=== PATIENT | male | born 1975 | race Caucasian/White ===

== ENCOUNTER 2018-04-11 18:20 | Emergency (ER) | payer MEDICAID, SELFPAY ==
[2018-04-11 18:20] VITALS: BP 119/42; PULSE 128; RESP 16; TEMP 36.3; O2SAT 99; BMI 26.6
[2018-04-11 19:41] VITALS: PULSE 81; RESP 18
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
--- NOTE | 2018-04-11 20:57 | ED.DEP ---
ED Disposition - Plan for ED Patient: Disposition: Home or Assisted Living Chief Complaint: Upper Extremity Injury Instructions: ED Fx Hand Closed Prescriptions: Hydrocodone/Acetaminophen [[place] 5-325 Tablet] 1 - 2 each PO 4X/DAY PRN PRN 5 Days #20 tablet PRN Reason: Pain Referrals: Tawanda Suero DO [STAFF PHYSICIAN] - 1 Week
[2018-04-11] MEDS: HYDROcodone Bitartrate/Apap 5/325 Tablet PO (20:58)
[2018-04-11 21:01] VITALS: PULSE 79; RESP 18
--- NOTE | 2018-04-11 21:02 | ED.RN ---
THIS NURSE REVIEWED D/C INSTRUCTIONS WITH PT. PT VERBALIZED UNDERSTANDING OF INSTRUCTIONS. PT DENIES FURTHER NEEDS OR QUESTIONS AT THIS TIME. PT AMBULATES FROM DEPARTMENT ON OWN WITHOUT ASSISTANCE FROM STAFF
== END 2018-04-11 21:03 | disposition home or self-care (01) ==
PROVIDERS: Emergency Provider Emergency Medicine; Family Provider Family Medicine; PCP Family Medicine
DX: S62.316A Displaced fracture of base of fifth metacarpal bone, right hand, initial encounter for closed fracture (principal); W51.XXXA Accidental striking against or bumped into by another person, initial encounter; Y93.9 Activity, unspecified; Y92.9 Unspecified place or not applicable; F41.9 Anxiety disorder, unspecified; F32.9 Major depressive disorder, single episode, unspecified; Z79.899 Other long term (current) drug therapy; Z72.0 Tobacco use
CPT/HCPCS: 73110; 73130; 99283

== ENCOUNTER 2018-08-13 11:18 | Emergency (ER) | payer MEDICAID, SELFPAY ==
[2018-08-13 11:18] VITALS: BP 130/82; PULSE 89; RESP 16; TEMP 36.7; O2SAT 100; BMI 26.4
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
--- NOTE | 2018-08-13 11:34 | ED.DEP ---
ED Disposition - Plan for ED Patient: Chief Complaint: Upper Extremity Injury Instructions: ED Contusion Upper Ext Referrals: Job Duff MD [Primary Care Provider] - Additional Instructions: Follow-up with your outpatient providers all of them, and orthopedic surgeons follow all instructions you have been given
[2018-08-13 11:50] VITALS: BP 129/78; PULSE 96; RESP 16; O2SAT 100
== END 2018-08-13 12:05 | disposition home or self-care (01) ==
LOC: ED 11:57
PROVIDERS: Emergency Provider Emergency Medicine; Family Provider Family Medicine; PCP Family Medicine
DX: M79.641 Pain in right hand (principal); G89.29 Other chronic pain
CPT/HCPCS: 99282

== ENCOUNTER 2018-08-24 21:11 | Emergency (ER) | payer MEDICAID, SELFPAY ==
[2018-08-24 21:12] VITALS: BP 135/87; PULSE 100; RESP 16; TEMP 36.6; O2SAT 100; BMI 26.4
--- NOTE | 2018-08-24 21:44 | RAD_ITS ---
STUDY: X-RAY - LEFT FOOT CLINICAL: Male, 43 years old. Trauma TECHNIQUE: 3 view(s) of the foot. COMPARISON: None. FINDINGS: Normal talus, calcaneus, and tarsal bones. Normal visualized subtalar, talonavicular, calcaneocuboid, tarsal and tarsometatarsal articulations. Normal metatarsi. Normal metatarsophalangeal joint of the great toe. Normal tibial and fibular sesamoid bones. Normal interphalangeal joint of the great toe. Normal phalanges of the great toe. Normal second through fifth metatarsophalangeal joints. Normal interphalangeal joints and phalanges of the lesser toes. The soft tissue structures are unremarkable. RAD/Foot min 3 Views IMPRESSION: Normal x-ray examination of the foot. Electronically Signed: Eusebio Ashraf MD at 22:44 EST , Service support ,
[2018-08-24] MEDS: Naproxen 500 MG Tablet PO (21:54)
--- NOTE | 2018-08-24 21:59 | ED.VISSUMM ---
- ER Visit Summary Date of Service: 08/24/18 Chief Complaint: Fall History of Present Illness: The patient is a [address] Duff. He reports that 3 hours ago he slipped in his kitchen and twisted his left foot underneath him awkwardly. He has pain in his foot and ankle that are 10 out of 10 severity. Reports that he also hit both elbows on the floor. He has left elbow pain is 5 out of 10 severity and right elbow pain is 10 out of 10 severity. He denies any blow to the head or loss of consciousness. No neck or back pain. Physical Examination: Vitals: Stable. Afebrile. Neck: No vertebral tenderness. Full ROM without difficulty. Cleared by NEXUS criteria. Back: No vertebral tenderness. General: A&O x 3. NAD. Cardiovascular exam: Regular rate and rhythm, no murmur, rub or gallop. Respiratory exam: Chest nontender. No crepitus. Clear to auscultation bilaterally. No wheezes or stridor. Abdominal exam: Soft, nontender, nondistended, normal bowel sounds. No pain in RUQ or LUQ specifically. No peritoneal signs. Extremity: Erythema over the right olecranon process. There is no soft tissue swelling. He has no pain with flexion, extension, pronation, or supination of his elbow. There is no pain with axial load of his arm at his wrist. Left foot shows a contusion to the distal portion of the second through fifth metatarsals. This is moderately tender to palpation. He also has mild tenderness palpation to both the medial lateral malleoli. Is a 2+ dorsalis pedis pulse and normal sensation light touch. Test Results: Left foot and ankle x-rays are negative. Emergency Department Course and Treatment: Patient was treated with naproxen. He is resting comfortably. Treatment Plan: Patient will be discharged with naproxen. Instructed to follow-up with Dr. Duff in 1 week if not improving. Return to the emergency department for any worsening symptoms. Disposition: To home in improved and stable condition. Impression: 1. Fall. 2. Left foot contusion. 3. Left ankle sprain. This note was generated with [employer] software. It may contain incorrect words, spelling, and punctuation that were not noted in review of the chart prior to signing ED Disposition - Plan for ED Patient: Chief Complaint: Fall Instructions: ED Sprain Foot Prescriptions: Naproxen [Naprosyn] 500 mg PO BID #14 tablet Referrals: Job Duff MD [Primary Care Provider] - 1 Week if not improving
--- NOTE | 2018-08-24 22:00 | RAD_ITS ---
STUDY: X-RAY - LEFT ANKLE REASON FOR EXAM: Male, 43 years old. Trauma TECHNIQUE: 3 view(s) of the ankle. COMPARISON: None. FINDINGS: Normal visualized distal tibia and fibula. Normal medial and lateral malleoli. Normal tibiotalar articulation and ankle mortise. Normal visualized talus and calcaneus. The visualized subtalar, talonavicular, calcaneocuboid and tarsal articulations are normal. Mild soft tissue swelling overlying the lateral malleolus RAD/Ankle min 3 Views IMPRESSION: Mild lateral malleolus sprain. No evidence for acute fracture Electronically Signed: Isaiah Sorensen MD at 22:46 EST , Service support ,
--- NOTE | 2018-08-24 22:07 | ED.DCSUM_ITS ---
- ER Visit Summary Date of Service: 08/24/18 Chief Complaint: Fall History of Present Illness: The patient is a [address] Duff. He reports that 3 hours ago he slipped in his kitchen and twisted his left foot underneath him awkwardly. He has pain in his foot and ankle that are 10 out of 10 severity. Reports that he also hit both elbows on the floor. He has left elbow pain is 5 out of 10 severity and right elbow pain is 10 out of 10 severity. He denies any blow to the head or loss of consciousness. No neck or back pain. Physical Examination: Vitals: Stable. Afebrile. Neck: No vertebral tenderness. Full ROM without difficulty. Cleared by NEXUS criteria. Back: No vertebral tenderness. General: A&O x 3. NAD. Cardiovascular exam: Regular rate and rhythm, no murmur, rub or gallop. Respiratory exam: Chest nontender. No crepitus. Clear to auscultation bilateral ly. No wheezes or stridor. Abdominal exam: Soft, nontender, nondistended, normal bowel sounds. No pain in RUQ or LUQ specifically. No peritoneal signs. Extremity: Erythema over the right olecranon process. There is no soft tissue swelling. He has no pain with flexion, extension, pronation, or supination of his elbow. There is no pain with axial load of his arm at his wrist. Left foot shows a contusion to the distal portion of the second through fifth metatarsals. This is moderately tender to palpation. He also has mild tenderness palpation to both the medial lateral malleoli. Is a 2+ dorsalis pedis pulse and normal sensation light touch. Test Results: Left foot and ankle x-rays are negative. Emergency Department Course and Treatment: Patient was treated with naproxen. He is resting comfortably. Treatment Plan: Patient will be discharged with naproxen. Instructed to follow- up with Dr. Duff in 1 week if not improving. Return to the emergency department for any worsening symptoms. Disposition: To home in improved and stable condition. Impression: 1. Fall. 2. Left foot contusion. 3. Left ankle sprain. This note was generated with [employer] software. It may contain incorrect words, spelling, and punctuation that were not noted in review of the chart prior to signing ED Disposition - Plan for ED Patient: Chief Complaint: Fall Instructions: ED Sprain Foot Prescriptions: Naproxen [Naprosyn] 500 mg PO BID #14 tablet Referrals: Job Duff MD [Primary Care Provider] - 1 Week if not improving
--- OUTSIDE RECORDS SUMMARY | 2018-10-29 12:55 | XMS RPT_ITS | Summary of Care ---
:1975 Author Organization [facility] Address [address] [place] [address] Care Team Providers Name Role Phone Alice Duff MD Primary Care Provider Reason for Visit Reason Comments Chest Pain Auth/Cert Status Reason Specialty Diagnoses / Procedures Referred By Contact Referred To Contact Diagnoses Lightheadedness SOB (shortness of breath) Tachycardia Fever, unspecified fever cause Chest pain, unspecified type Sepsis (HCC) Encounter Details Date Type Department Care Team Description 06/26/2018 - Emergency [place] Ariel Brandt, DO [address] [facility] [place] [address] [facility] [place] [id number] [phone] Chest pain, unspecified type (Primary Dx); 06/28/2018 [facility], [facility] [address] [id number] [phone] Fever, unspecified fever cause; Oncology/Surgery Argenis Parekh MD [address] [id number] [phone] SOB (shortness of breath); [address] [place] [address] Tiago Chapa, [address] [id number] [phone] Tachycardia; [place] [id number] Allergies Active Allergy Reactions Severity Noted Date Comments Ibuprofen 06/26/2018 Penicillins 06/26/2018 Tetracycline 06/26/2018 as of this encounter Medications Prescription Sig. Disp. Refills Start Date End Date Status traMADol (ULTRAM) 50 mg Take 50 mg by Active tablet mouth 2 (two) times a day as needed for pain . gabapentin (NEURONTIN) Take 100 mg by Active 100 MG capsule mouth every 8 (eight) hours . buPROPion (WELLBUTRIN Take 150 mg by Active XL) 150 MG 24 hr tablet mouth 3 (three) times a day . QUEtiapine (SEROQUEL) Take 100 mg by Active 100 MG tablet mouth nightly . ciprofloxacin HCl Take 1 (one) 20 tablet 0 06/28/2018 Active (CIPRO) 500 MG tablet tablet (500 mg total) by mouth 2 (two) times a day . metroNIDAZOLE (FLAGYL) Take 1 (one) 30 tablet 0 06/28/2018 Active 500 MG tablet tablet (500 mg total) by mouth 3 (three) times a day with meals . as of this encounter Active Problems Problem Noted Date Sepsis (HCC) 06/27/2018 Social History Tobacco Use Types Packs/Day Years Used Date Current Every Day Smoker Cigarettes 1 Tobacco Cessation: Ready to Quit: No Alcohol Use Drinks/Week oz/Week Comments Yes OCC Sex Assigned at Date Recorded Not on file as of this encounter Last Filed Vital Signs Vital Sign Reading Time Taken Blood Pressure 114/72 06/28/2018 10:52 AM EST Pulse 94 06/28/2018 10:52 AM EST Temperature 36.7 ??C (98 ??F) 06/28/2018 11:48 AM EST Respiratory Rate 16 06/28/2018 10:52 AM EST Oxygen Saturation 100% 06/28/2018 10:52 AM EST Inhaled Oxygen Concentration - - Weight 86.6 kg (190 lb 14.7 oz) 06/27/2018 3:02 AM EST Height 177.8 cm (5' 10) 06/27/2018 3:02 AM EST Body Mass Index 27.39 06/27/2018 3:02 AM EST in this encounter Discharge Summaries Argenis Parekh MD - 06/28/2018 11:46 AM ESTFormatting of this note may be different from the original. DISCHARGE SUMMARY Patient: Ken Griffin Account: [id number] Admitted: 06/26/2018 Discharge Date/Time: No discharge date for patient encounter. Clinical Summary Discharge Diagnoses and Associated Hospital Course: Ken??Gaby??is a 43 y.o.??male??patient of Alice Duff MD??with history of anxiety/depression, and reported [place] in his 30's??presented with chest pain, and SOB. ?? 1. Atypical chest pain; possibly GERD due to abdominal pain; trop's negative and repeat EKG showed no ischemic changes. Resolved. 2. Sepsis; presented with fever, tachycardia, hypotension, and colitis. Received fluid bolus but still hypotensive; started maintenance IVF. Received more fluids over night. Remains afebrile and hemodynamically stable on 06/28. Resolved. Blood cx's so far negative. 3. Acute colitis; CT a/p showed colitis; possible IBD; Sed rate and CRP ordered and GI consulted. Antibiotics changed to Cipro and Flagyl. Tolerated diet well. GI recommended antibiotics for total of10 days then f/u with GI; will need C Scope in 6-8 weeks. 4. Acute diarrhea; was profuse about 10 times per day but now slowing down. C diff toxin and stool PCR sent. Resolved. 5. Acute renal failure; Cre 1.5 due to dehydration and diarrhea; started IVF and monitor Cre. Cre 0.69 and normal on 06/28. Resolved. 6. Hyponatremia; sodium 133 due to dehydration; IVF and monitor. Sodium 145 and normal. Resolved. 7. Anxiety/ depression; continue Wellbutrin. 8. Chronic pain syndrome; continue Neurontin and Tramadol ? Disposition ?? Discharge Location: Home ?? Estimated Discharge Date: 06/28 Surgeries No admission procedures for hospital encounter. Procedures No orders of the defined types were placed in this encounter. Consults Procedures ??? Hospitalize Patient To : ??? Inpatient consult to Gastroenterology Other Tests No orders of the defined types were placed in this encounter. Allergies Ibuprofen; Penicillins; and Tetracycline Discharge Diet Resume home diet Discharge Medications Medication List START taking these medications ciprofloxacin HCl 500 MG tablet Commonly known as: CIPRO Take 1 (one) tablet (500 mg total) by mouth 2 (two) times a day . metroNIDAZOLE 500 MG tablet Commonly known as: FLAGYL Take 1 (one) tablet (500 mg total) by mouth 3 (three) times a day with meals . CONTINUE taking these medications buPROPion 150 MG 24 hr tablet Commonly known as: WELLBUTRIN XL gabapentin 100 MG capsule Commonly known as: NEURONTIN QUEtiapine 100 MG tablet Commonly known as: SEROQUEL traMADol 50 mg tablet Commonly known as: ULTRAM Where to Get Your Medications You can get these medications from any pharmacy Bring a paper prescription for each of these medications ?? ciprofloxacin HCl 500 MG tablet ?? metroNIDAZOLE 500 MG tablet Physician(s) Primary Care Provider: Alice Duff MD, , Address: [address] [place] [address] / [place] [address] Follow Up: Marco Jason MD [address] [address] Follow up call soon to schedule a colonoscopy in 6-8 weeks Additional Information Patient instructions, including activity, were given to the patient/family at discharge. Please seethe After Visit Summary in the medical record for details. Time spent on discharge: > 30 minutes Completed by: Argenis Parekh on 06/28/18, 11:46 Rubio this encounter Progress Notes Argenis Parekh MD - 06/28/2018 10:57 AM MURIELDAVITALIY PROGRESS NOTE Assessment and Plan Ken Griffin is a 43 y.o. male patient of Alice Duff MD with history of anxiety/depression, and reported [place] in his 30's presented with chest pain, and SOB. 1. Atypical chest pain; possibly GERD due to abdominal pain; trop's negative and repeat EKG showed no ischemic changes. Resolved. 2. Sepsis; presented with fever, tachycardia, hypotension, and colitis. Received fluid bolus but still hypotensive; started maintenance IVF. Received more fluids over night. Remains afebrile and hemodynamically stable on 06/28. Resolved. Blood cx's so far negative. 3. Acute colitis; CT a/p showed colitis; possible IBD; Sed rate and CRP ordered and GI consulted. Antibiotics changed to Cipro and Flagyl. Tolerated diet well. GI recommended antibiotics for total of10 days then f/u with GI; will need C Scope in 6-8 weeks. 4. Acute diarrhea; was profuse about 10 times per day but now slowing down. C diff toxin and stool PCR sent. Resolved. 5. Acute renal failure; Cre 1.5 due to dehydration and diarrhea; started IVF and monitor Cre. Cre 0.69 and normal on 06/28. Resolved. 6. Hyponatremia; sodium 133 due to dehydration; IVF and monitor. Sodium 145 and normal. Resolved. 7. Anxiety/ depression; continue Wellbutrin. 8. Chronic pain syndrome; continue Neurontin and Tramadol Quality Measures ?? DVT Prophylaxis: Lovenox ?? Guzmán Catheter: absent Disposition ?? Discharge Location: Home ?? Estimated Discharge Date: 06/28 Subjective Wants to go home. Feeling fine. Review of Systems: The following system(s) were reviewed: All other systems reviewed and negative other than HPI. Objective BP 114/72 (BP Location: Left arm, Patient Position: Lying) Pulse 94 Temp 97.5 ??F (36.4 ??C) (Oral) Resp 16 Ht 5' 10 Wt 86.6 kg (190 lb 14.7 oz) SpO2 100% BMI 27.39 kg/m?? Physical Examination: General appearance: alert, cooperative, in no acute distress. Head/Neck: Head- normocephalic. Neck- supple, non-tender, without lymphadenopathy Eyes: PERRL; EOMI ENT: Ears- hearing intact. Nose- normal and patent. Throat- mucous membranes moist, pharynx without lesions. Cardiovascular: regular rate and rhythm; normal S1, S2; no murmurs, rubs, clicks or gallops; no peripheral edema. Respiratory: lungs clear to auscultation; without wheezes, rales or rhonchi Abdomen: soft, non-tender, non-distended; positive bowel sounds Neurological: alert, oriented, normal speech; no focal findings or movement disorder noted Musculoskeletal: no significant deformity or tenderness to palpation Skin: normal coloration, texture and turgor; no lesions or eruptions Results/Medications Reviewed 06/28/18 10:57 AM: Laboratory, Radiology, Cardiology, Medications and Transcriptions Katya Vora, RICCI - 06/28/2018 10:40 AM ESTFormatting of this note may be different from the original. Daily Progress Note Patient Name: Ken Griffin MR#: [id number] Assessment/Plan: 43yo male who GI is following for acute colitis noted on CT. ESR and CRP elevated. Await stool PCR Allow for diet as tolerated. Continue Cipro and Flagyl. Can switch to PO at time of discharge. Complete 10 days total Will need Colonoscopy in 6-8 weeks. Info placed on DCI Please call if we can be of further assistance Active Problems: Sepsis (HCC) SNOMED CT(R): SEPSIS LOS: 0 days Perpetual assessment: 43yo male who GI is following for colitis Subjective: Tolerating regular diet, stool Physical Exam: General appearance: alert, appears stated age and cooperative Lungs: clear to auscultation bilaterally Heart: regular rate and rhythm, S1, S2 normal, no murmur, click, rub or gallop Abdomen: soft, non-tender; bowel sounds normal; no masses, no organomegaly Skin: Skin color, texture, turgor normal. No rashes or lesions Vital signs in last 24 hours: Temp: [97.5 ??F (36.4 ??C)-98.1 ??F (36.7 ??C)] 97.5 ??F (36.4 ??C) Heart Rate: [68-88] 84 Resp: [12-16] 16 BP: (82-107)/(39-72) 94/56 Intake/Output last 3 shifts: I/O last 3 completed shifts: In: 780.7 [P.O.:436; IV Piggyback:344.7] Out: 400 [Urine:400] Intake/Output this shift: I/O this shift: In: - Out: 100 [Stool:100] Labs No results found for: INR, PROTIME Lab Results Component Value Date ALT 14 06/27/2018 AST 21 06/27/2018 ALKPHOS 27 (L) 06/27/2018 BILITOT 1.3 06/27/2018 Lab Results Component Value Date WBC 2.86 (L) 06/28/2018 HGB 12.4 (L) 06/28/2018 HCT 36.8 (L) 06/28/2018 MCV 94.4 06/28/2018 PLT 136 (L) 06/28/2018 Bakari Arriaga, RD - 06/28/2018 8:31 AM ESTFormatting of this note may be different from the original. Nutrition Care Initial Assessment Reason for visit: Dietitian Screen Nutrition Diagnosis: No nutrition dx at this time Nutrition Intervention: continue current diet Nutrition Prescription: Diet: regular Oral nutrition supplement: n/a Tube Feeding: n/a Nutrition Goals: PO intake > 75% most meals Start Date:06/28/2018 Expected End Date:07/04/2018 Nutrition Education: No needs at this time Assessment: Patient/family comments: pt n/a at this time Pertinent clinical information: history of anxiety/depression, and reported [place] in his 30's??presented with chest pain, and SOB. ?? Past Medical History: Diagnosis Date ??? Anxiety ??? Depression ??? Myocardial infarction (HCC) Height: 5' 10 Current weight: 86.6 kg (190 lb 14.7 oz) BMI Body mass index is 27.39 kg/m??. Weight hx: noted Wt Readings from Last 5 Encounters: 06/27/18 86.6 kg (190 lb 14.7 oz) Current diet order: Regular Recent intake:no record Current intake unable to determine at this time if intake meets est needs due to limited information estimated needs. Difficulty Chewing/Swallowing: none noted at his time Skin Integrity:none noted at this time GI Function: reviewed [facility] 06/27 Physical Appearance: none noted at this time Labs: Recent Labs 06/27/18 0445 NA 137 K 3.9 BICARB 18* CL 106 GLUCOSE 97 BUN 20 CREATININE 0.81 Scheduled Meds: ??? buPROPion 450 mg Oral QAM ??? ciprofloxacin 400 mg Intravenous Q12H ??? enoxaparin (LOVENOX) injection 40 mg Subcutaneous Daily ??? gabapentin 100 mg Oral Q8H SERGEI ??? metroNIDAZOLE 500 mg Intravenous Q8H ??? QUEtiapine 100 mg Oral Nightly Continuous Infusions: ??? sodium chloride 0.9 % 75 mL/hr (06/27/18 1802) Estimated Energy Needs Total Energy Estimated Needs: 1955-2345cal Method for Estimating Needs: 25-30cal/kg/IBW Total Protein Estimated Needs: 78-94g Method for Estimating Needs: 1-1.2g/kg/IBW Bakari Selina RD/LD [phone] Fang RN - 06/27/2018 1:09 PM EST COMPLEX DISCHARGE Date: 06/27/2018 Time: 1:09 PM Patient Name: Ken Griffin Date of : 1975 Sex: Male Patient Information Primary Caregiver: Self Legal Documentation Resuscitation Status: Resuscitate Discharge Plan Shared UM/CC and RN Source of Information: Patient Contact Phone Number: MOM/ROSALIA MCKEON [phone], COUSIN KENNEY RILEY [phone], WILLIAM BUTLER [phone] Living Arrangements: Family members (COUSIN/KEMAL RILEY) Support Systems: Spouse/significant other, Family members Functional Status: Independent Type of Residence: Private residence Prior to Admission Home Care Services: No (PCP=ALICE DUFF) Current Home Equipment: None Insurance Coverage for Prescriptions: Yes Anticipated Discharge Plan Anticipated HME: None Anticipated Home Care Needs: None Potential for Readmission Potential for Readmission: No Discharge Readiness Expected Discharge Date: 06/28/18 Barriers to Discharge: No barriers [facility] Disposition [facility] Argenis Parekh MD - 06/27/2018 12:51 PM ESTDAILY PROGRESS NOTE Assessment and Plan Ken Griffin is a 43 y.o. male patient of Alice Duff MD with history of anxiety/depression, and reported [place] in his 30's presented with chest pain, and SOB. 1. Atypical chest pain; possibly GERD due to abdominal pain; trop's negative and repeat EKG showed no ischemic changes. 2. Sepsis; presented with fever, tachycardia, hypotension, and colitis. Received fluid bolus but still hypotensive; started maintenance IVF. 3. Acute colitis; CT a/p showed colitis; possible IBD; Sed rate and CRP ordered and GI consulted. Antibiotics changed to Cipro and Flagyl. Clear diet started on 06/27. 4. Acute diarrhea; was profuse about 10 times per day but now slowing down. C diff toxin and stool PCR sent. 5. Acute renal failure; Cre 1.5 due to dehydration and diarrhea; started IVF and monitor Cre. 6. Hyponatremia; sodium 133 due to dehydration; IVF and monitor. 7. Anxiety/ depression; continue Wellbutrin. 8. Chronic pain syndrome; continue Neurontin and Tramadol Quality Measures ?? DVT Prophylaxis: Lovenox ?? Guzmán Catheter: absent Disposition ?? Discharge Location: Home ?? Estimated Discharge Date: 06/28 Subjective C/o epigastric or lower chest pain; also having diarrhea Review of Systems: The following system(s) were reviewed: All other systems reviewed and negative other than HPI. Objective BP (!) 94/59 Pulse 71 Temp 97.6 ??F (36.4 ??C) (Oral) Resp 14 Ht 5' 10 Wt 86.6 kg (190 lb 14.7 oz) SpO2 99% BMI 27.39 kg/m?? Physical Examination: General appearance: alert, cooperative, in no acute distress. Head/Neck: Head- normocephalic. Neck- supple, non-tender, without lymphadenopathy Eyes: PERRL; EOMI ENT: Ears- hearing intact. Nose- normal and patent. Throat- mucous membranes moist, pharynx without lesions. Cardiovascular: regular rate and rhythm; normal S1, S2; no murmurs, rubs, clicks or gallops; no peripheral edema. Respiratory: lungs clear to auscultation; without wheezes, rales or rhonchi Abdomen: soft, non-tender, non-distended; positive bowel sounds Neurological: alert, oriented, normal speech; no focal findings or movement disorder noted Musculoskeletal: no significant deformity or tenderness to palpation Skin: normal coloration, texture and turgor; no lesions or eruptions Results/Medications Reviewed 06/27/18 12:51 PM: Laboratory, Radiology, Cardiology, Medications and Transcriptions in this encounter H&P Notes Tiago Chapa, DO - 06/27/2018 1:43 AM ESTFormatting of this note may be different from the original. [facility] [place] and Physical Patient Name: Ken Griffin : 1975 MR #: [id number] Admit Date: [id number] Physicians: Alice Duff MD (Family); No ref. provider found (Referring) Ken Griffin is a 43 y.o. male patient of Alice Duff MD with history of anxiety/depression, and reported [place] in his 30's presented with chest pain, and SOB. 1. Chest pain: no acute changes on EKG, or CXR. Normal initial troponin. Pending repeat troponins, and repeat EKG in AM. Likely CP is 2/2 2. Sepsis: unclear etiology at this point (chest complaints, colitis on CT imaging, but no initial GI complaints). Patient was febrile to 102.2 on admission, hypotensive, tachypnic, and tachycardic. Has improved with IVF. Started on Vanc/Cefepime in the ED, will continue these for now (06/27). Pending blood, urine, stools, and sputum Cx's. 3. Colitis: Possible colitis seen on abdominal CT. Originally no GI complaints, however possible diarrhea leading up to admission. Stool studies ordered, with contact plus precautions. Currently only on Vanc/Zosyn 4. TIO: Cr normal in March 2018, today Cr at 1.35. S/p IVF resuscitation. Pending repeat BMP in AM. 5. Hyponatremia: Low to 133 on admission. S/p IVF resuscitation. Pending repeat BMP in AM. 6. Anxiety/Depression: Continue home psych meds. Admitted From: home Medication Reconciliation: Verified Quality Measures ?? DVT Prophylaxis: lovenox ?? Guzmán Catheter: none Chief Complaint: Chest pain History of Present Illness: Patient states he has had on and off chest pain for the last couple of weeks. Suddenly earlier today, he had severe chest pain that took him to his knees. It was 8/10. Now he is at 6/10. Improved some with asa and nitro. Reports [place] in his 30's, but no surgery at that time. He does have some associated SOB, and states that he has had a cough leading up to this. He is also having a fever. He doesn't think he has any rashes or wounds. He initially reported no GI issues, but then admitted to having some diarrhea for a few days leading up to admission. Past Medical History: Past Medical History: Diagnosis Date ??? Anxiety ??? Depression ??? Myocardial infarction (HCC) Past Surgical Hisory: Past Surgical History: Procedure Laterality Date ??? APPENDECTOMY Family History: Family History Problem Relation Age of Onset ??? Diabetes Mother ??? Cancer Mother Social History: History Smoking Status ??? Current Every Day Smoker ??? Packs/day: 1.00 ??? Types: Cigarettes Smokeless Tobacco ??? Not on file History Alcohol Use ??? Yes Comment: OCC History Drug Use No Allergy Information: I have reviewed the patient's allergies. Ibuprofen; Penicillins; and Tetracycline Home Medications: Home medications were reviewed. ROS: All systems have been reviewed and are negative except as noted in HPI or below Constitutional:+ fever, no weight loss Eyes:No diplopia ENT:No sinus drainage CV:+ chest pain. No ankle swelling Resp:+ dyspnea. No wheezing GI:No abdominal pain.No abdominal distention. +diarrhea :No dysuria Neuro:No headache Integumentary:No skin rash MuscSkel:No arthralgias Endo:No polyuria Allergic/Immunologic:No hives Psych:No unusual mood swings. PHYSICAL EXAMINATION: BP (!) 96/57 Pulse 81 Temp 99.8 ??F (37.7 ??C) (Oral) Resp (!) 19 Wt 86.6 kg (191 lb) SpO2 97% General appearance: Alert, well appearing, and in no acute distress. HEENT: Head- normocephalic, atraumatic. Eyes - AMY bilaterally and EOMI. Ears - normal external appearance, hearing intact. Nose - normal, no erythema. Throat- mucous membranes moist, pharynx without lesions. Neck: supple, trachea midline. Cardiovascular: S1,S2 normal. No murmurs, rubs, clicks or gallops appreciated. No pedal edema. Tachycardia. Respiratory: No wheezes or rhonchi heard. Bibasilar rales. Abdomen: Soft, nontender, normal bowel sounds, nondistended, no masses or organomegaly appreciated. Neurological: Alert, oriented X 3. Grossly normal motor and sensory exam. No focal deficits. Musculoskeletal: No joint tenderness, deformity or swelling. Skin: Normal coloration. No rashes. Diaphoretic. Psych: Normal mood and affect Laboratory and Additional Data Reviewed: Laboratory 06/27/18 1:58 AM Radiology 11/20/18 1:58 AM Cardiology 06/27/18 1:58 AM Medications 06/27/18 1:58 AM Expected Discharge/Time Spent: Based on current clinical information, the expected discharge date is: day after tomorrow (06/29/2018) in this encounter Consult Notes Katya Vora CNP - 06/27/2018 11:58 AM ESTAssociated Order(s): IP CONSULT TO GASTROENTEROLOGYFormatting of this note may be different from the original. CONSULT NOTE Patient Name: Ken Griffin Admit Date: [id number] MR #: [id number] : 1975 Physicians: Alice Duff MD (Family); No ref. provider found (Referring) Assessment and Plan: 43yo male who GI is following for acute colitis noted on CT. ESR and CRP elevated. Await stool PCR Allow for diet as tolerated-may advance to regular Continue Cipro and Flagyl. Can switch to PO at time of discharge Will need Colonoscopy in 6-8 weeks Further recommendations to follow when staffed by GI attending Chief Complaint/Reason for Visit: Colitis History of Present Illness: Ken Griffin is a 43 y.o. y/o male with history of anxiety/depression, and reported [place] in his 30's presented with chest pain, and SOB. GI has been asked to evaluate for acute colitis incidentally found on CT. CT: Multiple fluid-filled loops of large and small bowel are noted. There is no pneumatosis. There is no disproportionate distention. A few mildly prominent small bowel loops in the left side of the abdomen are noted-raising concerns for colitis. Fatty liver infiltrates He states that he began having nausea and some diarrhea over the weekend. He had fevers prior to presentation. Denies history of bowel disease. No weight loss. No vomiting/abdominal pain. No endoscopicevaluation in the past WBC 9 H/H History: Past Medical History: Diagnosis Date ??? Anxiety ??? Depression ??? Myocardial infarction (HCC) Past Surgical History: Procedure Laterality Date ??? APPENDECTOMY Family History Problem Relation Age of Onset ??? Diabetes Mother ??? Cancer Mother Social History Social History ??? Marital status: Single Spouse name: N/A ??? Number of children: N/A ??? Years of education: N/A Occupational History ??? Not on file. Social History Main Topics ??? Smoking status: Current Every Day Smoker Packs/day: 1.00 Types: Cigarettes ??? Smokeless tobacco: Not on file ??? Alcohol use Yes Comment: OCC ??? Drug use: No ??? Sexual activity: Not on file Other Topics Concern ??? Not on file Social History Narrative ??? No narrative on file Allergy Information: I have reviewed the patient's allergies. Ibuprofen; Penicillins; and Tetracycline Home Medications: Prior to Admission medications Medication Sig Start Date End Date Taking? Authorizing Provider buPROPion (WELLBUTRIN XL) 150 MG 24 hr tablet Take 150 mg by mouth 3 (three) times a day . Yes Historical Provider, gabapentin (NEURONTIN) 100 MG capsule Take 100 mg by mouth every 8 (eight) hours . Yes Historical Provider, QUEtiapine (SEROQUEL) 100 MG tablet Take 100 mg by mouth nightly . Yes Historical Provider, traMADol (ULTRAM) 50 mg tablet Take 50 mg by mouth 2 (two) times a day as needed for pain . Yes Historical Provider, Review of Systems: The following system(s) were reviewed and pertinent findings noted: All other systems reviewed and negative other than HPI Physical Examination: Vital Signs: BP (!) 94/59 Pulse 71 Temp 97.6 ??F (36.4 ??C) (Oral) Resp 14 Ht 5' 10 Wt 86.6 kg (190 lb 14.7 oz) SpO2 99% BMI 27.39 kg/m?? Constitutional: Alert, cooperative, no distress, appears stated age Eyes: PERRL Ears, Nose, Mouth and Throat: septum midline, no sinus pain, oral exam negative, no masses, mucosalmembrane intact Neck: Supple, symmetrical, trachea midline, no adenopathy Respiratory: Clear to auscultation bilaterally, room air Cardiovascular: Regular rate and rhythm, S1 and S2 normal, no murmur, rub or gallop; Pulses 2+ and symmetric all extremities Gastrointestinal (Abdomen): Soft, NTTP, +bowel sounds Lymphatic: No lymphadenopathy noted in groin, axillary or cervical regions Skin: Skin color, texture, turgor normal, no rashes or lesions Musculoskeletal: No gross bony deformities Laboratory and Additional Data Reviewed: No results found for: INR, PROTIME Lab Results Component Value Date ALT 14 06/27/2018 AST 21 06/27/2018 ALKPHOS 27 (L) 06/27/2018 BILITOT 1.3 06/27/2018 Lab Results Component Value Date WBC 9.19 06/26/2018 HGB 16.0 06/26/2018 HCT 48.9 06/26/2018 MCV 89.9 06/26/2018 PLT 204 06/26/2018 Lab Results Component Value Date GLUCOSE 97 06/27/2018 CALCIUM 8.1 (L) 06/27/2018 NA 137 06/27/2018 K 3.9 06/27/2018 CL 106 06/27/2018 BUN 20 06/27/2018 CREATININE 0.81 06/27/2018 Associated attestation - Marco Jason MD - 06/28/2018 10:08 AM EST The patient was seen and examined. I agree with the findings and plans. This may be acute infectiouscolitis . Await stool studies . Continue course of antibiotics . Plan for colonoscopy as an outpatient in 6 weeks .in this encounter Miscellaneous Notes Quick Note - Jayla Rothman RN - 06/28/2018 5:56 AM EST Ken Griffin's BP around 0330 was taken via vitals cart by PSA and was 82/39.This Rn did a manualand assessed the patient, he stated c/o drowsiness. This RN got a manual BP of 92/63. Encouraged patient to sit up and wake up. HMS platen grinder notified and bolus of 1,000 ml was ordered. RAT nurse also notified and will come to assess the patient. Will continue to monitorPlan of Care - Madhuri Leg[place], [place] - 06/27/2018 6:52 PM ESTProblem: Actual or potential alteration in health Goal: Absence of healthcare acquired conditions Outcome: Partially Met Will meet goal upon discharge by continuing to maintain C/D/I skin, deep breath, and remain negativefor s/s of healthcare acquired conditions. Quick Note - Katya Vora CNP - 06/27/2018 12:19 PM ESTAttempted to see patient in consult- not in room. Will re-attempt later this aftrenoonPlan of Care - Penelope Pastrana RN - 06/27/2018 3:13 AM ESTProblem: Actual or potential alteration in health Goal: Knowledge of Enviroment Outcome: Met Patient oriented to room and call light. Bed locked and in lowest position. ED Notes - Josee Monk RN - 06/27/2018 1:53 AM ESTCalled pharmacy regarding missing Cefepime; states will send at this time.ED Attestation Note - GeovanniArielDO - 06/26/2018 10:31 PM ESTFormatting of this note may be different from the original. I personally interviewed the patient. I personally examined the patient. I discussed the patient with SOLDERING MACHINE OPERATOR/PA. I agree with the SOLDERING MACHINE OPERATOR/PA treatment plan. I agree with the SOLDERING MACHINE OPERATOR/PA plan of care. I agree with the SOLDERING MACHINE OPERATOR/PA dispo as documented. Patient presents for some chest pain. EKG without STEMI. Is febrile and tachycardia upon arrival.Denies illegal drugs other than marijuana. Heart without murmur. He is tachycardic. He is alert and oriented x3, not acutely encephalopathic. Reports history of OH as a young adult. No stent, however. Apparently on his way to see his mother in [facility] who is ill in the hospital evidently. He is attempting to hitchhike and walk there, he tells me. Etiology of his febrile state at this time unclear. Chest x-ray nonacute. Denies dysuria. No evidence of acute cellulitis. No evidence of meningitis. Flu screen pending. Anticipate admission. No lactic acidosis. Subtle CK elevation. No leukocytosis. We will cover with broad-spectrum antibiotics given fever, tachycardia and hypotension. XR Chest AP/PA and LAT Final Result No radiographic evidence for acute cardiopulmonary disease process. Workstation ID: [id number] CTA Pulm Art and CT Abd Pelvis with IV contrast (Results Pending) Medications sodium chloride (PF) (NS) flush 5 mL (not administered) sodium chloride 0.9% (NS) bolus 2,598 mL (2,598 mL Intravenous New Bag 06/26/18 3325) sodium chloride (PF) (NS) 0.9 % contrast line flush 10 mL (not administered) And sodium chloride (PF) (NS) 0.9 % contrast line flush 80 mL (not administered) And iopamidol (ISOVUE-370) 76 % injection 75 mL (not administered) acetaminophen (TYLENOL) tablet 975 mg (975 mg Oral Given 06/26/18 6000) Labs Reviewed CHEM 7 - Abnormal; Notable for the following: Result Value Sodium 133 (*) Chloride 97 (*) Bicarbonate 20 (*) Creatinine 1.35 (*) Glucose 115 (*) All other components within normal limits Narrative: The eGFR should be used for monitoring renal function only and not for medication dosing. D-DIMER, QUANTITATIVE - Abnormal; Notable for the following: D-Dimer 1.08 (*) All other components within normal limits Narrative: A D-dimer concentration of <0.5 micrograms per milliliter FEU is considered a low probability for pulmonary embolus (PE) and deep venous thrombosis (DVT). Results of this test should always be interpreted in conjunction with the patient's medical history,clinical presentation, and other findings. Clinical diagnosis should not be based on the results of the D-dimer alone. CPK - Abnormal; Notable for the following: Total CK 342 (*) All other components within normal limits HEPATIC FUNCTION PANEL - Abnormal; Notable for the following: Total Protein 8.2 (*) Total Bilirubin 1.7 (*) Alkaline Phosphatase 35 (*) All other components within normal limits BLOOD GAS, VBG WITH FULL PANEL - Abnormal; Notable for the following: pCO2, Jhoan 39.2 (*) pO2, Jhoan 22 (*) HCO3, Jhoan 20.5 (*) Base Excess, Jhoan -4.4 (*) O2 Hb 33.3 (*) Carboxyhemoglobin 1.7 (*) Sodium 132 (*) Glucose 119 (*) All other components within normal limits CBC WITH AUTO DIFFERENTIAL - Abnormal; Notable for the following: Neutrophils Abs 7.87 (*) Lymphocytes Abs 0.70 (*) All other components within normal limits TROPONIN - Normal LIPASE - Normal BLOOD CULTURE AEROBIC/ANAEROBIC BLOOD CULTURE AEROBIC/ANAEROBIC INFLUENZA A,B RAPID MOLECULAR CBC AND DIFFERENTIAL Narrative: The following orders were created for panel order CBC w/ Diff. Procedure Abnormality Status --------- ------ CBC Auto Differential[[id number]] Abnormal Final result Please view results for these tests on the individual orders. OBTAIN VENOUS BLOOD GASES URINALYSIS . . ED Provider Notes - Nenita Agrawal CNP - 06/26/2018 9:43 PM EST Formatting of this note may be different from the original. ED PROVIDER NOTE [facility] EMERGENCY DEPARTMENT NAME: Ken Griffin AGE: 43 y.o. : 1975 VISIT DATE: 06/26/2018 CSN: [id number] PCP: Alice Duff MD Chief Complaint Patient presents with ??? Chest Pain HPI 43-year-old male rise to the ER today with complaints of intermittent chest pain that started this morning and then became constant this evening. He states he went into a gas station when the chest pain came on it went down into his left arm has been constant since then. When it started again this time he became lightheaded and states he dropped to the ground because the pain was so intense. He reports that he had a minor OH when he was 32 years old. He states he is on any medications for that did not get a stent. He reports that he is on his way to [place] to see his mom and shehad a diabetic attack and is been placed in a coma there. He states he is on his way there from [place]. He states he has been walking and hitchhiking since 9:00 this morning. He denies any current lightheadedness on arrival. He denies any neck pain or back pain. He denies any shortness of breath on arrival. He denies any flank pain, abdominal pain, urine or bowel complaints, nausea or vomiting, fevers or chills, extremity complaints or paresthesias. He does take 2 medications daily and states he has her for anxiety and depression. Past Medical History: Diagnosis Date ??? Anxiety ??? Depression ??? Myocardial infarction (HCC) Past Surgical History: Procedure Laterality Date ??? APPENDECTOMY History reviewed. No pertinent family history. Social History Social History ??? Marital status: Single Spouse name: N/A ??? Number of children: N/A ??? Years of education: N/A Occupational History ??? Not on file. Social History Main Topics ??? Smoking status: Current Every Day Smoker Packs/day: 1.00 Types: Cigarettes ??? Smokeless tobacco: Not on file ??? Alcohol use Yes Comment: OCC ??? Drug use: No ??? Sexual activity: Not on file Other Topics Concern ??? Not on file Social History Narrative ??? No narrative on file Previous Medications BUPROPION (WELLBUTRIN XL) 150 MG 24 HR TABLET Take 150 mg by mouth 3 (three) times a day . GABAPENTIN (NEURONTIN) 100 MG CAPSULE Take 100 mg by mouth every 8 (eight) hours . QUETIAPINE (SEROQUEL) 100 MG TABLET Take 100 mg by mouth nightly . TRAMADOL (ULTRAM) 50 MG TABLET Take 50 mg by mouth 2 (two) times a day as needed for pain . Allergies Allergen Reactions ??? Ibuprofen ??? Penicillins ??? Tetracycline Review of Systems Constitutional: No fevers Skin: No rash Eyes: No discharge ENMT: No hemoptysis Genitourinary: no obstructive symptoms Endocrine: no polyuria Neurologic: no new numbness Psychiatric: No hallucinations Hematologic/Lymphatic: No abnormal bruising Allergic/Immunologic: no urticaria Patient Vitals for the past 24 hrs: BP Temp Temp src Pulse Resp SpO2 Weight 06/27/18 0023 (!) 96/57 - - 81 (!) 19 97 % - 06/26/18 2334 90/62 - - 84 18 97 % - 06/26/18 2222 (!) 95/58 99.8 ??F (37.7 ??C) Oral (!) 102 (!) 27 98 % - 06/26/182133 - - - - - - 86.6 kg (191 lb) 06/26/182119 - (!) 102.2 ??F (39 ??C) Oral - - - - 06/26/182117 92/63 - - (!) 126 14 98 % - Physical Exam Constitutional: He is oriented to person, place, and time. Vital signs are normal. He appears well-developed and well-nourished. Non-toxic appearance. He does not have a sickly appearance. He does notappear ill. No distress. HENT: Head: Normocephalic and atraumatic. Nose: Nose normal. Mouth/Throat: Uvula is midline, oropharynx is clear and moist and mucous membranes are normal. Eyes: EOM are normal. Pupils are equal, round, and reactive to light. No scleral icterus. Neck: Trachea normal, normal range of motion and full passive range of motion without pain. Cardiovascular: Normal rate, regular rhythm, normal heart sounds, intact distal pulses and normal pulses. Pulmonary/Chest: Effort normal. No respiratory distress. He has decreased breath sounds in the rightlower field and the left lower field. He has no wheezes. He has no rhonchi. He has no rales. He exhibits tenderness. Abdominal: Soft. Normal appearance and bowel sounds are normal. He exhibits no distension. There is tenderness in the right upper quadrant, epigastric area and left upper quadrant. There is no rigidityand no CVA tenderness. Musculoskeletal: Normal range of motion. Lymphadenopathy: Head (right side): No submental and no submandibular adenopathy present. Head (left side): No submental and no submandibular adenopathy present. He has no cervical adenopathy. Neurological: He is alert and oriented to person, place, and time. He has normal strength and normalreflexes. He is not disoriented. Skin: Skin is warm and dry. No rash noted. No erythema. Psychiatric: He has a normal mood and affect. His speech is normal and behavior is normal. Judgment and thought content normal. Cognition and memory are normal. Nursing note and vitals reviewed. Laboratory & Radiographic Imaging (if done): Results for orders placed or performed during the hospital encounter of 06/26/18 Influenza A,B Rapid Molecular Result Value Ref Range Influenza A Not Detected Not Detected Influenza B Not Detected Not Detected Chem 7 Result Value Ref Range Sodium 133 (L) 135 - 145 mmol/L Potassium 3.9 3.5 - 5.1 mmol/L Chloride 97 (L) 98 - 108 mmol/L Bicarbonate 20 (L) 21 - 32 mmol/L Creatinine 1.35 (H) 0.50 - 1.30 mg/dL Glucose 115 (H) 65 - 99 mg/dL BUN 23 8 - 25 mg/dL eGFR 64 >=60 mL/min/1.73 m2 BUN/Creatinine Ratio 17.0 10.0 - 20.0 Anion Gap 20 10 - 20 mmol/L Troponin Result Value Ref Range Troponin T <0.010 <0.040 ng/mL Urinalysis Result Value Ref Range Color, Urine [place] (A) Colorless, Yellow Clarity, Urine Hazy (A) Clear Specific [place] 1.025 1.005 - 1.025 pH, Urine 5.0 5.0 - 7.0 Protein, Urine 30 (A) Negative mg/dL Glucose, Urine Negative Negative mg/dL Ketones, Urine Trace (A) Negative mg/dL Bilirubin, Urine Negative Negative Urobilinogen, Urine <2.0 <2.0 mg/dL Blood, Urine Small (A) Negative Nitrite, Urine Negative Negative Leukocyte Esterase, Urine Negative Negative WBCs, Urine 3 0 - 5 /hpf RBCs, Urine 1 0 - 3 /hpf Bacteria, Urine Few (A) None Seen /hpf Squamous Epithelial <1 0 - 4 /hpf Hyaline Casts 3-5 (A) 0 - 2 /lpf Mucus, Urine Few (A) None Seen, Rare /lpf D-Dimer, Quantitative Result Value Ref Range D-Dimer 1.08 (H) 0.27 - 0.49 mcg/mL FEU CPK NO MB Result Value Ref Range Total CK 342 (H) 60 - 225 U/L Hepatic Function Panel (LFT) Result Value Ref Range Total Protein 8.2 (H) 6.0 - 8.0 g/dL Albumin 4.4 3.2 - 5.2 g/dL Total Bilirubin 1.7 (H) 0.0 - 1.3 mg/dL Bilirubin, Direct 0.3 0.0 - 0.4 mg/dL Alkaline Phosphatase 35 (L) 40 - 150 U/L AST 22 0 - 45 U/L ALT 18 0 - 40 U/L Lipase Result Value Ref Range Lipase 18 15 - 65 U/L Blood Gas, Venous with Full Panel Result Value Ref Range pH, Venous 7.34 7.32 - 7.42 pCO2, Jhoan 39.2 (L) 41.0 - 51.0 mm Hg pO2, Jhoan 22 (L) 25 - 40 mm Hg HCO3, Jhoan 20.5 (L) 24.0 - 28.0 mmol/L Base Excess, Jhoan -4.4 (L) -2.0 - 2.0 O2 Sat, Jhoan 34.1 % Hemoglobin, Blood Gas 16.0 13.5 - 18.0 g/dL Hematocrit, Calculated 48.9 41.0 - 53.0 % O2 Hb 33.3 (L) 94.0 - 98.0 % Carboxyhemoglobin 1.7 (H) 0.0 - 1.5 % of total Hb Methemoglobin 0.7 0.0 - 2.0 % Sodium 132 (L) 135 - 145 mmol/L Potassium 3.9 3.5 - 5.1 mmol/L Ionized Calcium 4.6 4.5 - 5.3 mg/dL Glucose 119 (H) 65 - 99 mg/dL Lactic Acid 1.7 0.6 - 2.0 mmol/L Oxygen Delivery Device Room Air CBC Auto Differential Result Value Ref Range WBC 9.19 4.50 - 11.00 K/mcL RBC 4.87 4.50 - 5.90 M/mcL Hemoglobin 15.5 13.5 - 17.5 g/dL Hematocrit 43.8 41.0 - 53.0 % MCV 89.9 80.0 - 100.0 fL MCH 31.8 26.0 - 34.0 pg MCHC 35.4 31.0 - 37.0 g/dL Platelets 204 150 - 400 K/mcL RDW - CV 13.1 11.6 - 14.8 % MPV 9.4 9.0 - 15.5 fL Neutrophils 85.7 % Lymphocytes 7.6 % Monocytes 6.0 % Eosinophils 0.0 % Basophils 0.2 % IG Percent 0.50 % Neutrophils Abs 7.87 (H) 1.70 - 7.00 K/mcL Lymphocytes Abs 0.70 (L) 0.90 - 4.00 K/mcL Monocytes Abs 0.55 0.30 - 0.90 K/mcL Eosinophils Abs 0.00 0.00 - 0.50 K/mcL Basophils Abs 0.02 0.00 - 0.30 K/mcL IG Absolute 0.05 0.00 - 0.30 K/mcL Nucleated RBC 0.0 % Nucleated RBC Abs 0.00 0.00 - 0.00 K/mcL CTA Pulm Art and CT Abd Pelvis with IV contrast Final Result No findings diagnostic of pulmonary embolus. No acute abnormality in the chest. Multifocal atelectasis bilaterally There is suggested wall thickening in the sigmoid colon. Findings raise the question of colitis. Correlate clinically Fatty infiltration of the liver Otherwise no acute abnormality in the abdomen or the pelvis. Workstation ID: [id number] XR Chest AP/PA and LAT Final Result No radiographic evidence for acute cardiopulmonary disease process. Workstation ID: [id number] Procedures MDM 43-year-old male rise to the ER today with left-sided chest pain and left arm pain that has been intermittent and now constant. He arrives tachycardic, hypotensive at 92/63 with a fever of 102.2. Because of his complaints and his findings and IV was started and blood work was obtained. Because he was tachycardic, had a fever and had a low blood pressure sepsis fluids at 30 mL/KG werestarted. He was given Tylenol for his fever. A chest x- ray was ordered. Blood work was ordered aswell as a flu swab. Blood cultures were added. His EKG was abnormal please see the EKG notes for results. His urinalysis showed trace ketones but no obvious infection. Flu swab was negative. His VBG showed an lactate of 1.7. His Chem-7 showed creatinine 1.35 although I have nothing to compare this to he would normally be a type a patient with a could have a normal creatinine so he likely does have an acute kidney injury. His troponin is within normal limits however his d-dimer was elevated soit CTPA as well as a CT of the abdomen and pelvis were completed. CBC showed no acute concerns. His CK was elevated at 342. His LFTs and lipase were added because of some tenderness to his upper abdomen and were not remarkably abnormal. CT showed no pulmonary embolus no acute abnormality in the chest but did show some multifocal atelectasis bilaterally there was suggestion of thickened sigmoid colon which could be colitis and since he did tell me he has had diarrhea for 3 days after went back inand spoke with him I did add a stool study. This point time he will come in for further evaluation and treatment. . . Clinical Impression: SNOMED CT(R) 1. Chest pain, unspecified type CHEST PAIN 2. Fever, unspecified fever cause FEVER 3. SOB (shortness of breath) DYSPNEA 4. Tachycardia TACHYCARDIA 5. Lightheadedness LIGHTHEADEDNESS ED Disposition ED Disposition Condition Comment Hospitalize Recommended Level of Care: Med Surg Phone call required?: No Follow-up Information Follow-up information has not been specified. Contact information for after-discharge care Follow-up information has not been specified. New Prescriptions No medications on file Nenita Agrawal CNP 06/27/18 0109 ED Procedure Note - Ariel Dunn DO - 06/26/2018 9:25 PM ESTAssociated Order(s): ECG 12-LEADEKG 12-lead Date/Time: 06/26/2018 9:25 PM Performed by: ARIEL DUNN Authorized by: ARIEL DUNN Interpreted by ED attending physician Rhythm: sinus rhythm and sinus tachycardia BPM: 119 normal ND interval normal QRS interval normal QT interval Clinical impression: sinus tachycardia Comments: T wave inversion with slight depression inferior-lateral leads. No STEMI. Sinus tachycardia. ED Notes - Josee Monk RN - 06/26/2018 9:13 PM ESTBed: 56 Expected date: Expected time: Means of arrival: Comments: Medic 552, CP, Dr. Gomez this encounter Plan of Treatment Pending Results Name Priority Associated Diagnoses Date/Time Blood Culture Aerobic/Anaerobic Routine 06/26/2018 9:43 PM EST Blood Culture Aerobic/Anaerobic Routine 06/26/2018 9:43 PM EST Scheduled Tests Name Priority Associated Diagnoses Order Schedule Gram Stain (Fecal Routine Once for 1 Occurrences Leukocytes) starting 06/27/2018 until 06/27/2018 Urine Aerobic Culture Routine Once for 1 Occurrences starting 06/27/2018 until 06/27/2018 Sputum Aerobic Culture Routine Once for 1 Occurrences starting 06/27/2018 until 06/27/2018 Electrocardiogram, 12-lead Routine Once for 1 Occurrences starting 06/27/2018 until 06/27/2018 Health Maintenance Due Date Last Done Comments SEQUENTIAL INFLUENZA VACCINE (#1) 2018 TETANUS EVERY 10 YR 01/19/2028 01/18/2018 as of this encounter Procedures Procedure Name Priority Date/Time Associated Comments Diagnosis STOOL/GI PCR PANEL Routine 06/28/2018 8:53 Results for this AM EST procedure are in the results section. CBC WITH AUTO STAT 06/28/2018 8:38 Results for this DIFFERENTIAL AM EST procedure are in the results section. CBC AND DIFFERENTIAL STAT 06/28/2018 8:38 Results for this AM EST procedure are in the results section. BASIC METABOLIC PANEL STAT 06/28/2018 8:38 Results for this AM EST procedure are in the results section. TROPONIN Timed 06/27/2018 2:53 Results for this PM EST procedure are in the results section. TROPONIN Timed 06/27/2018 11:39 Results for this AM EST procedure are in the results section. SEDIMENTATION RATE Routine 06/27/2018 11:39 Results for this AM EST procedure are in the results section. CRP, INFLAMMATION Routine 06/27/2018 11:39 Results for this AM EST procedure are in the results section. EKG 06/27/2018 9:03 Results for this AM EST procedure are in the results section. TROPONIN Timed 06/27/2018 4:45 Results for this AM EST procedure are in the results section. COMPREHENSIVE Routine 06/27/2018 4:45 Results for this METABOLIC PANEL AM EST procedure are in the results section. CT ANGIOGRAPHY BALA 06/26/2018 11:16 Results for this PULMONARY ARTERIES AND PM EST procedure are in CT ABDOMEN PELVIS WITH the results IV CONTRAST ONLY section. INFLUENZA A,B RAPID BALA 06/26/2018 10:19 Results for this MOLECULAR PM EST procedure are in the results section. URINALYSIS STAT 06/26/2018 10:19 Results for this PM EST procedure are in the results section. BLOOD GAS, VBG WITH STAT 06/26/2018 9:51 Results for this FULL PANEL PM EST procedure are in the results section. TROPONIN STAT 06/26/2018 9:43 Results for this PM EST procedure are in the results section. CPK STAT 06/26/2018 9:43 Results for this PM EST procedure are in the results section. CHEM 7 STAT 06/26/2018 9:43 Results for this PM EST procedure are in the results section. CBC WITH AUTO STAT 06/26/2018 9:43 Results for this DIFFERENTIAL PM EST procedure are in the results section. BLOOD CULTURE Routine 06/26/2018 9:43 AEROBIC/ANAEROBIC PM EST BLOOD CULTURE Routine 06/26/2018 9:43 AEROBIC/ANAEROBIC PM EST D-DIMER, QUANTITATIVE STAT 06/26/2018 9:43 Results for this PM EST procedure are in the results section. CBC AND DIFFERENTIAL STAT 06/26/2018 9:43 Results for this PM EST procedure are in the results section. LIPASE STAT 06/26/2018 9:43 Results for this PM EST procedure are in the results section. HEPATIC FUNCTION PANEL STAT 06/26/2018 9:43 Results for this PM EST procedure are in the results section. XR CHEST AP/PA AND LAT BALA 06/26/2018 9:32 Results for this PM EST procedure are in the results section. ECG 12-LEAD STAT 06/26/2018 9:25 Results for this PM EST procedure are in the results section. EKG 06/26/2018 12:00 Results for this AM EST procedure are in the results section. in this encounter Results Stool/GI PCR Panel (Includes Culture and Ova and Parasites) (06/28/2018 8:53 AM) Campylobacter species Not Detected Not Detected [facility] Clostridium difficile Toxin Not Detected Not Detected [facility] Plesiomonas shigelloides Not Detected Not Detected [facility] Salmonella species Not Detected Not Detected [facility] Vibrio species Not Detected Not Detected [facility] Vibrio chloreae Not Detected Not Detected [facility] Yersinia enterocolitica Not Detected Not Detected [facility] Enteroaggregative E. coli Not Detected Not Detected [facility] ([facility] Enteropathogenic E. coli Not Detected Not Detected [facility] ([facility]) [facility] Enterotoxigenic E. coli Not Detected Not Detected [facility] ([facility]) [facility] Shiga-like toxin-producing E. Not Detected Not Detected [facility] ([facility]) 1/2 [facility] Shigella/Enteroinvasive E. Not Detected Not Detected [facility] ([facility]) [facility] Cryptosporidium species Not Detected Not Detected [facility] Cyclospora cayetanensis Not Detected Not Detected [facility] Entamoeba histolytica Not Detected Not Detected [facility] Giardia lamblia Not Detected Not Detected [facility] Adenovirus F 40/41 Not Detected Not Detected [facility] Astrovirus Not Detected Not Detected [facility] Norovirus GI/GII Not Detected Not Detected [facility] Rotavirus A DETECTED (A) Not Detected [facility] Comment: H[facility] Highly contagious; single most important cause of severe diarrhea illness in infants and young children worldwide.?Illness can range from subclinical to mild (a few days) to severe (prolonged) diseas e with significant dehydration and mortality.?Viruses are serena and remain infectious in the environment.?Antibiotic and antiviral therapy is not indicated. NOTE: Rotavirus is highly contagious and inpatients should be in contact isolation. Outpatients should use robust hand- washing and contact precautions until symptoms subside. Sapovirus Not Detected Not Detected [facility] Specimen Stool - Stool Narrative Performed At Results of PCR testing for stool pathogens must be [facility] taken into clinical context when making treatment decisions. Most gastrointestinal infections due to common bacterial and viral causes are self-limited in nature and do not require antimicrobial therapy. The use of antimicrobial therapy must be carefully weighed against unintended and potentially harmful consequences. The role of antimicrobial therapy depends on the implicated pathogen. In general, antimicrobial agents are only used to treat parasitic infections as well as select bacterial infections. Performing Organization Address City/State/Zipcode Phone Number [facility] [address] [place] [address] LAB CBC WITH AUTO DIFFERENTIAL (06/28/2018 8:38 AM) WBC 2.86 (L) 4.50 - 11.00 K/mcL [facility] LAB RBC 3.90 (L) 4.50 - 5.90 M/mcL [facility] Hemoglobin 12.4 (L) 13.5 - 17.5 g/dL [facility] Hematocrit 36.8 (L) 41.0 - 53.0 % [facility] MCV 94.4 80.0 - 100.0 fL [facility] MCH 31.8 26.0 - 34.0 pg [facility] MCHC 33.7 31.0 - 37.0 g/dL [facility] Platelets 136 (L) 150 - 400 K/mcL [facility] RDW - CV 13.5 11.6 - 14.8 % [facility] MPV 9.6 9.0 - 15.5 fL [facility] Neutrophils 30.2 % [facility] Lymphocytes 52.4 % [facility] Monocytes 13.6 % [facility] Eosinophils 2.8 % [facility] Basophils 0.7 % [facility] IG Percent 0.30Comment: The IG parameter is % [facility] the percentage of metamyelocytes, myelocytes, and promyelocytes. Neutrophils Abs 0.86 (L) 1.70 - 7.00 K/mcL [facility] Lymphocytes Abs 1.50 0.90 - 4.00 K/mcL [facility] LAB Monocytes Abs 0.39 0.30 - 0.90 K/mcL [facility] Eosinophils Abs 0.08 0.00 - 0.50 K/mcL [facility] Basophils Abs 0.02 0.00 - 0.30 K/mcL [facility] IG Absolute 0.01 0.00 - 0.30 K/mcL [facility] Nucleated RBC 0.0 % [facility] Nucleated RBC Abs 0.00 0.00 - 0.00 K/mcL [facility] Specimen Blood - Blood Performing Organization Address City/State/Zipcode Phone Number [facility] [address] [place] [address] Basic Metabolic Panel (06/28/2018 8:38 AM) Sodium 143 135 - 145 mmol/L [facility] Potassium 4.3 3.5 - 5.1 mmol/L [facility] Chloride 111 (H) 98 - 108 mmol/L [facility] Bicarbonate 23 21 - 32 mmol/L [facility] Anion Gap 13 10 - 20 mmol/L [facility] Glucose 92 65 - 99 mg/dL [facility] BUN 11 8 - 25 mg/dL [facility] Creatinine 0.69 0.50 - 1.30 mg/dL [facility] eGFR 116 >=60 mL/min/1.73 m2 [facility] BUN/Creatinine Ratio 15.9 10.0 - 20.0 [facility] Calcium 8.0 (L) 8.4 - 10.2 mg/dL [facility] Specimen Blood - Blood Narrative Performed At [facility] The eGFR should be used for monitoring renal function only and not for medication dosing. Performing Organization Address [facility] Phone Number [facility] [address] [place] [address] TROPONIN (06/27/2018 2:53 PM) Troponin T <0.010 <0.040 ng/mL [facility] Specimen Blood - Blood Performing Organization Address [facility] Phone Number [facility] [address] [place] [address] CRP, Inflammation (06/27/2018 11:39 AM) CRP(Inflammation) 24.5 (H) 0.0 - 10.0 mg/L [facility] Specimen Blood - Blood Performing Organization Address [facility] Phone Number [facility] [address] [place] [address] Sedimentation Rate (06/27/2018 11:39 AM) Sed Rate 22 (H) 0 - 15 mm/hr [facility] Specimen Blood - Blood Performing Organization Address [facility] Phone Number [facility] [address] [place] [address] TROPONIN (06/27/2018 11:39 AM) Troponin T <0.010 <0.040 ng/mL [facility] Specimen Blood - Blood Performing Organization Address [facility] Phone Number [facility] [address] [place] [address] EKG (06/27/2018 9:03 AM) Narrative Performed At Ordered by an unspecified provider. TROPONIN (06/27/2018 4:45 AM) Troponin T <0.010 <0.040 ng/mL [facility] Specimen Blood - Blood Performing Organization Address [facility] Phone Number [facility] [address] [place] [address] Comprehensive Metabolic Panel (06/27/2018 4:45 AM) Sodium 137 135 - 145 mmol/L [facility] Potassium 3.9 3.5 - 5.1 mmol/L [facility] Chloride 106 98 - 108 mmol/L [facility] Bicarbonate 18 (L) 21 - 32 mmol/L [facility] Anion Gap 17 10 - 20 mmol/L [facility] Glucose 97 65 - 99 mg/dL [facility] BUN 20 8 - 25 mg/dL [facility] Creatinine 0.81 0.50 - 1.30 mg/dL [facility] eGFR 109 >=60 mL/min/1.73 m2 [facility] BUN/Creatinine Ratio 24.7 (H) 10.0 - 20.0 [facility] Total Protein 6.6 6.0 - 8.0 g/dL [facility] Albumin 3.5 3.2 - 5.2 g/dL [facility] Calcium 8.1 (L) 8.4 - 10.2 mg/dL [facility] Alkaline Phosphatase 27 (L) 40 - 150 U/L [facility] AST 21 0 - 45 U/L [facility] ALT 14 0 - 40 U/L [facility] Total Bilirubin 1.3 0.0 - 1.3 mg/dL [facility] Specimen Blood - Blood Narrative Performed At [facility] The eGFR should be used for monitoring renal function only and not for medication dosing. Performing Organization Address [facility] Phone Number [facility] [address] [place] [address] CTA [address]m Art and CT Abd Pelvis with IV contrast (06/26/2018 11:16 PM) Impressions Performed At [facility] No findings diagnostic of pulmonary embolus. No acute abnormality in the chest. Multifocal atelectasis bilaterally There is suggested wall thickening in the sigmoid colon.?Findings raise the question of colitis.?Correlate clinically Fatty infiltration of the liver Otherwise no acute abnormality in the abdomen or the pelvis. Workstation ID:? [id number] Narrative Performed At EXAMINATION: [email or web address] CTA OF THE CHEST, CT ABDOMEN AND PELVIS WITH CONTRAST 06/26/2018 TECHNIQUE: CTA of the chest and CT of the abdomen and pelvis was performed after the administration of intravenous contrast.?Multiplanar reformatted images are provided for review.?MIP images are provided for review. Dose modulation, iterative reconstruction, and/or weight based adjustment of the mA/kV was utilized to reduce the radiation dose to as low as reasonably achievable. COMPARISON: None. HISTORY: ORDERING SYSTEM PROVIDED HISTORY: tachycardia and chest pain with a fever; TECHNOLOGIST PROVIDED HISTORY: Reason for Exam: tachycardia and chest pain with a fever Illness/Other Acuity: Acute Type of Encounter: Initial FINDINGS: CTA CHEST: Pulmonary Arteries: Peripheral detail is limited due to timing of the bolus and artifact.?No filling defects are noted. Mediastinum: No enlarged lymph nodes are noted.?Minimal pericardial fluid is noted.?Aorta is normal in caliber.?Small hiatal hernia is noted Lungs/pleura: The lungs are without acute process.?No focal consolidation or pulmonary edema.?No evidence of pleural effusion or pneumothorax. Soft Tissues/Bones: Ill-defined density along the major fissure on the right is noted.?Dependent ground-glass attenuation is noted bilaterally.?There is no consolidation. CT ABDOMEN AND PELVIS Organs: Low density throughout the liver raises a question of fatty infiltration.?No discrete lesion is noted.?There is no gallstone.?There is no definitive splenic lesion.?There is no pancreatic lesion.?Adrenal glands are normal.?Punctate right-sided renal calculi are noted.?There is no hydronephrosis or definitive renal mass. GI/Bowel: Multiple fluid-filled loops of large and small bowel are noted.?There is no pneumatosis.?There is no disproportionate distention.?A few mildly prominent small bowel loops in the left side of the abdomen are noted. Pelvis: Vascular calcifications are noted.?Urinary bladder is incompletely distended.?There is suggested mild wall thickening.?There is redundancy of the sigmoid colon with multifocal suggested wall thickening.?There is no fluid collection or adenopathy. Peritoneum/Retroperitoneum: Vascular calcifications are noted.?Scattered small lymph nodes are noted. Bones/Soft Tissues: Degenerative changes of the spine are noted.?Lower lumbar spine bone island noted Procedure Note Interface, Rad In Bull Speechq - 06/27/2018 12:04 AM EST EXAMINATION: CTA OF THE CHEST, CT ABDOMEN AND PELVIS WITH CONTRAST 06/26/2018 TECHNIQUE: CTA of the chest and CT of the abdomen and pelvis was performed after the administration of intravenous contrast. Multiplanar reformatted images are provided for review. MIP images are provided for review. Dose modulation, iterative reconstruction, and/or weight based adjustment of the mA/kV was utilized to reduce the radiation dose to as low as reasonably achievable. COMPARISON: None. HISTORY: ORDERING SYSTEM PROVIDED HISTORY: tachycardia and chest pain with a fever; TECHNOLOGIST PROVIDED HISTORY: Reason for Exam: tachycardia and chest pain with a fever Illness/Other Acuity: Acute Type of Encounter: Initial FINDINGS: CTA CHEST: Pulmonary Arteries: Peripheral detail is limited due to timing of the bolus and artifact. No filling defects are noted. Mediastinum: No enlarged lymph nodes are noted. Minimal pericardial fluid is noted. Aorta is normal in caliber. Small hiatal hernia is noted Lungs/pleura: The lungs are without acute process. No focal consolidation or pulmonary edema. No evidence of pleural effusion or pneumothorax. Soft Tissues/Bones: Ill-defined density along the major fissure on the right is noted. Dependent ground-glass attenuation is noted bilaterally. There is no consolidation. CT ABDOMEN AND PELVIS Organs: Low density throughout the liver raises a question of fatty infiltration. No discrete lesion is noted. There is no gallstone. There is no definitive splenic lesion. There is no pancreatic lesion. Adrenal glands are normal. Punctate right-sided renal calculi are noted. There is no hydronephrosis or definitive renal mass. GI/Bowel: Multiple fluid-filled loops of large and small bowel are noted. There is no pneumatosis. There is no disproportionate distention. A few mildly prominent small bowel loops in the left side of the abdomen are noted. Pelvis: Vascular calcifications are noted. Urinary bladder is incompletely distended. There is suggested mild wall thickening. There is redundancy of the sigmoid colon with multifocal suggested wall thickening. There is no fluid collection or adenopathy. Peritoneum/Retroperitoneum: Vascular calcifications are noted. Scattered small lymph nodes are noted. Bones/Soft Tissues: Degenerative changes of the spine are noted. Lower lumbar spine bone island noted IMPRESSION: No findings diagnostic of pulmonary embolus. No acute abnormality in the chest. Multifocal atelectasis bilaterally There is suggested wall thickening in the sigmoid colon. Findings raise the question of colitis. Correlate clinically Fatty infiltration of the liver Otherwise no acute abnormality in the abdomen or the pelvis. Workstation ID: [id number] Performing Organization Address City/State/Zipcode Phone Number [employer] [facility] RIS INFLUENZA A,B RAPID MOLECULAR (06/26/2018 10:19 PM) Influenza A Not Detected Not Detected [facility] Influenza B Not Detected Not Detected [facility] Specimen Swab - Nasal Narrative Performed At [facility] Test Method: Nucleic Acid Amplification Performing Organization Address City/State/Zipcode Phone Number [facility] [address] [place] [address] URINALYSIS (06/26/2018 10:19 PM) Color, Urine [place] (A) Colorless, Yellow [facility] Clarity, Urine Hazy (A) Clear [facility] Specific [place] 1.025 1.005 - 1.025 [facility] pH, Urine 5.0 5.0 - 7.0 [facility] Protein, Urine 30 (A)Comment: False Negative mg/dL [facility] positive results may occur in urines with large amounts of hemoglobin, pH greater than 8.0, contrast medium, or disinfectants including ammonium compounds. Glucose, Urine Negative Negative mg/dL [facility] Ketones, Urine Trace (A) Negative mg/dL [facility] Bilirubin, Urine Negative Negative [facility] Urobilinogen, Urine <2.0 <2.0 mg/dL [facility] Blood, Urine Small (A) Negative [facility] Nitrite, Urine Negative Negative [facility] Leukocyte Esterase, Negative Negative [facility] Urine WBCs, Urine 3 0 - 5 /hpf [facility] RBCs, Urine 1 0 - 3 /hpf [facility] Bacteria, Urine Few (A) None Seen /hpf [facility] Squamous Epithelial <1 0 - 4 /hpf [facility] Hyaline Casts 3-5 (A) 0 - 2 /lpf [facility] Mucus, Urine Few (A) None Seen, Rare /lpf [facility] Specimen Urine - Urine, Random Narrative Performed At Microscopic examination is performed on all urinalysis samples and only [facility] positive findings are reported. The test for blood on the chemical analytic portion of urinalysis may also be positive due to hemoglobinuria and myoglobinuria and if red blood cells are present they are quantified by microscopic examination. Performing Organization Address [facility] Phone Number [facility] [address] [place] [address] BLOOD GAS, VBG WITH FULL PANEL (06/26/2018 9:51 PM) pH, Venous 7.34 7.32 - 7.42 [facility] pCO2, Jhoan 39.2 (L) 41.0 - 51.0 mm Hg [facility] pO2, Jhoan 22 (L) 25 - 40 mm Hg [facility] HCO3, Jhoan 20.5 (L) 24.0 - 28.0 mmol/L [facility] Base Excess, Jhoan -4.4 (L) -2.0 - 2.0 [facility] O2 Sat, Jhoan 34.1 % [facility] Hemoglobin, Blood Gas 16.0 13.5 - 18.0 g/dL [facility] Hematocrit, Calculated 48.9 41.0 - 53.0 % [facility] O2 Hb 33.3 (L) 94.0 - 98.0 % [facility] Carboxyhemoglobin 1.7 (H) 0.0 - 1.5 % of total [facility] Comment: Hb Reference Ranges: [facility] Non-smokers:<1.5% Smokers:1.5-5.0% Heavy Smokers:5.0-9.0% Methemoglobin 0.7 0.0 - 2.0 % [facility] Sodium 132 (L) 135 - 145 mmol/L [facility] Potassium 3.9 3.5 - 5.1 mmol/L [facility] Ionized Calcium 4.6 4.5 - 5.3 mg/dL [facility] Glucose 119 (H) 65 - 99 mg/dL [facility] Lactic Acid 1.7 0.6 - 2.0 mmol/L [facility] Oxygen Delivery Device Room Air [facility] Specimen Blood - Blood Performing Organization Address [facility] Phone Number [facility] [address] [place] [address] Lipase (06/26/2018 9:43 PM) Lipase 18 15 - 65 U/L [facility] Specimen Blood - Blood Performing Organization Address [facility] Phone Number [facility] [address] [place] [address] Hepatic Function Panel (LFT) (06/26/2018 9:43 PM) Total Protein 8.2 (H) 6.0 - 8.0 g/dL [facility] Albumin 4.4 3.2 - 5.2 g/dL [facility] Total Bilirubin 1.7 (H) 0.0 - 1.3 mg/dL [facility] Bilirubin, Direct 0.3 0.0 - 0.4 mg/dL [facility] Alkaline Phosphatase 35 (L) 40 - 150 U/L [facility] AST 22 0 - 45 U/L [facility] ALT 18 0 - 40 U/L [facility] Specimen Blood - Blood Performing Organization Address [facility] Phone Number [facility] [address] [place] [address] CPK NO MB (06/26/2018 9:43 PM) Total CK 342 (H) 60 - 225 U/L [facility] Specimen Blood - Blood Performing Organization Address [facility] Phone Number [facility] [address] [place] [address] CBC WITH AUTO DIFFERENTIAL (06/26/2018 9:43 PM) WBC 9.19 4.50 - 11.00 K/mcL [facility] RBC 4.87 4.50 - 5.90 M/mcL [facility] Hemoglobin 15.5 13.5 - 17.5 g/dL [facility] Hematocrit 43.8 41.0 - 53.0 % [facility] MCV 89.9 80.0 - 100.0 fL [facility] MCH 31.8 26.0 - 34.0 pg [facility] MCHC 35.4 31.0 - 37.0 g/dL [facility] Platelets 204 150 - 400 K/mcL [facility] RDW - CV 13.1 11.6 - 14.8 % [facility] MPV 9.4 9.0 - 15.5 fL [facility] Neutrophils 85.7 % [facility] Lymphocytes 7.6 % [facility] Monocytes 6.0 % [facility] Eosinophils 0.0 % [facility] Basophils 0.2 % [facility] IG Percent 0.50Comment: The IG parameter is % [facility] the percentage of metamyelocytes, myelocytes, and promyelocytes. Neutrophils Abs 7.87 (H) 1.70 - 7.00 K/mcL [facility] Lymphocytes Abs 0.70 (L) 0.90 - 4.00 K/mcL [facility] Monocytes Abs 0.55 0.30 - 0.90 K/mcL [facility] Eosinophils Abs 0.00 0.00 - 0.50 K/mcL [facility] Basophils Abs 0.02 0.00 - 0.30 K/mcL [facility] IG Absolute 0.05 0.00 - 0.30 K/mcL [facility] Nucleated RBC 0.0 % [facility] Nucleated RBC Abs 0.00 0.00 - 0.00 K/mcL [facility] Specimen Blood - Blood Performing Organization Address [facility] Phone Number [facility] [address] [place] [address] D-DIMER, QUANTITATIVE (06/26/2018 9:43 PM) D-Dimer 1.08 (H) 0.27 - 0.49 mcg/mL FEU [facility] Specimen Blood - Blood Narrative Performed At A D-dimer concentration of <0.5 micrograms per milliliter FEU is [facility] considered a low probability for pulmonary embolus (PE) and deep venous thrombosis (DVT). Results of this test should always be interpreted in conjunction with the patient's medical history,clinical presentation, and other findings. Clinical diagnosis should not be based on the results of the D-dimer alone. Performing Organization Address [facility] Phone Number [facility] [address] [place] [address] TROPONIN (06/26/2018 9:43 PM) Troponin T <0.010 <0.040 ng/mL [facility] Specimen Blood - Blood Performing Organization Address [facility] Phone Number [facility] [address] [place] [address] Chem 7 (06/26/2018 9:43 PM) Sodium 133 (L) 135 - 145 mmol/L [facility] Potassium 3.9 3.5 - 5.1 mmol/L [facility] Chloride 97 (L) 98 - 108 mmol/L [facility] Bicarbonate 20 (L) 21 - 32 mmol/L [facility] Creatinine 1.35 (H) 0.50 - 1.30 mg/dL [facility] Glucose 115 (H) 65 - 99 mg/dL [facility] BUN 23 8 - 25 mg/dL [facility] eGFR 64 >=60 mL/min/1.73 m2 [facility] BUN/Creatinine Ratio 17.0 10.0 - 20.0 [facility] Anion Gap 20 10 - 20 mmol/L [facility] Specimen Blood - Blood Narrative Performed At [facility] The eGFR should be used for monitoring renal function only and not for medication dosing. Performing Organization Address City/State/Zipcode Phone Number [facility] [address] [place] [id number] XR CHEST AP/PA AND LAT (06/26/2018 9:32 PM) Impressions Performed At [facility] No radiographic evidence for acute cardiopulmonary disease process. Workstation ID:? [id number] Narrative Performed At EXAMINATION: [facility] TWO VIEWS OF THE CHEST 06/26/2018 9:25 pm COMPARISON: None. HISTORY: ORDERING SYSTEM PROVIDED HISTORY: CP fever; TECHNOLOGIST PROVIDED HISTORY: Reason for Exam: left sided chest pain and shortness of breath since this morning Illness/Other Acuity: Acute Cancer History: Surgery, Radiation History: Type of Encounter: Initial Additional signs and symptoms: left sided chest pain and shortness of breath since this morning FINDINGS: No focal airspace consolidation, pleural effusion or pneumothorax.?Cardiomediastinal silhouette appears within normal limits and there is no pulmonary vascular congestion.?Visualized osseous structures appear intact and grossly unremarkable, given the non dedicated imaging. Procedure Note Interface, Rad In Fuji Speechq - 06/26/2018 10:00 PM EST EXAMINATION: TWO VIEWS OF THE CHEST 06/26/2018 9:25 pm COMPARISON: None. HISTORY: ORDERING SYSTEM PROVIDED HISTORY: CP fever; TECHNOLOGIST PROVIDED HISTORY: Reason for Exam: left sided chest pain and shortness of breath since this morning Illness/Other Acuity: Acute Cancer History: Surgery, Radiation History: Type of Encounter: Initial Additional signs and symptoms: left sided chest pain and shortness of breath since this morning FINDINGS: No focal airspace consolidation, pleural effusion or pneumothorax. Cardiomediastinal silhouette appears within normal limits and there is no pulmonary vascular congestion. Visualized osseous structures appear intact and grossly unremarkable, given the non dedicated imaging. IMPRESSION: No radiographic evidence for acute cardiopulmonary disease process. Workstation ID: [id number] Performing Organization Address City/State/Zipcode Phone Number [employer] [facility] RIS ECG 12-LEAD (06/26/2018 9:25 PM) Narrative Performed At Ariel Dunn, DO? 06/26/2018?9:26 PM EKG 12-lead Date/Time: 06/26/2018 9:25 PM Performed by: ARIEL DUNN Authorized by: ARIEL DUNN Interpreted by ED attending physician Rhythm: sinus rhythm and sinus tachycardia BPM: 119 normal ND interval normal QRS interval normal QT interval Clinical impression: sinus tachycardia Comments: T wave inversion with slight depression inferior-lateral leads.? No STEMI.?Sinus tachycardia. EKG (06/26/2018) Narrative Performed At Ordered by an unspecified provider. in this encounter Visit Diagnoses Diagnosis Chest pain, unspecified type - Primary Fever, unspecified fever cause SOB (shortness of breath) Shortness of breath Tachycardia Unspecified tachycardia Lightheadedness Dizziness and giddiness Administered Medications Inactive Administered Medications - up to 3 most recent administrations Medication Order MAR Action Action Date Dose Rate Site acetaminophen (TYLENOL) tablet 650 Given 06/27/2018 21:39 EST 650 mg mg 650 mg, Oral, Every 4 hours PRN, mild pain, fever 100.4 F or greater, headaches, Starting Tue06/27/18 at 0306 acetaminophen (TYLENOL) tablet 975 mg Given 06/26/2018 21:42 EST 975 mg 975 mg, Oral, Once, Tue06/26/18 at 2125, For 1 dose buPROPion (WELLBUTRIN XL) 24 hr tablet 150 mg Given 06/27/2018 09:30 EST 150 mg 150 mg, Oral, 3 times daily, First dose on Tue06/27/18 at 0900, Tablets to be swallowed whole. DO NOT CRUSH OR CHEW. buPROPion (WELLBUTRIN XL) 24 hr tablet 450 mg Given 06/28/2018 11:05 EST 450 mg 450 mg, Oral, Every morning, First dose on Tue06/28/18 at 0900, Tablets to be swallowed whole. DO NOT CRUSH OR CHEW. buPROPion (WELLBUTRIN) tablet 300 mg Given 06/27/2018 11:31 EST 300 mg 300 mg, Oral, Once, Tue06/27/18 at 1115, For 1 dose, Do Not Crush or Chew if administering orally due to bitter taste. May be crushed if given via tube. cefePIMe (MAXIPIME) 2000 mg in New Bag 06/27/2018 02:22 EST 2,000 mg 200 mL/hr sodium chloride (NS) 0.9% 100 mL MBP 2,000 mg, Intravenous, at 200 mL/hr, Once, Tue06/26/18 at 2345, For 1 dose, Indication: Sepsis of Unknown Origin ciprofloxacin (CIPRO) IVPB 400 mg New 06/27/2018 11:32 EST 400 mg 200 mL/hr (premix) 400 mg, Intravenous, at 200 mL/hr, Every 12 hours, First dose on Tue06/27/18 at 1100, Indication: Intra-abdominal Infection New 06/28/2018 00:03 EST 400 mg 200 mL/hr New 06/28/2018 11:36 EST 400 mg 200 mL/hr enoxaparin (LOVENOX) syringe 40 Given 06/27/2018 09:29 EST 40 mg Abdominal Tissue mg 40 mg, Subcutaneous, Daily, First dose on Tue06/27/18 at 0800, Administer in abdomen unless otherwise directed by prescriber. Notify physician if patient refuses. Given 06/28/2018 09:36 EST 40 mg Abdominal Tissue flu vaccine qv 2017 (6mos up)(PF) (FLULAVAL QUAD/FLUARIX QUAD) syringe 0.5 mL 0.5 mL, Intramuscular, Prior To Discharge, administer vaccine prior to discharge, ., Starting Tue06/28/18 at 1129, For 1 dose gabapentin (NEURONTIN) capsule 100 mg Given 06/27/2018 17:50 EST 100 mg 100 mg, Oral, Every 8 hours scheduled, First dose on Tue06/27/18 at 1400 Given 06/27/2018 21:40 EST 100 mg iopamidol (ISOVUE-370) 76 % Contrast Administered 06/26/2018 22:59 EST 75 mL injection 75 mL 75 mL, Intravenous, Once in imaging, contrast, Per flatlock sewing machine operator (Radiology), Starting Tue06/26/18 at 2223, For 1 dose metroNIDAZOLE (FLAGYL) IVPB 500 Rate/Dose Change 06/27/2018 13:46 EST 200 mL/hr mg 500 mg, Intravenous, at 200 mL/hr, Every 8 hours, First dose on Tue06/27/18 at 1200, DO NOT REFRIGERATE New Bag 06/27/2018 22:13 EST 500 mg 200 mL/hr New Bag 06/28/2018 04:00 EST 500 mg 200 mL/hr naloxone (NARCAN) injection 0.1 mg 0.1 mg, Intravenous, As needed, opioid reversal, For respiratory rate less than or equal to 8 per minute., Starting Tue06/27/18 at 0953, Mix nalOXone (NARCAN) 0.4 mg (1ml) with 9 mL of Normal Saline to total 10 mL. Administer 0.1 mg (2.5ml) IV Push every 2 minutes until respiratory rate is 10 or greater. naloxone (NARCAN) injection 0.4 mg 0.4 mg, Intravenous, As needed, opioid reversal, patient is pulseless, breathless, and unresponsive, Starting Tue06/27/18 at 0953, Call a code first, then administer naloxone dose undiluted IV Push over 30 seconds. QUEtiapine (SEROQUEL) tablet 100 mg Given 06/27/2018 21:39 EST 100 mg 100 mg, Oral, Nightly, First dose on Tue06/27/18 at 0400, May cause QT interval prolongation. sodium chloride (PF) (NS) 0.9 % contrast line Given 06/26/2018 23:08 EST 10 mL flush 10 mL 10 mL, Intravenous, Once in imaging, contrast, Per flatlock sewing machine operator (Radiology) for line patency check prior to contrast administration, Starting Tue06/26/18 at 2222, For 1 dose sodium chloride (PF) (NS) 0.9 % contrast line Given 06/26/2018 23:00 EST 80 mL flush 80 mL 80 mL, Intravenous, Once in imaging, contrast, Per flatlock sewing machine operator (Radiology), Starting Tue06/26/18 at 2222, For 1 dose, ? ? 30 mL BEFORE contrast administration ? ? 50 mL AFTER contrast administration sodium chloride (PF) (NS) flush 5 mL 5 mL, Intravenous, As needed, line care, Starting Tue06/26/18 at 2122 sodium chloride 0.9 % (NS) infusion - ADS Override Pull Starting Tue06/26/18 at 2132, For 1 dose, Andrésyaz Josee : cabinet override sodium chloride 0.9% (NS) bolus New Bag 06/28/2018 06:15 EST 1,000 mL 983.6 mL/hr 1,000 mL 1,000 mL, Intravenous, at 983.6 mL/hr, Once, 06/28/18 at 0645, For 1 dose sodium chloride 0.9% (NS) bolus New Bag 06/26/2018 21:35 EST 2,598 mL 2555.4 mL/hr 2,598 mL 2,598 mL (30 mL/kg ? 86.6 kg), Intravenous, at 2,555.4 mL/hr, Once, Tue06/26/18 at 2155, For 1 dose sodium chloride 0.9% (NS) New Bag 06/27/2018 18:02 EST 75 mL/hr 75 mL/hr 125 mL/hr, Intravenous, Continuous, Starting Tu06/27/18 at 1245 Rate/Dose Change 06/28/2018 09:11 EST 125 mL/hr 125 mL/hr New 06/28/2018 11:35 EST 125 mL/hr 125 mL/hr vancomycin (VANCOCIN) 1,750 mg in New Bag 06/27/2018 00:22 EST 1,750 mg 250 mL/hr sodium chloride 0.9 % (NS) 500 mL IVPB 1,750 mg, Intravenous, at 250 mL/hr, Once, Tue06/26/18 at 2330, For 1 dose, Indication: Sepsis of Unknown Origin in this encounter
--- OUTSIDE RECORDS SUMMARY | 2018-10-29 12:56 | XMS RPT_ITS ---
:1975 Author Organization [place] Care Team Providers Name Role Phone Job uDff Primary Care Unavailable Marcelo Littlejohn Attending Unavailable Job Duff Primary Care Unavailable Octavio Sanchez Attending Unavailable Job Duff Primary Care Unavailable Allison Mcmanus Attending Unavailable ALICE DUFF) Referring Unavailable ALICE DUFF) Attending Unavailable ARIEL DAVIS Attending Unavailable ROBERT ARMSTRONG Referring Unavailable ROBERT ARMSTRONG Referring Unavailable CEBUL III, NEVAEH A Referring Unavailable ALICE DUFF) Attending Unavailable CEBUL IIINEVAEH Referring Unavailable CEBUL DILCIA, NEVAEH Lucas Attending Unavailable EVELYN JAFFE) Referring Unavailable ALICE DUFF) Attending Unavailable EVELYN JAFFE (RICCI) Referring Unavailable EVELYN JAFFE) Attending Unavailable ROBERT ARMSTRONG Attending Unavailable CEBUL III, NEVAEH A Referring Unavailable ALICE DUFF () Referring Unavailable ALLA MACHUCA Admitting Unavailable ALLA MACHUCA Attending Unavailable ALLA MACHUCA Primary Care Unavailable ALICE DUFF Consulting Unavailable PROVIDER, UNKNOWN Consulting Unavailable Tawanda Mireles Attending Unavailable ALICE DUFF Primary Care Unavailable [facility] Consulting Unavailable ERIC LIN Admitting Unavailable LITRIZZA, JOSÉ MIGUEL PAULO Attending Unavailable ELIZABETH CASTILLO Consulting Unavailable PROBLEMS PROBLEMS DATE TYPE CONDITION / CODE ATTENDING STATUS SOURCE 03/09/2018 Active Major depressive Active [facility] disorder, single [place] episode, Repository unspecified / F32.9(ICD-10) 03/09/2018 Active Anxiety disorder, NA Active [facility] unspecified / [place] F41.9(ICD-10) Repository 08/28/2018 Active 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 / Repository Z79.899(ICD-10) 08/28/2018 Active Pain in right NA Active [facility] hand / [place] M79.641(ICD-10) Repository 06/16/2018 Active Unspecified [facility] fracture of right [place] wrist and hand, Repository sequela / S62.91XS(ICD-10) 06/26/2018 Admitting Chest pain, LITRIZZA, JOSÉ MIGUEL [facility] diagnosis unspecified / PAULO Repository R07.9(ICD-10) 06/26/2018 Admitting Fever, LITRIZZA, [facility] diagnosis unspecified / PAULO Repository R50.9(ICD-10) 06/26/2018 Admitting Shortness of LITRIZZA, [facility] diagnosis breath / PAULO Repository R06.02(ICD-10) 06/26/2018 Admitting Tachycardia, LITRIZZA, [facility] diagnosis unspecified / PAULO Repository R00.0(ICD-10) 06/26/2018 Admitting Dizziness and LITRIZZA, [facility] diagnosis giddiness / PAULO Repository R42(ICD-10) 04/11/2018 Unknown S62.91XA - Allison Mcmanus Active [facility] wrist and hand, Repository initial encounter for closed fracture / S62.91XA(ICD-10) 03/09/2018 Active Encounter for NA Active [facility] screening for [place] lipoid disorders Repository / Z13.220(ICD-10) 12/01/2017 Admitting Unknown / Put[place], Active [facility] diagnosis UNK(Unknown) Tawanda Curry [facility] Repository PROCEDURES PROCEDURES No Procedure Records FoundRESULTS RESULTS XR HAND 3V PA/LAT/OBL Observed: 08/28/2018 Status: F Source: [place] RT 2:27 PM [facility] REPOSITORY * * *Final Report* * * DATE OF EXAM: Aug 28 2018 2:27PM WOX [id number] - XR HAND 3V PA/LAT/OBL RT / PROCEDURE REASON: Right hand pain * * * * Physician Interpretation * * * * RIGHT hand HISTORY: 43 years old Clinical information: Right hand pain Hx of prior fracture. Pt had a reinjury x 1 week pain over the 5th metacarpal. TECHNIQUE: Images: XR HAND 3V PA/LAT/OBL RT Comparison: 08/07/2018. RESULT: Findings: There is again noted to be deformity of the base of the fifth metacarpal which has been felt to represent a previous complex fracture with nonunion. No apparent change in the appearance of the fifth metacarpal is seen. Deformity of the distal end of the fifth metacarpal also probably due to an old healed fracture. There is narrowing of all the interphalangeal joints. There is also narrowing of the radiocarpal joint. There is also deformity of the distal end of the proximal phalanx of the fifth digit. This is similar to the previous study. This probably relates to a fracture age uncertain. There is some soft tissue swelling over this area. IMPRESSION: 1. There is again noted to be deformity of the distal end of the proximal phalanx of the fifth digit probably related to trauma- age uncertain. This should be correlated clinically 2. Deformity base of the fifth metacarpal and distal end of the fifth metacarpal as discussed. Note: Communicated with ALICE DUFF on 08/29/2018 8:13 AM via [employer] Direct Marketing Analyst: CAROLINA Transcribe Date/Time: Aug 29 2018 8:13A Dictated by : AGUSTINA WARE DO This examination was interpreted and the report reviewed and electronically signed by: AGUSTINA WARE DO on Aug 29 2018 8:24AM EST [id number] PROGRESS Observed: 08/28/2018 Status: COMPLETED Source: [place] 2:12 PM [facility] REPOSITORY HNO ID: [id number] Author: Nolvia Murphy) Allan Morley Service: (none) Author Type: Cardiology Fellow Type: Progress Notes Filed: 08/28/2018 2:28 PM Note Text: Radiology Service Progress Note PATIENT NAME: Ken Griffin DATE OF SERVICE: August 28, 2018 TIME: 2:12 PM PATIENT IDENTITY VERIFICATION COMPLETED USING TWO (2) METHODS: Patient confirmed name verbally and Date of . PATIENT GENDER DATA: Male PATIENT RELEVANT IMPLANT DATA REVIEWED: Not Applicable RADIOLOGY DEPARTMENT: General X-ray: Exam(s) Completed: Upper Extremity X-Ray(s): Hand, right : PERIPHERAL IV DATA: Not applicable SIGNED BY: RT Rosy August 28, 2018 2:12 PM PROGRESS Observed: 08/28/2018 Status: COMPLETED Source: [place] 1:25 PM [facility] REPOSITORY HNO ID: [id number] Author: Alice Hercules) Sherin Service: (none) Author Type: Physician Type: Progress Notes Filed: 08/28/2018 2:12 PM Note Text: Chief Complaint Patient presents with: Medication Request Hand Pain: (right) hand pain x 4 months HPI Ken Griffin is a 43 year old male who presents here today for Above Complaints. States that he was seen by Dr. Armstrong in July for right hand injury from April. 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 Previous polytrauma. Noncompliance. I do not recommend any surgical intervention at this time. We'll get him into a hand-based splint for times that he feels he needs it. Otherwise, occupational therapy will be helpful for continued motion and swelling control. Has been wearing brace since that time, and had follow up appointment with Dr. Davis for pain management. Gabapentin increased from 100 mg to 300 mg and was told that he was referred to wrong pain management as Dr. Davis only treats neck and back. None of this is mentioned in Dr. Davis's note, just that he is to follow back up with PCP. Discussed need for controlled substance agreement and urine drug screen as gabapentin is controlled substance. Patient denies illicit drug use. No referral for OT in the system. Complaining of increased right hand pain from fallling on his right hand last week while sleepwalking. Denies bruising or erythema. Not treating with anything at home other than gabapentin which helps minimally. Patient requesting refill for his Wellbutrin which he takes for anxiety and depression in combination with Celexa. Medication working well for anxiety and depression symptoms. Following up with psychiatry regularly for schizoaffective disorder and borderline personality disorder. Past medical history, appointments, medications, allergies reviewed. Previous Medical History PAST MEDICAL HISTORY Diagnosis Date - Anxiety - Borderline personality disorder ([facility]) - Depression - Migraine - Orbital fracture ([facility]) 2015 left, s/p repair with 4 plates - Schizoaffective disorder ([facility]) psychiatry-counseling center - Tobacco use Previous Surgical History PAST SURGICAL HISTORY Procedure Laterality Date - APPENDECTOMY 1994 - FACIAL RECONSTRUCTION SURGERY HX 12/2015 Family History FAMILY HISTORY Problem Relation Age of Onset - other (Other) Father MVA - Diabetes Mother - Cancer Mother cervical - Hypertension Mother - Hyperlipidemia Mother - Heart Mother - COPD Mother - Diabetes Brother - Diabetes Maternal Grandmother - Coronary Artery Disease Maternal Grandmother GA - Diabetes Paternal Grandmother - Diabetes Maternal Aunt - Stroke Maternal Grandfather Patient Allergies ALLERGIES Allergen Reactions - Ibuprofen GI Upset - Penicillins Rash - Tetracycline Rash Current Medications Current Outpatient Prescriptions on File Prior to Visit: Ngdvuprjblonjfa-Tzakquebb-DE (BROMFED DM) 2-30-10 mg/5 mL syrup Take 10 mL by mouth four times daily as needed. ondansetron orally disintegrating (ZOFRAN ODT) 4 mg disintegrating tablet Take 1 tablet by mouth every 8 hours as needed. gabapentin (NEURONTIN) 300 mg capsule Take 1 capsule by mouth twice daily for 30 days. Sevwleudfuskzqr-Vnbhifvzo-GM (BROMFED DM) 2-30-10 mg/5 mL syrup Take 5 mL by mouth four times daily as needed. buPROPion XL (WELLBUTRIN XL) 150 mg 24 hr tablet Take 3 tablets by mouth once daily. QUEtiapine XR (SEROQUEL XR) 50 mg Tb24 Take 100 mg by mouth daily at bedtime. ibuprofen (MOTRIN) 200 mg tablet Take 200 mg by mouth every 6 hours as needed. acetaminophen (TYLENOL) 325 mg tablet Take 2 tablets by mouth every 6 hours as needed for Pain. meloxicam (MOBIC) 15 mg tablet Take 1 tablet by mouth once daily. (Patient not taking: Reported on 08/28/2018 ) No current facility-administered medications on file prior to visit. Social History Social History Marital status: Spouse name: Years of education: Number of children: Social History Main Topics Smoking status: Current Every Day Smoker Packs/day: 0.75 Years: 25.00 Types: Cigarettes Smokeless tobacco: Never Used Comment: previously smoked 2 packs per day Alcohol use: No Drug use: No Sexual activity: Yes Partners with: Female Other Topics Concern Caffeine Concern Not Asked Comment:2 beverages daily Exercise Not Asked Comment:Walking 2 miles daily Review of Symptoms REVIEW OF SYSTEMS GENERAL: No weight loss, malaise or fevers RESPIRATORY: Negative for cough, hemoptysis, wheezing, COPD, dyspnea or shortness of breath CARDIOVASCULAR: Negative for chest pain, leg swelling, hypertension, CHF or palpitations EXAM: BP 116/74 Pulse 108 Resp 16 Wt 89.5 kg (197 lb 6.4 oz) BMI 28.32 kg/m? General Appearance: Well appearing, alert, in no acute distress, well-hydrated, well nourished.. Skin: Skin color, texture, turgor normal, no suspicious rashes or lesions. Lungs: lungs clear to auscultation. No wheezing, rhonchi, rales. Heart: RRR without murmur, gallop, or rubs. No ectopy. Musculoskeletal: TTP over right metacarpal without swelling or bruising. Normal ROM of fingers and wrist. 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 Health Maintenance List LIPID SCREEN due on 03/09/2023 DTAP,TDAP,TD(2 - Td) due on 01/19/2028 ONE PNEUMOVAX PRIOR TO AGE 65 Completed INFLUENZA Completed ASSESSMENT/PLAN: 1. Right hand pain - ICD9: 729.5, ICD10: M79.641 (primary diagnosis) 2/2 previous 5th metacarpal fracture. New injury with fall. Repeat xray. Refer to OT as recommended by Dr. Armstrong. Would avoid any narcotic medications for pain based on psych and social history. Recommend ice and OTC analgesics. Will call with urine drug screen results as patient will require gabapentin refills from this office. - XR HAND GENERAL 3V PA/LAT/OBL RT 2. Anxiety - ICD9: 300.00, ICD10: F41.9 Refill Wellbutrin. F/u with psychiatry. - BUPROPION XL 150 MG TAB - TOX SCREEN ROUT UR - PAIN PANEL, UR QUANT 3. Depression, unspecified depression type - ICD9: 311, ICD10: F32.9 See above. - BUPROPION XL 150 MG TAB - TOX SCREEN ROUT UR - PAIN PANEL, UR QUANT 4. Controlled substance agreement signed - ICD9: V58.69, ICD10: Z79.899 - TOX SCREEN ROUT UR - PAIN PANEL, UR QUANT Alice Duff MD CNOV Observed: 08/28/2018 Status: COMPLETED Source: [place] 1:20 PM [facility] REPOSITORY [facility] KEN GRIFFIN ([id number]) 1975 M Date Time Provider Department 08/28/18 1:20 PM ALICE DUFF[facility] During your visit today, we recorded the following information about you: Pulse Respiration Blood pressure Weight 108/minute 16/minute 116/74 89.5 kg Alice Duff MD 08/28/2018 2:12 PM Signed Chief Complaint Patient presents with: Medication Request Hand Pain: (right) hand pain x 4 months HPI Ken Griffin is a 43 year old male who presents here today for Above Complaints. States that he was seen by Dr. Armstrong in July for right hand injury from April. 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 Previous polytrauma. Noncompliance. I do not recommend any surgical intervention at this time. We'll get him into a hand-based splint for times that he feels he needs it. Otherwise, occupational therapy will be helpful for continued motion and swelling control. Has been wearing brace since that time, and had follow up appointment with Dr. Davis for pain management. Gabapentin increased from 100 mg to 300 mg and was told that he was referred to wrong pain management as Dr. Davis only treats neck and back. None of this is mentioned in Dr. Davis's note, just that he is to follow back up with PCP. Discussed need for controlled substance agreement and urine drug screen as gabapentin is controlled substance. Patient denies illicit drug use. No referral for OT in the system. Complaining of increased right hand pain from fallling on his right hand last week while sleepwalking. Denies bruising or erythema. Not treating with anything at home other than gabapentin which helps minimally. Patient requesting refill for his Wellbutrin which he takes for anxiety and depression in combination with Celexa. Medication working well for anxiety and depression symptoms. Following up with psychiatry regularly for schizoaffective disorder and borderline personality disorder. Past medical history, appointments, medications, allergies reviewed. Previous Medical History PAST MEDICAL HISTORY Diagnosis Date - Anxiety - Borderline personality disorder ([facility]) - Depression - Migraine - Orbital fracture ([facility]) 2015 left, s/p repair with 4 plates - Schizoaffective disorder ([facility]) psychiatry-counseling center - Tobacco use Previous Surgical History PAST SURGICAL HISTORY Procedure Laterality Date - APPENDECTOMY 1994 - FACIAL RECONSTRUCTION SURGERY HX 12/2015 Family History FAMILY HISTORY Problem Relation Age of Onset - other (Other) Father MVA - Diabetes Mother - Cancer Mother cervical - Hypertension Mother - Hyperlipidemia Mother - Heart Mother - COPD Mother - Diabetes Brother - Diabetes Maternal Grandmother - Coronary Artery Disease Maternal Grandmother GA - Diabetes Paternal Grandmother - Diabetes Maternal Aunt - Stroke Maternal Grandfather Patient Allergies ALLERGIES Allergen Reactions - Ibuprofen GI Upset - Penicillins Rash - Tetracycline Rash Current Medications Current Outpatient Prescriptions on File Prior to Visit: Xjwuevjajseblpn-Yltjxbjol-GP (BROMFED DM) 2-30-10 mg/5 mL syrup Take 10 mL by mouth four times daily as needed. ondansetron orally disintegrating (ZOFRAN ODT) 4 mg disintegrating tablet Take 1 tablet by mouth every 8 hours as needed. gabapentin (NEURONTIN) 300 mg capsule Take 1 capsule by mouth twice daily for 30 days. Tqoxxbgkcczfvum-Fnpjkcubu-DF (BROMFED DM) 2-30-10 mg/5 mL syrup Take 5 mL by mouth four times daily as needed. buPROPion XL (WELLBUTRIN XL) 150 mg 24 hr tablet Take 3 tablets by mouth once daily. QUEtiapine XR (SEROQUEL XR) 50 mg Tb24 Take 100 mg by mouth daily at bedtime. ibuprofen (MOTRIN) 200 mg tablet Take 200 mg by mouth every 6 hours as needed. acetaminophen (TYLENOL) 325 mg tablet Take 2 tablets by mouth every 6 hours as needed for Pain. meloxicam (MOBIC) 15 mg tablet Take 1 tablet by mouth once daily. (Patient not taking: Reported on 08/28/2018 ) No current facility-administered medications on file prior to visit. Social History Social History Marital status: Spouse name: Years of education: Number of children: Social History Main Topics Smoking status: Current Every Day Smoker Packs/day: 0.75 Years: 25.00 Types: Cigarettes Smokeless tobacco: Never Used Comment: previously smoked 2 packs per day Alcohol use: No Drug use: No Sexual activity: Yes Partners with: Female Other Topics Concern Caffeine Concern Not Asked Comment:2 beverages daily Exercise Not Asked Comment:Walking 2 miles daily Review of Symptoms REVIEW OF SYSTEMS GENERAL: No weight loss, malaise or fevers RESPIRATORY: Negative for cough, hemoptysis, wheezing, COPD, dyspnea or shortness of breath CARDIOVASCULAR: Negative for chest pain, leg swelling, hypertension, CHF or palpitations EXAM: BP 116/74 Pulse 108 Resp 16 Wt 89.5 kg (197 lb 6.4 oz) BMI 28.32 kg/m? General Appearance: Well appearing, alert, in no acute distress, well-hydrated, well nourished.. Skin: Skin color, texture, turgor normal, no suspicious rashes or lesions. Lungs: lungs clear to auscultation. No wheezing, rhonchi, rales. Heart: RRR without murmur, gallop, or rubs. No ectopy. Musculoskeletal: TTP over right metacarpal without swelling or bruising. Normal ROM of fingers and wrist. 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 Health Maintenance List LIPID SCREEN due on 03/09/2023 DTAP,TDAP,TD(2 - Td) due on 01/19/2028 ONE PNEUMOVAX PRIOR TO AGE 65 Completed INFLUENZA Completed ASSESSMENT/PLAN: 1. Right hand pain - ICD9: 729.5, ICD10: M79.641 (primary diagnosis) 2/2 previous 5th metacarpal fracture. New injury with fall. Repeat xray. Refer to OT as recommended by Dr. Armstrong. Would avoid any narcotic medications for pain based on psych and social history. Recommend ice and OTC analgesics. Will call with urine drug screen results as patient will require gabapentin refills from this office. - XR HAND GENERAL 3V PA/LAT/OBL RT 2. Anxiety - ICD9: 300.00, ICD10: F41.9 Refill Wellbutrin. F/u with psychiatry. - BUPROPION XL 150 MG TAB - TOX SCREEN ROUT UR - PAIN PANEL, UR QUANT 3. Depression, unspecified depression type - ICD9: 311, ICD10: F32.9 See above. - BUPROPION XL 150 MG TAB - TOX SCREEN ROUT UR - PAIN PANEL, UR QUANT 4. Controlled substance agreement signed - ICD9: V58.69, ICD10: Z79.899 - TOX SCREEN ROUT UR - PAIN PANEL, UR QUANT Alice Duff MD Referring Provider: SELF [200] Allergies As of Date: 08/28/2018 Noted Allergy Reaction IBUPROFEN 03/09/2018 8 - GI Upset PENICILLINS 02/11/2016 2 - Rash TETRACYCLINE 02/11/2016 2 - Rash Date Reviewed: 08/28/2018 Reviewed by: Lakia Wilkes Collection Support Specialist - Fully Assessed Reason for Visit: Medication Request [138] Hand Pain [1581] Cmt: (right) hand pain x 4 months Reason For Visit History Recorded Primary Visit Diagnosis:Right hand pain [M79.641] Other Visit Diagnoses:Anxiety [F41.9] Depression, unspecified depression type [F32.9] Controlled substance agreement signed [Z79.899] Order(s):buPROPion XL (WELLBUTRIN XL) 150 mg 24 hr tabletTake 3 tablets by mouth once daily.Disp: 90 tabletRfl: 0 citalopram hydrobromide (CELEXA) 10 mg tablet1 tablet once daily.Disp: Rfl: XR HAND GENERAL 3V PA/LAT/OBL RT [[id number]] Order #: [id number] FUTURE TOX SCREEN ROUT UR [SQUTOX2] Order #: [id number] FUTURE PAIN PANEL, UR QUANT [SQUQNTPP] Order #: [id number] Prescriptions as of 08/28/2018 Sig: BUPROPION XL 150 MG TAB Take 3 tablets by mouth once * CITALOPRAM 10 MG TABLET 1 tablet once daily. BROMPHENIRAMINE-PSEUDOEPHEDRI* Take 10 mL by mouth four time* ONDANSETRON 4 MG DISINTEGRATI* Take 1 tablet by mouth every * GABAPENTIN 300 MG CAPSULE Take 1 capsule by mouth twice* BROMPHENIRAMINE-PSEUDOEPHEDRI* Take 5 mL by mouth four times* QUETIAPINE ER 50 MG TABLET,EX* Take 100 mg by mouth daily at* IBUPROFEN 200 MG TABLET Take 200 mg by mouth every 6 * ACETAMINOPHEN 325 MG TABLET Take 2 tablets by mouth every* MELOXICAM 15 MG TABLET Take 1 tablet by mouth once d* Patient not taking: Reported on 08/28/2018 Problem List As Of Date 08/28/2018 Noted Resolved Migraine [G43.909] Schizoaffective disorder (HCC) [F25.9] More... 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 CITALOPRAM 10 MG TABLET 08/28/2018 Class: Med Update Si tablet once daily. Medications Discontinued During This Encounter citalopram hydrobromide (CELEXA) 10 * 08/14/2018 08/28/2018 Class: Historical Med Sig: Disc: Adjust Sig - Block E-Cancel buPROPion XL (WELLBUTRIN XL) 150 mg * 90 t* 1 06/16/2018 08/28/2018 Route: ORAL Sig: Take 3 tablets by mouth once daily. Disc: Reason for discontinue is not on file. Disposition: Return if symptoms worsen or fail to improve. Follow-up and Disposition History Recorded Letter Text [facility] [address] [facility] [id number] Controlled Substance Agreement Purpose The purpose of this agreement is to prevent misunderstandings about certain medicines you will be taking for pain management. It will help both you and your doctor to comply with laws regarding controlled pharmaceuticals. I understand that this agreement is essential to the trust and confidence necessary in a doctor/patient relationship and that my doctor undertakes to treat me based on this agreement. AGREEMENT I, Ken Griffin, understand that if I break this agreement, my doctor will stop prescribing these pain-control medicines. In this case, my doctor will taper off the medicine over a period of several days, as necessary, to avoid withdrawal symptoms. A drug-dependence treatment program may be recommended. In certain cases, you may be terminated as a patient. I will communicate fully with my doctor about the character and intensity of my pain, its effect on my daily life, and how well the medicine is helping to relieve the pain. I will not use any illegal controlled substances, including marijuana, cocaine, etc. Random urine and/or serum toxicology screens may be requested; this testing may be unannounced and occur at any time. I agree that I will submit to a blood or urine test if requested by my doctor to determine my compliance with my program of pain control medicine. I will not share, sell or trade my medication with anyone. I will not attempt to obtain any controlled substance from any other doctor, other than a covering physician. I will safeguard my pain medicine from loss or theft. Lost or stolen medicines may not be replaced. I agree that refills of my prescriptions for pain medicine will be made only at the time of an office visit or during regular office hours. No refills will be available on evenings or weekends. I authorize the doctor and my pharmacy to cooperate fully with any city, state or federal law enforcement agency, including this state's Board of Pharmacy, in the investigation of any possible misuse, sale, or other diversion of my medication. I authorize my doctor to provide a copy of this Agreement to my pharmacy. I agree to waive any applicable privilege or right of privacy or confidentiality with respect to these authorizations. I agree that I will use my medicine at a rate no greater than the prescribed rate and that use of my medicine at a greater rate may result in my being without medication for a period of time. If legal authorities have questions concerning treatment, for example, if a patient were obtaining medications at several pharmacies, all confidentiality is waived and the authorities may be given full access to the [facility] Records of narcotic administration. I agree to follow these guidelines and they have been fully explained to me. All of my questions and concerns regarding treatment have been answered. A copy of this document has been given to me. Pharmacy: Location: Phone number: Patient: Date: August 28, 2018 Ken Griffin [id number] Physician: Date: August 28, 2018 Alice Duff MD Information regarding Controlled Substance Prescriptions: Please read carefully. Strong pain medications such as Tramadol, Narcotic analgesics are helpful to control a severe pain when it is difficult to control with simple pain medications, but they can cause problems if taken for too long. The goal of treatment is to control the pain to a level where you will be able to function. The long-term use of such substances as opioids (narcotic analgesics), benzodiazepine tranquilizers, and barbiturate sedatives is controversial because of uncertainty regarding the extent to which they actually improve the lives of those receiving them in terminal gauger supervisor use. Some people receive prolonged benefit and others do not. Some may actually have an increase in pain. There is also the risk of developing addiction or causing relapse of addiction. It is important that you know the side effects of these medications including: Excessive doses suppress breathing and may be fatal. This is especially true if the person is a child. Drowsiness and impaired concentration may create danger with driving or operating machinery, especially shortly after dose increases. Some people describe lasting feelings of reduced alertness and concentration. Toxicity is much more likely if the drug is combined with tranquilizers or sedatives, so the user must never do this Constipation is most common. Stool softeners or other agents are then required. If these drugs are taken regularly during the latter months of , the child will probably be born physically dependent on them. Many deaths have occurred because of abuse of these medications, often by people other than those for whom they were prescribed, or because of combining them with other substances. Therefore, strict accountability is necessary. The following policies are agreed to by the treatment recipient. Selling or giving away this medication is against the law and may cause harm or to the person who receives it. Thus you must never give controlled substances to anyone else, even if he or she has the same symptoms as you. It is equally important that you secure your medications so that no one else can access them. Workers in the home, friends of children, and visitors can be expected to look through medicine cabinets and take drugs of abuse. Medications should not be left in sight in hotel rooms, unoccupied cars, etc. Should a child accidentally ingest one of your pills, obtain emergency medical care immediately. A good rule of thumb is not to put the medication any place you would not leave $1000 in nielsen. A small, inexpensive safe or lockable cabinet is a good idea. Because diverted / stolen opioids are causing an epidemic of deaths in the , lost or stolen medications will not be replaced. It is your responsibility to safeguard them. In addition [place] law requires certain procedures for the prescription of controlled substances which will be discussed. Encounter Status:Closed by ALICE DUFF MD on 08/28/18 TOXICOLOGY SCREEN,UR Collected: 08/28/2018 Status: F Source: [place] 12:00 PM [facility] REPOSITORY TYPE CODE TESTS RESULT OUT OF REFERENCE UNITS RANGE LAB UPCP2 Negative Negative Phencyclidin e, Urine Result Comment: Cutoff threshold at 25 ng/mL. LAB UBENZ2 Negative Benzodiazepines, Ur Negative Result Comment: Cutoff threshold at 200 ng/mL. LAB UCOC2 Negative Cocaine, Negative Urine Result Comment: Cutoff threshold at 300 ng/mL. LAB UAMPH2 Negative Amphetamines, Urine Negative Result Comment: Cutoff threshold at 1000 ng/mL. LAB UTHC2 Negative Cannabinoids, Urine Negative Result Comment: Cutoff threshold at 50 ng/mL. LAB UOPI2 Negative Opiates, Negative Urine Result Comment: Cutoff threshold at 300 ng/mL. LAB UBARB2 Negative Barbiturates, Urine Negative Result Comment: Cutoff threshold at 200 ng/mL. LAB UETOH <11 mg/dL <11 Ethanol, Urine LAB UOXYC Negative Oxycodone, Negative Urine Result Comment: Cutoff threshold at 100 ng/mL. Comment: Immunoassay screen only. Cross reactivity with other substances can occur with immunoassay screening. Detection of any drug(s) in this urine toxicology panel is presumptive only. These tests are for med ical purposes only and should not be used for compliance monitoring, legal, or forensic use. Samples should be within normal physiological conditions (e.g. pH). This assay does not include adulteration/specimen validity testing. In clinical settings, confirmatory testing is at the practitioner's discretion [1]. If clinically indicated, confirmation by high specificity, quantitative methodology, which includes adulteration/spec imen validity testing, may be requested on the same specimen through Client Services ([phone]) if contacted within 48 hours of initial testing. [1]Substance Abuse and Mental Health Services Administration (2012). Clinical Drug Testing in Primary Care Technical Assistance Publication Series 32. Department of Health and Human Services, [place], p.10. These tests were developed and their performance characteristics determined by [facility] ( [facility]). They have not been cleared or a pproved by the FDA. [facility] is regulated under CLIA as qualified to perform high complexity testing. These tests are used for clinical purposes. They should not be regarded as investigational or for research. Performed By: #### UTOX2 #### [facility] [address] [place], [place] [address] QUANT PAIN PANEL, Collected: 08/28/2018 Status: F Source: [facility] 12:00 PM [facility] REPOSITORY TYPE CODE TESTS RESULT OUT OF REFERENCE UNITS RANGE LAB UQCANN <16 ng/mL <16 Cannabinoid, Urine Result Comment: Tetrahydrocannabinol carboxylic acid (THCA) is a metabolite of pncfp-1-xqpzjlqlzfnbvxaqfxsu which is the main active component of marijuana. LAB UQBNZL <24 ng/mL Benzoylecognine, Ur <24 Result Comment: Benzoylecognine is a metabolite of cocaine. LAB UQACMR <5 ng/mL 6-Acetylmorphine, Ur <5 Result Comment: 6-CHEYANNE (6-monoacetylmorphine, also known as 6-acetylmorphine) is a unique metabolite of heroin. Presence of 6-CHEYANNE indicates use of heroin. 6-CHEYANNE is further metabolized to morphine and absence of 6-CHEYANNE does not rule out the use of heroin. LAB UQAMPH <5 ng/mL Amphetamine, High Urine 29 Result Comment: Amphetamine may arise from amphetamine containing drugs (eg. Adderall and Benzedrine) or by metabolism of methamphetamine. Clobenzorex, famprofazone, fenethylline, fenproporex, and mefenorex contain amphetamine pro-drugs which can be metabolized to amphetamine. Selegiline is metabolized to both amphetamine and methamphetamine. LAB UQMAMP <8 ng/mL Methamphetamine, Ur High 128 Result Comment: Methamphetamine may arise from methamphetamine containing drugs or metabolism. Selegiline is metabolized to both methamphetamine and amphetamine. Hkag-qqf-yhyuwbc inhalers for nasal decongestion may cause positive methamphetamine results. Methamphetamine is metabolized to amphetamine. LAB UQBUPR <20 ng/mL Buprenorphine, Ur <20 LAB UQNBUP <20 ng/mL Norbuprenorphine, Ur <20 Result Comment: Norbuprenorphine is the primary active metabolite of buprenorphine. LAB UQMTHD <16 ng/mL Methadone, Urine <16 LAB UQEDDP <6 ng/mL EDDP, Urine <6 Result Comment: EDDP is a metabolite of methadone. LAB UQTRAM <25 ng/mL Tramadol, Urine <25 LAB UQDTRM <20 ng/mL Desmethyltramadol <20 ,Ur Result Comment: Desmethyltramadol is a metabolite of tramadol. LAB UQFNTL <6 ng/mL Fentanyl, Urine <6 LAB UQNFTL <6 ng/mL Norfentanyl, Urine <6 Result Comment: Norfentanyl is a metabolite of fentanyl. LAB UQCODE <11 ng/mL Codeine, Urine <11 LAB UQMORP <10 ng/mL Morphine, Urine <10 Result Comment: Morphine is a metabolite of codeine and heroin. LAB UQDCDN <5 ng/mL Dihydrocodeine, Ur <5 LAB UQHCOD <8 ng/mL Hydrocodone, Urine <8 Result Comment: Hydrocodone is a metabolite of dihydrocodeine. LAB UQOXYC <10 ng/mL Oxycodone, Urine <10 LAB UQHMOR <5 ng/mL Hydromorphone, Ur <5 Result Comment: Hydromorphone is a metabolite of hydrocodone. LAB UQOXYM <5 ng/mL Oxymorphone, Urine <5 Result Comment: Oxymorphone is a metabolite of oxycodone. LAB UQCREA 46.8-314.5 mg/dL Creatinine, 53.4 Urine LAB UQPH 4.5-8.0 pH, Urine 7.5 LAB UQSPGR 1.002-1.030 Specific 1.011 [place],Ur LAB UQOXID <200 mg/L Oxidants, <38 Urine LAB SVNI01 <51 mg/L <50 NITRITES,URINE LAB SVCH01 <50 mg/L <10 CHROMATE,URINE LAB SVSQ01 Specimen QUALITY,URINE quality results within acceptable limits. LAB UQNOTE Note This test is for Medical use only. Result Comment: This test was developed and its performance characteristics determined by [facility] [place] ([facility]). It has not been cleared or approved by the FDA. [facility] is regulated under CLIA as qualified to perform high-complexity testing. This test is used for clinical purposes. It should not be regarded as investigational or for research. Performed By: #### UQNTPP #### [facility] [address] [place], [place] [address] EMERGENCY DEPARTMENT Observed: 08/25/2018 Status: F Source: [place] SUMMARY 12:13 AM [facility] REPOSITORY [facility] Medical Records Department [address] [place] [address] Emergency Department Summary 08/24/18 2159 MR#: [id number] Acct: [id number] Name: KEN GRIFFIN Rep #: [id number] : 1975 43 From: Octavio Sanchez MD PCP: Job Duff MD Status: DEP ER - ER Visit Summary Date of Service: 08/24/18 Chief Complaint: Fall History of Present Illness: The patient is a [address] Duff. He reports that 3 hours ago he slipped in his kitchen and twisted his left foot underneath him awkwardly. He has pain in his foot and ankle that are 10 out of 10 severity. Reports that he also hit both elbows on the floor. He has left elbow pain is 5 out of 10 severity and right elbow pain is 10 out of 10 severity. He denies any blow to the head or loss of consciousness. No neck or back pain. Physical Examination: Vitals: Stable. Afebrile. Neck: No vertebral tenderness. Full ROM without difficulty. Cleared by NEXUS criteria. Back: No vertebral tenderness. General: A AND O x 3. NAD. Cardiovascular exam: Regular rate and rhythm, no murmur, rub or gallop. Respiratory exam: Chest nontender. No crepitus. Clear to auscultation bilaterally. No wheezes or stridor. Abdominal exam: Soft, nontender, nondistended, normal bowel sounds. No pain in RUQ or LUQ specifically. No peritoneal signs. Extremity: Erythema over the right olecranon process. There is no soft tissue swelling. He has no pain with flexion, extension, pronation, or supination of his elbow. There is no pain with axial load of his arm at his wrist. Left foot shows a contusion to the distal portion of the second through fifth metatarsals. This is moderately tender to palpation. He also has mild tenderness palpation to both the medial lateral malleoli. Is a 2+ dorsalis pedis pulse and normal sensation light touch. Test Results: Left foot and ankle x-rays are negative. Emergency Department Course and Treatment: Patient was treated with naproxen. He is resting comfortably. Treatment Plan: Patient will be discharged with naproxen. Instructed to follow-up with Dr. Duff in 1 week if not improving. Return to the emergency department for any worsening symptoms. Disposition: To home in improved and stable condition. Impression: 1. Fall. 2. Left foot contusion. 3. Left ankle sprain. This note was generated with [employer] dictation software. It may contain incorrect words, spelling, and punctuation that were not noted in review of the chart prior to signing ED Disposition - Plan for ED Patient: Chief Complaint: Fall Instructions: ED Sprain Foot Prescriptions: Naproxen [Naprosyn] 500 mg PO BID #14 tablet Referrals: Job Duff MD [Primary Care Provider] - 1 Week if not improving What to do if you have Problems For any increased pain, shortness of breath, bleeding, nausea or vomiting, chest pain, or any unexpected problems, contact your Primary Care Provider. Call [facility] ([phone]) or report to the closest Emergency Room. Call 911 if necessary. 08/25/18 0013 <Electronically signed by Octavio Sanchez MD> Date Octavio Sanchez MD Cosigner Signature (If Indicated): Date CC: Job Duff MD FOOT MIN 3 VIEWS Observed: 08/24/2018 Status: F Source: [place] 9:44 PM [facility] REPOSITORY [facility] Imaging Services [address] [place] [address] Foot min 3 Views MR#: [id number] Acct: [id number] Name: KEN GRIFFIN Rep #: [id number] : 1975 M 43 From: Eusebio Ashraf MD PCP: Job Duff MD Status: REG ER Study: Foot min 3 Views Date of Exam: 08/24/18 Exam# [id number] Ordering Dr: Octavio Sanchez MD STUDY: X-RAY - LEFT FOOT CLINICAL: Male, 43 years old. Trauma TECHNIQUE: 3 view(s) of the foot. COMPARISON: None. FINDINGS: Normal talus, calcaneus, and tarsal bones. Normal visualized subtalar, talonavicular, calcaneocuboid, tarsal and tarsometatarsal articulations. Normal metatarsi. Normal metatarsophalangeal joint of the great toe. Normal tibial and fibular sesamoid bones. Normal interphalangeal joint of the great toe. Normal phalanges of the great toe. Normal second through fifth metatarsophalangeal joints. Normal interphalangeal joints and phalanges of the lesser toes. The soft tissue structures are unremarkable. RAD/Foot min 3 Views IMPRESSION: Normal x-ray examination of the foot. Electronically Signed: Eusebio Ashraf MD at 22:44 EST , Service support , CC: oJb Duff MD; Octavio Sanchez MD Direct Marketing Analyst: Signed ANKLE MIN 3 VIEWS Observed: 08/24/2018 Status: F Source: [place] 9:44 PM [facility] REPOSITORY [facility] Imaging Services [address] [place], [place] [address] [address] Ankle min 3 Views MR#: [id number] Acct: [id number] Name: KEN GRIFFIN Rep #: [id number] : 1975 M 43 From: Isaiah Sorensen MD PCP: Job Duff MD Status: REG ER Study: Ankle min 3 Views Date of Exam: 08/24/18 Exam# [id number] Ordering Dr: Octavio Sanchez MD STUDY: X-RAY - LEFT ANKLE REASON FOR EXAM: Male, 43 years old. Trauma TECHNIQUE: 3 view(s) of the ankle. COMPARISON: None. FINDINGS: Normal visualized distal tibia and fibula. Normal medial and lateral malleoli. Normal tibiotalar articulation and ankle mortise. Normal visualized talus and calcaneus. The visualized subtalar, talonavicular, calcaneocuboid and tarsal articulations are normal. Mild soft tissue swelling overlying the lateral malleolus RAD/Ankle min 3 Views IMPRESSION: Mild lateral malleolus sprain. No evidence for acute fracture Electronically Signed: Isaiah Sorensen MD at 22:46 EST , Service support , CC: Job Duff MD; Octavio Sanchez MD Direct Marketing Analyst: Signed PROGRESS Observed: 08/22/2018 Status: COMPLETED Source: [place] 2:16 PM [facility] REPOSITORY HNO ID: [id number] Author: Viola Vargas (Pa) Service: (none) Author Type: Physician Fixture Builder Type: Progress Notes Filed: 08/22/2018 2:23 PM Note Text: Subjective HPI Patient presents a chief complaint of cough congestion vomiting and diarrhea over the past 5-6 days. He states he vomited 2-3 times today and had 2-3 bouts of diarrhea today. No blood in his stool. He was seen here on August 17 and told he had a viral illness. He has almost out of the Bromfed cough suppressant. He states the cough really only started the past 3 or 4 days. No abdominal pain. No fever. His mother was ill with similar symptoms but has improved. No recent antibiotics. No recent travel. He had a negative strep when he was here 5 days ago. Review of Systems HENT: Positive for congestion and sore throat. Respiratory: Positive for cough. Gastrointestinal: Positive for diarrhea and vomiting. Negative for abdominal pain and blood in stool. All other systems reviewed and are negative. PAST MEDICAL HISTORY Diagnosis Date - Anxiety - Borderline personality disorder ([facility]) - Depression - Migraine - Orbital fracture ([facility]) 2016 left, s/p repair with 4 plates - Schizoaffective disorder ([facility]) psychiatry-counseling center - Tobacco use Current Outpatient Prescriptions: gabapentin (NEURONTIN) 300 mg capsule Take 1 capsule by mouth twice daily for 30 days. Disp: 60 capsule Rfl: 0 Utypibriphfcdjl-Bycpyhiva-ZD (BROMFED DM) 2-30-10 mg/5 mL syrup Take 5 mL by mouth four times daily as needed. Disp: 118 mL Rfl: 0 meloxicam (MOBIC) 15 mg tablet Take 1 tablet by mouth once daily. Disp: 30 tablet Rfl: 2 buPROPion XL (WELLBUTRIN XL) 150 mg 24 hr tablet Take 3 tablets by mouth once daily. Disp: 90 tablet Rfl: 1 QUEtiapine XR (SEROQUEL XR) 50 mg Tb24 Take 100 mg by mouth daily at bedtime. Disp: Rfl: ibuprofen (MOTRIN) 200 mg tablet Take 200 mg by mouth every 6 hours as needed. Disp: Rfl: acetaminophen (TYLENOL) 325 mg tablet Take 2 tablets by mouth every 6 hours as needed for Pain. Disp: Rfl: 0 Yuztmautyifqfoh-Igjydrvgo-KA (BROMFED DM) 2-30-10 mg/5 mL syrup Take 10 mL by mouth four times daily as needed. Disp: 200 mL Rfl: 0 ondansetron orally disintegrating (ZOFRAN ODT) 4 mg disintegrating tablet Take 1 tablet by mouth every 8 hours as needed. Disp: 12 tablet Rfl: 0 No current facility-administered medications for this visit. PAST SURGICAL HISTORY Procedure Laterality Date - APPENDECTOMY 1994 - FACIAL RECONSTRUCTION SURGERY HX 12/2015 FAMILY HISTORY Problem Relation Age of Onset - other (Other) Father MVA - Diabetes Mother - Cancer Mother cervical - Hypertension Mother - Hyperlipidemia Mother - Heart Mother - COPD Mother - Diabetes Brother - Diabetes Maternal Grandmother - Coronary Artery Disease Maternal Grandmother GA - Diabetes Paternal Grandmother - Diabetes Maternal Aunt - Stroke Maternal Grandfather Social History Substance Use Topics - Smoking status: Current Every Day Smoker Packs/day: 0.75 Years: 25.00 Types: Cigarettes - Smokeless tobacco: Never Used Comment: previously smoked 2 packs per day - Alcohol use No BP 132/84 Pulse 98 Temp 36.8 ?C (98.3 ?F) (Tympanic) Resp 16 Wt 83.7 kg (184 lb 9.6 oz) SpO2 99% BMI 26.49 kg/m? Objective Physical Exam Constitutional: He is oriented to person, place, and time and well-developed, well-nourished, and in no distress. HENT: Head: Normocephalic and atraumatic. Right Ear: Tympanic membrane, external ear and ear canal normal. Left Ear: Tympanic membrane, external ear and ear canal normal. Nose: Rhinorrhea present. Mouth/Throat: Uvula is midline, oropharynx is clear and moist and mucous membranes are normal. Neck: Normal range of motion. Neck supple. Cardiovascular: Normal rate, regular rhythm and normal heart sounds. Pulmonary/Chest: Effort normal and breath sounds normal. Abdominal: Soft. Bowel sounds are normal. He exhibits no distension. There is no tenderness. There is no rebound and no guarding. Lymphadenopathy: He has no cervical adenopathy. Neurological: He is alert and oriented to person, place, and time. Skin: Skin is warm and dry. Psychiatric: Affect and judgment normal. Nursing note and vitals reviewed. ASSESSMENT/PLAN: 1. Viral illness - ICD9: 079.99, ICD10: B34.9 - Discussed viral etiology and rationale for treatment. - Symptomatic treatment with prn analgesia - Supportive care with fluids and rest - Follow up in one week if symptoms persist or sooner if worsening of symptoms - Given zofran and bromfed. BRATY diet instructions. Discussed with patient concerning symptoms to go to the emergency department or follow up here. Pt agreeable with this plan. Viola Vargas PA-C CNOV Observed: 08/22/2018 Status: COMPLETED Source: [place] 12:30 PM [facility] REPOSITORY Office Visit (WSTR) KEN GRIFFIN ([id number]) 1975 M Date Time Provider Department 08/22/18 12:30 PM VIOLA VARGAS (HALIE) [facility] During your visit today, we recorded the following information about you: Temperature Pulse Respiration Blood pressure 98.3 degrees 98/minute 16/minute 132/84 Weight 83.7 kg Viola Vargas PA-C 08/22/2018 2:23 PM Signed Subjective HPI Patient presents a chief complaint of cough congestion vomiting and diarrhea over the past 5-6 days. He states he vomited 2-3 times today and had 2-3 bouts of diarrhea today. No blood in his stool. He was seen here on August 17 and told he had a viral illness. He has almost out of the Bromfed cough suppressant. He states the cough really only started the past 3 or 4 days. No abdominal pain. No fever. His mother was ill with similar symptoms but has improved. No recent antibiotics. No recent travel. He had a negative strep when he was here 5 days ago. Review of Systems HENT: Positive for congestion and sore throat. Respiratory: Positive for cough. Gastrointestinal: Positive for diarrhea and vomiting. Negative for abdominal pain and blood in stool. All other systems reviewed and are negative. PAST MEDICAL HISTORY Diagnosis Date - Anxiety - Borderline personality disorder ([facility]) - Depression - Migraine - Orbital fracture ([facility]) 2016 left, s/p repair with 4 plates - Schizoaffective disorder ([facility]) psychiatry-counseling center - Tobacco use Current Outpatient Prescriptions: gabapentin (NEURONTIN) 300 mg capsule Take 1 capsule by mouth twice daily for 30 days. Disp: 60 capsule Rfl: 0 Cpfxdyrpjyfviez-Khwhhmubn-WB (BROMFED DM) 2-30-10 mg/5 mL syrup Take 5 mL by mouth four times daily as needed. Disp: 118 mL Rfl: 0 meloxicam (MOBIC) 15 mg tablet Take 1 tablet by mouth once daily. Disp: 30 tablet Rfl: 2 buPROPion XL (WELLBUTRIN XL) 150 mg 24 hr tablet Take 3 tablets by mouth once daily. Disp: 90 tablet Rfl: 1 QUEtiapine XR (SEROQUEL XR) 50 mg Tb24 Take 100 mg by mouth daily at bedtime. Disp: Rfl: ibuprofen (MOTRIN) 200 mg tablet Take 200 mg by mouth every 6 hours as needed. Disp: Rfl: acetaminophen (TYLENOL) 325 mg tablet Take 2 tablets by mouth every 6 hours as needed for Pain. Disp: Rfl: 0 Iiodyzkruutzokz-Kjsisnodm-VT (BROMFED DM) 2-30-10 mg/5 mL syrup Take 10 mL by mouth four times daily as needed. Disp: 200 mL Rfl: 0 ondansetron orally disintegrating (ZOFRAN ODT) 4 mg disintegrating tablet Take 1 tablet by mouth every 8 hours as needed. Disp: 12 tablet Rfl: 0 No current facility-administered medications for this visit. PAST SURGICAL HISTORY Procedure Laterality Date - APPENDECTOMY 1994 - FACIAL RECONSTRUCTION SURGERY HX 12/2015 FAMILY HISTORY Problem Relation Age of Onset - other (Other) Father MVA - Diabetes Mother - Cancer Mother cervical - Hypertension Mother - Hyperlipidemia Mother - Heart Mother - COPD Mother - Diabetes Brother - Diabetes Maternal Grandmother - Coronary Artery Disease Maternal Grandmother GA - Diabetes Paternal Grandmother - Diabetes Maternal Aunt - Stroke Maternal Grandfather Social History Substance Use Topics - Smoking status: Current Every Day Smoker Packs/day: 0.75 Years: 25.00 Types: Cigarettes - Smokeless tobacco: Never Used Comment: previously smoked 2 packs per day - Alcohol use No BP 132/84 Pulse 98 Temp 36.8 ?C (98.3 ?F) (Tympanic) Resp 16 Wt 83.7 kg (184 lb 9.6 oz) SpO2 99% BMI 26.49 kg/m? Objective Physical Exam Constitutional: He is oriented to person, place, and time and well-developed, well-nourished, and in no distress. HENT: Head: Normocephalic and atraumatic. Right Ear: Tympanic membrane, external ear and ear canal normal. Left Ear: Tympanic membrane, external ear and ear canal normal. Nose: Rhinorrhea present. Mouth/Throat: Uvula is midline, oropharynx is clear and moist and mucous membranes are normal. Neck: Normal range of motion. Neck supple. Cardiovascular: Normal rate, regular rhythm and normal heart sounds. Pulmonary/Chest: Effort normal and breath sounds normal. Abdominal: Soft. Bowel sounds are normal. He exhibits no distension. There is no tenderness. There is no rebound and no guarding. Lymphadenopathy: He has no cervical adenopathy. Neurological: He is alert and oriented to person, place, and time. Skin: Skin is warm and dry. Psychiatric: Affect and judgment normal. Nursing note and vitals reviewed. ASSESSMENT/PLAN: 1. Viral illness - ICD9: 079.99, ICD10: B34.9 - Discussed viral etiology and rationale for treatment. - Symptomatic treatment with prn analgesia - Supportive care with fluids and rest - Follow up in one week if symptoms persist or sooner if worsening of symptoms - Given zofran and bromfed. BRATY diet instructions. Discussed with patient concerning symptoms to go to the emergency department or follow up here. Pt agreeable with this plan. Viola Vargas PA-C Referring Provider: SELF [[id number]] Allergies As of Date: 08/22/2018 Noted Allergy Reaction IBUPROFEN 03/09/2018 8 - GI Upset PENICILLINS 02/11/2016 2 - Rash TETRACYCLINE 02/11/2016 2 - Rash Date Reviewed: 08/22/2018 Reviewed by: Negrita Llamas LPN - Fully Assessed Reason for Visit: vomiting, diarrhea and HAYDEN [Other] Cmt: x 2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 murmur, gallop, or rubs. No ectopy. Abdomen: Normal abdominal exam, Abdomen soft, non-tender. Bowel sounds normal. No masses, organomegaly. Extremities: No deformities, edema, skin discoloration, clubbing or cyanosis. Good capillary refill. . Health Maintenance List ONE PNEUMOVAX PRIOR TO AGE 65 due on 1994 LIPID SCREEN due on 2010 INFLUENZA(1) due on 04/08/2018 DTAP,TDAP,TD(2 - Td) due on 01/19/2028 ASSESSMENT/PLAN: 1. Other migraine without status migrainosus, not intractable - ICD9: 346.80, ICD10: G43.809 (primary diagnosis) Stop propranolol, switch to topamax. Discussed risks with seroquel including FAMILY MEDICINE CHAIR depression and need for higher dose Topamax. Continue Imitrex prn. Recheck at future OV. - TOPIRAMATE 25 MG TABLET 2. Allergic contact dermatitis due to metals - ICD9: 692.83, ICD10: L23.0 Moderate potency steroid cream BID for 1-2 weeks, discussed covering button on jeans or changing jeans type to prevent rash/irritation. - TRIAMCINOLONE ACETONIDE 0.1 % TOPICAL CREAM 3. Schizoaffective disorder, unspecified type (HCC) - ICD9: 295.70, ICD10: F25.9 Continue current regimen, follow up with psychiatry as scheduled. 4. Tobacco use - ICD9: 305.1, ICD10: Z72.0 - Cessation encouraged. - Physiologic and physical aspects of tobacco addiction as well as strategies for quitting were discussed. - Counseling was given focusing on the harmful effects of this addiction especially given the patient's medical condition(s) which will be worsened because of the chemicals in tobacco. 5. Borderline personality disorder (HCC) - ICD9: 301.83, ICD10: F60.3 Continue current regimen, follow up with psychiatry as scheduled. 6. Anxiety - ICD9: 300.00, ICD10: F41.9 Continue current regimen, follow up with psychiatry as scheduled. - BUPROPION XL 150 MG TAB - CBC - COMP METABOLIC PANEL - TSH BLD 7. Depression, unspecified depression type - ICD9: 311, ICD10: F32.9 Continue current regimen, follow up with psychiatry as scheduled. - BUPROPION XL 150 MG TAB 8. Need for vaccination - ICD9: V05.9, ICD10: Z23 - PNEUMOCOCCAL IMMUNIZATION PPSV 23 I spent 40 minutes in the visit, with more than 50% of the total [id number] time of the visit in counseling / coordination of care. Alice Duff MD Referring Provider: EVELYN JAFFE ([facility]) [[id number]] Allergies As of Date: 03/09/2018 Noted Allergy Reaction IBUPROFEN 03/09/2018 8 - GI Upset PENICILLINS 02/11/2016 2 - Rash TETRACYCLINE 02/11/2016 2 - Rash Date Reviewed: 03/09/2018 Reviewed by: Cornelius Fernandez Ma - Fully Assessed Reason for Visit: Establish Care [42] Cmt: rash on abdomen x 2 weeks Reason For Visit History Recorded Primary Visit Diagnosis:Other migraine without status migrainosus, not intractable [G43.809] Other Visit Diagnoses:Allergic contact dermatitis due to metals [L23.0] Schizoaffective disorder, unspecified type (HCC) [F25.9] Tobacco use [Z72.0] Borderline personality disorder (HCC) [F60.3] Anxiety [F41.9] Depression, unspecified depression type [F32.9] Need for vaccination [Z23] Order(s):buPROPion XL (WELLBUTRIN XL) 150 mg 24 hr tabletTake 3 tablets by mouth once daily.Disp: 90 tabletRfl: 0 PNEUMOCOCCAL IMMUNIZATION PPSV 23 [[id number]] Order #: [id number] topiramate (TOPAMAX) 25 mg tabletTake 1 tablet by mouth daily at bedtime.Disp: 30 tabletRfl: 0 triamcinolone acetonide (KENALOG) 0.1 % creamApply 1 application to affected area twice daily for 14 days. Apply sparingly to area for rash/itching.Disp: 1 TubeRfl: 1 CBC [SQCBC] Order #: [id number] FUTURE COMP METABOLIC PANEL [SQCMP] Order #: [id number] FUTURE TSH BLD [SQTSH] Order #: [id number] FUTURE Prescriptions as of 03/09/2018 Sig: BUPROPION XL 150 MG TAB Take 3 tablets by mouth once * SUMATRIPTAN 50 MG TABLET Take at onset of headache, if* QUETIAPINE ER 50 MG TABLET,EX* Take by mouth daily at bedtim* ACETAMINOPHEN 325 MG TABLET Take 2 tablets by mouth every* TOPIRAMATE 25 MG TABLET Take 1 tablet by mouth daily * TRIAMCINOLONE ACETONIDE 0.1 %* Apply 1 application to affect* IBUPROFEN 200 MG TABLET Take 200 mg by mouth every 6 * Problem List As Of Date 03/09/2018 Noted Resolved Migraine [G43.909] Schizoaffective disorder (HCC) [F25.9] More... Tobacco use [Z72.0] Borderline personality disorder (HCC) [F60.3] Anxiety [F41.9] Depression [F32.9] Prescriptions ordered this encounter Disp Refills Start End BUPROPION XL 150 MG TAB 90 t* 0 03/09/2018 Route: ORAL Sig: Take 3 tablets by mouth once daily. TOPIRAMATE 25 MG TABLET 30 t* 0 03/09/2018 Route: ORAL Sig: Take 1 tablet by mouth daily at bedtime. TRIAMCINOLONE ACETONIDE 0.1 % TOPICA* 1 Tu* 1 03/09/2018 03/23/2018 Route: TOPICAL Sig: Apply 1 application to affected area twice daily for 14 days. Apply sparingly to area for rash/itching. Medications Discontinued During This Encounter topiramate (TOPAMAX) 50 mg tablet 30 t* 1 02/20/2016 03/09/2018 Route: ORAL Sig: Take 1 tablet by mouth daily at bedtime. Patient not taking: Reported on 03/09/2018 Disc: Reason for discontinue is not on file. propranolol ER (INDERAL LA) 80 mg 24* 30 c* 2 03/01/2018 03/09/2018 Route: ORAL Sig: Take 1 capsule by mouth once daily. Disc: Reason for discontinue is not on file. buPROPion XL (WELLBUTRIN XL) 150 mg * 03/09/2018 Class: Historical Med Route: ORAL Sig: Take 450 mg by mouth once daily. Disc: Reason for discontinue is not on file. Disposition: Return in about 3 months (around 06/09/2018). Follow-up and Disposition History Recorded Questionnaire: PHQ-9 THE LAST 2 WEEKS, HAVE YOU BEEN BOTHERED BY ANY OF THE FOLLOWING? -> - Little interest or pleasure in doing things -> 3 NEARLY EVERY DAY Feeling down, depressed, or hopeless -> 2 Trouble falling or staying asleep, or sleeping too much - > 0 Feeling tired or having little energy -> 0 Poor appetite or overeating -> 1 Feeling bad yourself-you are a failure or have let yourself or others -> 2 Trouble concentrating, like reading the paper or watching TV -> 2 Moving/speaking slowly (others notice) OR being more fidgety/restless -> 3 Thoughts that you would be better off or of hurting yourself -> 0 PHQ TOTAL SCORE = -> 13 PHQ problems effect on difficulty of work, home, and social activity: -> 1 - NOT DIFFICULT AT ALL Questionnaire: HELLEN-7 ANXIETY SCALE Feeling nervous, anxious, or on edge -> 3 Nearly every day Not being able to stop or control worrying -> 0 Not at all sure Worrying too much about different things -> 0 Not at all sure Trouble relaxing -> 2 Over half the days Being so restless that it's hard to sit still -> 3 Nearly every day Being easily annoyed or irritable -> 2 Over half the days Feeling afraid as if something awful might happen -> 2 Over half the days HELLEN-7 Anxiety Score -> 12 If you checked off any problems, how difficult have these problems made it for you to do your work, take care of things at home, or get along with other people? -> Not difficult at all Encounter Status:Closed by ALICE DUFF MD on 03/09/18 PROGRESS Observed: 03/01/2018 Status: COMPLETED Source: [place] 9:12 AM [facility] REPOSITORY HNO ID: [id number] Author: Evelyn Adame) Podlogar Service: (none) Author Type: Nurse Practitioner Type: Progress Notes Filed: 03/01/2018 11:26 AM Note Text: 03/01/2018 Patient presents with: Physical: states gettin bad headaches has history of surgery on lft orbital bone HP/CC: Ken Griffin is a 42 year old male who presents with complaint of a headache with chronic onset. The pain is located at unilateral left, and is described as: aching, dull and throbbing, moderate in intensity; radiation: orbital . Associated symptoms include: nausea and photophobia. Contributory PMHx: Prior headaches: yes Migraine history: yes HTN: no DM: no temporal arthritis: no URI: no Fever: no Chills: no Travel history (encephalitis): no Injury/Trauma: No Caffeine Intake: Yes Alcohol Intake: No. Auras: yes white dots before eyes Reports headaches started after having surgery on zygomatic fracture in 2016. Had surgery with 4 plates placed. Denies past treatments. Positive for hx of blurry double vision and left facial numbness and tingling since surgery for zygomatic fracture. Treatment: Treatments attempted include: minor analgesics and anti-inflammatory drugs. Medication attempted include: acetaminophen and ibuprofen. Taking OTC meds (Advil, Motrin, Aleve, ibuprofen, Tylenol): Yes If so, how often: twice per day(s) Do they help: No Taking prescription meds (Imitrex, Zomig, Maxalt, Midrin): No PAST MEDICAL HISTORY Diagnosis Date - Depression - Facial fracture (HCC) ALLERGIES Penicillins; Tetracycline MEDICATIONS Current Outpatient Prescriptions: QUEtiapine XR (SEROQUEL XR) 50 mg Tb24 Take by mouth daily at bedtime. buPROPion XL (WELLBUTRIN XL) 150 mg 24 hr tablet Take 450 mg by mouth once daily. ibuprofen (MOTRIN) 200 mg tablet Take 200 mg by mouth every 6 hours as needed. acetaminophen (TYLENOL) 325 mg tablet Take 2 tablets by mouth every 6 hours as needed for Pain. topiramate (TOPAMAX) 50 mg tablet Take 1 tablet by mouth daily at bedtime. No current facility-administered medications for this visit. Medications and allergies reviewed by this provider. SOCIAL HISTORY Social History Marital status: Spouse name: Years of education: Number of children: Social History Main Topics Smoking status: Current Every Day Smoker Packs/day: 0.50 Years: 25.00 Smokeless tobacco: Never Used Alcohol use: No Drug use: No Other Topics Concern Caffeine Concern Not Asked Comment:2 beverages daily Exercise Not Asked Comment:Walking 2 miles daily REVIEW OF SYSTEMS See HPI PHYSICAL EXAMINATION: BP 90/60 (BP Site: Left Arm, BP Position: Sitting, BP Cuff Size: Regular Adult) Pulse 68 Resp 18 Ht 175.3 cm (5' 9) Wt 84.4 kg (186 lb 1.9 oz) BMI 27.49 kg/m? General appearance: Well appearing, alert, in no acute distress, well-hydrated, well nourished., NC/AT. Skin: Skin color, texture, turgor normal, no suspicious rashes or lesions Head: Normocephalic, no masses, lesions, tenderness or abnormalities; TMJ pain: no Eyes: Anicteric sclera. Pupils are equally round and reactive to light. Extraocular movements are intact. Ears: External ears normal, canals clear, TM's normal Nose/Sinuses: Nares normal, septum midline, mucosa normal, no drainage or sinus tenderness Oropharynx: Lips, mucosa, and tongue normal, teeth and gums normal, oropharynx normal Neck: Supple, no adenopathy; thyroid symmetric, normal size, no bruits Lungs: Lungs clear to auscultation. No wheezing, rhonchi, rales Heart: RRR without murmur, gallop, or rubs. No ectopy Extremities: No deformities, edema, skin discoloration, clubbing or cyanosis. Good capillary refill. Neuro: Gait normal. Reflexes normal and symmetric. Sensation grossly intact., Negative findings: speech normal, mental status intact, cranial nerves 2-12 intact, gait, including heel, toe, and tandem walking normal, Romberg negative, muscle tone normal, muscle strength normal, rapid alternating movements normal, finger to nose normal, reflexes normal and symmetric, plantar response downgoing bilaterally, Visual roberto: Normal., Oriented X 3, CN II-XII intact, DTR 2+ upper and lower ext's, MS 5/5 upper and lower ext's, good finger to nose coordination, no motor or sensory deficit, speech intact, gait intact, memory intact, A+Ox3 in time, place and person. Visual roberto intact. ASSESSMENT/PLAN: 1. Migraine with aura, not intractable, without status migrainosus - ICD9: 346.00, ICD10: G43.109 (primary diagnosis) - no red flag exam findings - red flag symptoms discussed, verbalizes understanding - inderal LA 80 mg at night- UpToDate handout given on medication, as well as discussion on common side effects - [id number] mg at onset of migraine, repeat in 2 hours if needed-UpToDate handout given on medication, as well as discussion on common side effects - asked to keep migraine diary- provided to patient - common triggers for migraines discussed - follow-up in 1 month, sooner if needed, to ER with red flag exam findings 2. Screening for cholesterol level - ICD9: V77.91, ICD10: Z13.220 - LIPID PANEL BASIC Evelyn Podlogar, GUEST SERVICE HOST.POULTRY FIELD SERVICE TECHNICIAN Prescription instructions reviewed with patient as applicable. Patient advised if symptoms do not improve or if symptoms worsen sooner, to contact their primary care physician. Potential red flag symptoms discussed with the patient. Reviewed appropriate action plan to take if red flag symptoms occur. Patient agreeable to treatment plan. and pilar FAUST Observed: 03/01/2018 Status: COMPLETED Source: [place] 9:00 AM [facility] REPOSITORY [facility] KEN GRIFFIN ([id number]) 1975 M Date Time Provider Department 03/01/18 9:00 AM EVELYN JAFFE CNP During your visit today, we recorded the following information about you: Pulse Respiration Blood pressure Weight 68/minute 18/minute 90/60 84.4 kg Height 1.753 m Evelyn Jaffe APRN.CNP 03/01/2018 11:26 AM Signed 03/01/2018 Patient presents with: Physical: states gettin bad headaches has history of surgery on lft orbital bone HP/CC: Ken Griffin is a 42 year old male who presents with complaint of a headache with chronic onset. The pain is located at unilateral left, and is described as: aching, dull and throbbing, moderate in intensity; radiation: orbital . Associated symptoms include: nausea and photophobia. Contributory PMHx: Prior headaches: yes Migraine history: yes HTN: no DM: no temporal arthritis: no URI: no Fever: no Chills: no Travel history (encephalitis): no Injury/Trauma: No Caffeine Intake: Yes Alcohol Intake: No. Auras: yes white dots before eyes Reports headaches started after having surgery on zygomatic fracture in 2016. Had surgery with 4 plates placed. Denies past treatments. Positive for hx of blurry double vision and left facial numbness and tingling since surgery for zygomatic fracture. Treatment: Treatments attempted include: minor analgesics and anti-inflammatory drugs. Medication attempted include: acetaminophen and ibuprofen. Taking OTC meds (Advil, Motrin, Aleve, ibuprofen, Tylenol): Yes If so, how often: twice per day(s) Do they help: No Taking prescription meds (Imitrex, Zomig, Maxalt, Midrin): No PAST MEDICAL HISTORY Diagnosis Date - Depression - Facial fracture (HCC) ALLERGIES Penicillins; Tetracycline MEDICATIONS Current Outpatient Prescriptions: QUEtiapine XR (SEROQUEL XR) 50 mg Tb24 Take by mouth daily at bedtime. buPROPion XL (WELLBUTRIN XL) 150 mg 24 hr tablet Take 450 mg by mouth once daily. ibuprofen (MOTRIN) 200 mg tablet Take 200 mg by mouth every 6 hours as needed. acetaminophen (TYLENOL) 325 mg tablet Take 2 tablets by mouth every 6 hours as needed for Pain. topiramate (TOPAMAX) 50 mg tablet Take 1 tablet by mouth daily at bedtime. No current facility-administered medications for this visit. Medications and allergies reviewed by this provider. SOCIAL HISTORY Social History Marital status: Spouse name: Years of education: Number of children: Social History Main Topics Smoking status: Current Every Day Smoker Packs/day: 0.50 Years: 25.00 Smokeless tobacco: Never Used Alcohol use: No Drug use: No Other Topics Concern Caffeine Concern Not Asked Comment:2 beverages daily Exercise Not Asked Comment:Walking 2 miles daily REVIEW OF SYSTEMS See HPI PHYSICAL EXAMINATION: BP 90/60 (BP Site: Left Arm, BP Position: Sitting, BP Cuff Size: Regular Adult) Pulse 68 Resp 18 Ht 175.3 cm (5' 9) Wt 84.4 kg (186 lb 1.9 oz) BMI 27.49 kg/m? General appearance: Well appearing, alert, in no acute distress, well-hydrated, well nourished., NC/AT. Skin: Skin color, texture, turgor normal, no suspicious rashes or lesions Head: Normocephalic, no masses, lesions, tenderness or abnormalities; TMJ pain: no Eyes: Anicteric sclera. Pupils are equally round and reactive to light. Extraocular movements are intact. Ears: External ears normal, canals clear, TM's normal Nose/Sinuses: Nares normal, septum midline, mucosa normal, no drainage or sinus tenderness Oropharynx: Lips, mucosa, and tongue normal, teeth and gums normal, oropharynx normal Neck: Supple, no adenopathy; thyroid symmetric, normal size, no bruits Lungs: Lungs clear to auscultation. No wheezing, rhonchi, rales Heart: RRR without murmur, gallop, or rubs. No ectopy Extremities: No deformities, edema, skin discoloration, clubbing or cyanosis. Good capillary refill. Neuro: Gait normal. Reflexes normal and symmetric. Sensation grossly intact., Negative findings: speech normal, mental status intact, cranial nerves 2-12 intact, gait, including heel, toe, and tandem walking normal, Romberg negative, muscle tone normal, muscle strength normal, rapid alternating movements normal, finger to nose normal, reflexes normal and symmetric, plantar response downgoing bilaterally, Visual roberto: Normal., Oriented X 3, CN II-XII intact, DTR 2+ upper and lower ext's, MS 5/5 upper and lower ext's, good finger to nose coordination, no motor or sensory deficit, speech intact, gait intact, memory intact, A+Ox3 in time, place and person. Visual roberto intact. ASSESSMENT/PLAN: 1. Migraine with aura, not intractable, without status migrainosus - ICD9: 346.00, ICD10: G43.109 (primary diagnosis) - no red flag exam findings - red flag symptoms discussed, verbalizes understanding - inderal LA 80 mg at night- UpToDate handout given on medication, as well as discussion on common side effects - [id number] mg at onset of migraine, repeat in 2 hours if needed-UpToDate handout given on medication, as well as discussion on common side effects - asked to keep migraine diary- provided to patient - common triggers for migraines discussed - follow-up in 1 month, sooner if needed, to ER with red flag exam findings 2. Screening for cholesterol level - ICD9: V77.91, ICD10: Z13.220 - LIPID PANEL BASIC Evelyn Podlogar, GUEST SERVICE HOST.POULTRY FIELD SERVICE TECHNICIAN Prescription instructions reviewed with patient as applicable. Patient advised if symptoms do not improve or if symptoms worsen sooner, to contact their primary care physician. Potential red flag symptoms discussed with the patient. Reviewed appropriate action plan to take if red flag symptoms occur. Patient agreeable to treatment plan. and pilar Hendersonar, GUEST SERVICE HOST.POULTRY FIELD SERVICE TECHNICIAN 03/01/2018 9:40 AM Signed If you develop a sudden onset headache, weakness, numbness, tingling to extremities, slurred speech, or confusion go to hospital, or headache that will not go away Referring Provider: SELF [[id number]] Allergies As of Date: 03/01/2018 Noted Allergy Reaction PENICILLINS 02/11/2016 2 - Rash TETRACYCLINE 02/11/2016 2 - Rash Date Reviewed: 03/01/2018 Reviewed by: Oneida Mason LPN - Fully Assessed Reason for Visit: Physical [83] Cmt: states gettin bad headaches has history of surgery on lft orbital bone Primary Visit Diagnosis:Migraine with aura, not intractable, without status migrainosus [G43.109] Other Visit Diagnosis:Screening for cholesterol level [Z13.220] Order(s):LIPID PANEL BASIC [SQLIPB] Order #: [id number] FUTURE propranolol ER (INDERAL LA) 80 mg 24 hr capsuleTake 1 capsule by mouth once daily.Disp: 30 capsuleRfl: 2 SUMAtriptan (IMITREX) 50 mg tabletTake at onset of headache, if no relief within 2 hours may repeatDisp: 9 tabletRfl: 1 Prescriptions as of 03/01/2018 Sig: QUETIAPINE ER 50 MG TABLET,EX* Take by mouth daily at bedtim* BUPROPION XL 150 MG TAB Take 450 mg by mouth once kranthi* IBUPROFEN 200 MG TABLET Take 200 mg by mouth every 6 * ACETAMINOPHEN 325 MG TABLET Take 2 tablets by mouth every* TOPIRAMATE 50 MG TABLET Take 1 tablet by mouth daily * PROPRANOLOL ER 80 MG CAPSULE,* Take 1 capsule by mouth once * SUMATRIPTAN 50 MG TABLET Take at onset of headache, if* Problem List As Of Date: 03/01/2018 (None) Other instructions from your clinician: If you develop a sudden onset headache, weakness, numbness, tingling to extremities, slurred speech, or confusion go to hospital, or headache that will not go away Prescriptions ordered this encounter Disp Refills Start End PROPRANOLOL ER 80 MG CAPSULE,24 HR,E* 30 c* 2 03/01/2018 Route: ORAL Sig: Take 1 capsule by mouth once daily. SUMATRIPTAN 50 MG TABLET 9 ta* 1 03/01/2018 Sig: Take at onset of headache, if no relief within 2 hours may repeat Medications Discontinued During This Encounter Omeprazole (PRILOSEC) 40 mg capsule 30 c* 2 02/20/2016 03/01/2018 Route: ORAL Sig: Take 1 capsule by mouth once daily. Disc: Discontinued by Patient FLUoxetine (PROZAC) 20 mg capsule 03/01/2018 Class: Historical Med Route: ORAL Sig: Take 20 mg by mouth once daily. Disc: Discontinued by Patient Follow-up and Disposition History Recorded Encounter Status:Closed by TRAELOGEVELYN ABARCA CNP on 03/01/18 PROGRESS Observed: 01/18/2018 Status: COMPLETED Source: [place] 3:24 PM [facility] [place] REPOSITORY HNO ID: [id number] Author: Mario Hart Service: (none) Author Type: Physician Fixture Builder Type: Progress Notes Filed: 01/18/2018 3:27 PM Note Text: 01/18/2018 Patient presents with: Laceration: Today cut on right hand. Needing tetanus shot SUBJECTIVE: This is a 42 year old that is here today for Complaint(s) of cut on palm of right hand x today. States he cut it on a metal car part at work. Due for tetanus. Bleeding controlled. Denies known FB. No weakness in hand. PAST MEDICAL HISTORY Diagnosis Date - Depression - Facial fracture (HCC) ALLERGIES Penicillins; Tetracycline MEDICATIONS Current Outpatient Prescriptions: QUEtiapine XR (SEROQUEL XR) 50 mg Tb24 Take by mouth daily at bedtime. buPROPion XL (WELLBUTRIN XL) 150 mg 24 hr tablet Take 450 mg by mouth once daily. ibuprofen (MOTRIN) 200 mg tablet Take 200 mg by mouth every 6 hours as needed. acetaminophen (TYLENOL) 325 mg tablet Take 2 tablets by mouth every 6 hours as needed for Pain. topiramate (TOPAMAX) 50 mg tablet Take 1 tablet by mouth daily at bedtime. (Patient not taking: Reported on 01/18/2018 ) Omeprazole (PRILOSEC) 40 mg capsule Take 1 capsule by mouth once daily. (Patient not taking: Reported on 01/18/2018 ) FLUoxetine (PROZAC) 20 mg capsule Take 20 mg by mouth once daily. No current facility-administered medications for this visit. SOCIAL HISTORY Social History Marital status: Spouse name: Years of education: Number of children: Social History Main Topics Smoking status: Current Every Day Smoker Packs/day: 0.50 Years: 25.00 Smokeless tobacco: Never Used Alcohol use: No Drug use: No Other Topics Concern Caffeine Concern Not Asked Comment:2 beverages daily Exercise Not Asked Comment:Walking 2 miles daily REVIEW OF SYSTEMS All other reviewed and negative other than HPI. OBJECTIVE: BP 118/68 Pulse 102 Temp 36.5 ?C (97.7 ?F) Resp 16 Wt 86.6 kg (191 lb) APPEARANCE Well appearing, alert, in no acute distress, well-hydrated, well nourished. EXTREMITIES right hand with normal ROM digits. + approximately 1.5 cm very superficial flap laceration on right hypothenar eminence. Bleeding well controlled. Wound cleansed and all visible foreign material was removed. wound edges reapproximated with 3 steri strips. ASSESSMENT/PLAN: 1. Laceration of right hand without foreign body, initial encounter - ICD9: 882.0, ICD10: S61.411A (primary diagnosis) 3 steri strip used to reapproximate wound. Reviewed wound care instructions Reviewed red flags and when to seek care sooner. - TDAP VACCINE AGE 7+ IM 2. Need for vaccination - ICD9: V05.9, ICD10: Z23 - TDAP VACCINE AGE 7+ IM The patient indicates understanding of these issues and agrees with the plan. Mario Hart PA-C 01/18/2018 CNOV Observed: 01/18/2018 Status: COMPLETED Source: [place] 1:45 PM [facility] REPOSITORY Office Visit (WSTR) KEN GRIFFIN ([id number]) 1975 M Date Time Provider Department 01/18/18 1:45 PM MARIO HART) [facility] During your visit today, we recorded the following information about you: Temperature Pulse Respiration Blood pressure 97.7 degrees 102/minute 16/minute 118/68 Weight 86.6 kg Mario Hart PA-C 01/18/2018 2:30 PM Signed WOUND CARE GENERAL INFORMATION: A wound is a break in the skin. There are several types of wounds. Abrasions occur when the outer layer of the skin is rubbed or scraped off. Lacerations are cuts in the skin. Puncture wounds are holes that are made by round, sharp objects such as needles or nails. It may have been necessary to close the wound with stitches (sutures) to speed healing and to prevent infection. Using stitches also will decrease the amount of scarring. INSTRUCTIONS: 1. Keep the bandage clean and dry. If it gets wet and you need to change it, unwrap slowly and carefully. If it sticks and starts to hurt, use water to loosen it gently. Pat the area dry with a clean towel before putting on another bandage. You may use antibiotic ointment. 2. If possible, keep the wound raised for 24-48 hours to decrease pain and swelling and help healing. 3. Leave the dressing on for 24 Hours. 4. Clean the wound 3 to 4 times a day: Use soap and water to clean your wound gently. OR Use a cotton tipped swab dipped in a mixture of half water and half hydrogen peroxide. For mouth and lip wounds, rinse your mouth after meals and at bedtime with ? strength hydrogen peroxide or antiseptic mouthwash and then spit it out. Do not swallow the mixture. CONTACT YOUR DOCTOR OR RETURN TO THE OFFICE IF: 1. You have a temperature over 100.4 F (38 C). 2. You have signs of infection such as increasing pain or soreness, swelling, redness, pus, a foul smell, or red streaks coming from the injured site. 3. You have numbness or swelling below the wound, or you can't move the joint below. Mario Hart PA-C 01/18/2018 3:27 PM Signed 01/18/2018 Patient presents with: Laceration: Today cut on right hand. Needing tetanus shot SUBJECTIVE: This is a 42 year old that is here today for Complaint(s) of cut on palm of right hand x today. States he cut it on a metal car part at work. Due for tetanus. Bleeding controlled. Denies known FB. No weakness in hand. PAST MEDICAL HISTORY Diagnosis Date - Depression - Facial fracture (HCC) ALLERGIES Penicillins; Tetracycline MEDICATIONS Current Outpatient Prescriptions: QUEtiapine XR (SEROQUEL XR) 50 mg Tb24 Take by mouth daily at bedtime. buPROPion XL (WELLBUTRIN XL) 150 mg 24 hr tablet Take 450 mg by mouth once daily. ibuprofen (MOTRIN) 200 mg tablet Take 200 mg by mouth every 6 hours as needed. acetaminophen (TYLENOL) 325 mg tablet Take 2 tablets by mouth every 6 hours as needed for Pain. topiramate (TOPAMAX) 50 mg tablet Take 1 tablet by mouth daily at bedtime. (Patient not taking: Reported on 01/18/2018 ) Omeprazole (PRILOSEC) 40 mg capsule Take 1 capsule by mouth once daily. (Patient not taking: Reported on 01/18/2018 ) FLUoxetine (PROZAC) 20 mg capsule Take 20 mg by mouth once daily. No current facility-administered medications for this visit. SOCIAL HISTORY Social History Marital status: Spouse name: Years of education: Number of children: Social History Main Topics Smoking status: Current Every Day Smoker Packs/day: 0.50 Years: 25.00 Smokeless tobacco: Never Used Alcohol use: No Drug use: No Other Topics Concern Caffeine Concern Not Asked Comment:2 beverages daily Exercise Not Asked Comment:Walking 2 miles daily REVIEW OF SYSTEMS All other reviewed and negative other than HPI. OBJECTIVE: BP 118/68 Pulse 102 Temp 36.5 ?C (97.7 ?F) Resp 16 Wt 86.6 kg (191 lb) APPEARANCE Well appearing, alert, in no acute distress, well- hydrated, well nourished. EXTREMITIES right hand with normal ROM digits. + approximately 1.5 cm very superficial flap laceration on right hypothenar eminence. Bleeding well controlled. Wound cleansed and all visible foreign material was removed. wound edges reapproximated with 3 steri strips. ASSESSMENT/PLAN: 1. Laceration of right hand without foreign body, initial encounter - ICD9: 882.0, ICD10: S61.411A (primary diagnosis) 3 steri strip used to reapproximate wound. Reviewed wound care instructions Reviewed red flags and when to seek care sooner. - TDAP VACCINE AGE 7+ IM 2. Need for vaccination - ICD9: V05.9, ICD10: Z23 - TDAP VACCINE AGE 7+ IM The patient indicates understanding of these issues and agrees with the plan. Mario Hart PA-C 01/18/2018 Referring Provider: SELF [200] Allergies As of Date: 01/18/2018 Noted Allergy Reaction PENICILLINS 02/11/2016 2 - Rash TETRACYCLINE 02/11/2016 2 - Rash Date Reviewed: 01/18/2018 Reviewed by: Tiffany Godoy LPN - Fully Assessed Reason for Visit: Laceration [1747] Cmt: Today cut on right hand. Needing tetanus shot Primary Visit Diagnosis:Laceration of right hand without foreign body, initial encounter [S61.411A] Other Visit Diagnosis:Need for vaccination [Z23] Order(s):TDAP VACCINE AGE 7+ IM [[id number]] Order #: [id number] Prescriptions as of 01/18/2018 Sig: QUETIAPINE ER 50 MG TABLET,EX* Take by mouth daily at bedtim* BUPROPION XL 150 MG TAB Take 450 mg by mouth once kranthi* IBUPROFEN 200 MG TABLET Take 200 mg by mouth every 6 * ACETAMINOPHEN 325 MG TABLET Take 2 tablets by mouth every* TOPIRAMATE 50 MG TABLET Take 1 tablet by mouth daily * Patient not taking: Reported on 01/18/2018 OMEPRAZOLE 40 MG CAPSULE,DONNA* Take 1 capsule by mouth once * Patient not taking: Reported on 01/18/2018 FLUOXETINE 20 MG CAPSULE Take 20 mg by mouth once evan* Problem List As Of Date: 01/18/2018 (None) Other instructions from your clinician: WOUND CARE GENERAL INFORMATION: A wound is a break in the skin. There are several types of wounds. Abrasions occur when the outer layer of the skin is rubbed or scraped off. Lacerations are cuts in the skin. Puncture wounds are holes that are made by round, sharp objects such as needles or nails. It may have been necessary to close the wound with stitches (sutures) to speed healing and to prevent infection. Using stitches also will decrease the amount of scarring. INSTRUCTIONS: 1. Keep the bandage clean and dry. If it gets wet and you need to change it, unwrap slowly and carefully. If it sticks and starts to hurt, use water to loosen it gently. Pat the area dry with a clean towel before putting on another bandage. You may use antibiotic ointment. 2. If possible, keep the wound raised for 24-48 hours to decrease pain and swelling and help healing. 3. Leave the dressing on for 24 Hours. 4. Clean the wound 3 to 4 times a day: Use soap and water to clean your wound gently. OR Use a cotton tipped swab dipped in a mixture of half water and half hydrogen peroxide. For mouth and lip wounds, rinse your mouth after meals and at bedtime with ? strength hydrogen peroxide or antiseptic mouthwash and then spit it out. Do not swallow the mixture. CONTACT YOUR DOCTOR OR RETURN TO THE OFFICE IF: 1. You have a temperature over 100.4 F (38 C). 2. You have signs of infection such as increasing pain or soreness, swelling, redness, pus, a foul smell, or red streaks coming from the injured site. 3. You have numbness or swelling below the wound, or you can't move the joint below. Encounter Status:Closed by MARIO HATR PA-C on 01/18/18 CMP Collected: 12/01/2017 Status: F Source: [facility] 7:55 AM [facility] [place] REPOSITORY TYPE CODE TESTS RESULT OUT OF RANGE REFERENCE UNITS LAB L500.72160 136-145 MMOL/L Normal NA 142 LAB L500.09753 3.5-5.1 MMOL/L Normal K 4.1 LAB L500.68759 98-107 MMOL/L Normal CL 107 LAB L500.96718 21-32 MMOL/L Normal CO2 31 LAB L500.78373 5-16 MMOL/L Low AGAP 4 LAB L500.29174 70-100 MG/DL High GLU 105 Result Comment: 70-100- Normal Fasting; 100-125 Impaired Fasting; greater than 126 on more than one result- Diabetes. ADA guidelines. Results may be falsely elevated after the administration of Sulfapyridine. Results may be falsely depressed after the administration of Sulfasalazine. LAB L500.15316 7-26 MG/DL Normal BUN 14 LAB L500.00597 0.670-1.170 MG/DL Normal CREAT 0.856 Result Comment: Patients receiving either N-Acetylcysteine (NAC) or Metamizole prior to venipuncture, may have falsely depressed results. LAB L500.83015 15-24 Normal BUN/CREA 16 LAB L500.91723 6.0-8.5 GM/DL Normal TP 7.8 LAB L500.14707 3.2-5.0 GM/DL Normal ALBUMIN 4.2 LAB L500.10633 2.2-4.2 GM/DL Normal GLOBULIN 3.6 LAB L500.14745 0.8-2.0 Normal A/G RATIO 1.2 LAB L500.50382 8.5-10.1 MG/DL Normal CALCIUM TOTAL 9.3 LAB L500.30763 0.2-1.0 MG/DL High BILI TOTAL 1.2 LAB L500.13489 8-34 U/L Normal SGOT (AST) 11 Result Comment: RESULTS MAY BE FALSELY DEPRESSED AFTER THE ADMINISTRATION OF SULFASALAZINE AND/OR SULFAPYRIDINE. LAB L500.04019 13-61 IU/L Normal SGPT (ALT) 24 Result Comment: RESULTS MAY BE FALSELY DEPRESSED AFTER THE ADMINISTRATION OF SULFASALAZINE AND/OR SULFAPYRIDINE. LAB L500.61696 45-117 U/L Low ALK PHOS 34 Performed By: #### L500.77997, L500.32776, L500.58762, L500.41378, L500.53313, L500.58003, L550.56812, L550.04096 #### [facility] [address] [place] [address] GFR EST Collected: 12/01/2017 Status: F Source: [facility] 7:55 AM [facility] REPOSITORY TYPE CODE TESTS RESULT OUT OF RANGE REFERENCE UNITS LAB L500.66528 ML/MIN Normal IF non-AFR Greater than AMER 60 LAB L500.88394 ML/MIN Normal IF Greater than AMER 60 Performed By: #### L500.05359, L500.02646, L500.61914, L500.07062, L500.67482, L500.89743, L550.46755, L550.38012 #### [facility] [address] [place] [address] LIPID Collected: 12/01/2017 Status: F Source: [facility] 7:55 AM [facility] REPOSITORY TYPE CODE TESTS RESULT OUT OF RANGE REFERENCE UNITS LAB L500.32872 30-149 MG/DL Normal TRIG 123 Result Comment: Patients receiving either N-Acetylcysteine (NAC) or Metamizole prior to venipuncture, may have falsely depressed results. LAB L500.78382 0-199 MG/DL High CHOL 211 LAB L500.04897 GREATER TN 40 MG/DL Normal HDL DIRECT 51 Result Comment: Patients receiving Metamizole prior to venipuncture, may have falsely depressed results. LAB L500.82479 0-129 MG/DL High LDL 136 Result Comment: ___CHOLESTEROL/HDL RATIO RISK___ CHD RISK = Total CHOL LDL HDL (CHOL/HDL) Recommended <200 <130 >35 <3.4 Borderline 200-239 130-159 3.4-4.99 High >240 >160 >5.0 Performed By: #### L500.74381, L500.62723, L500.98564, L500.76612, L500.74961, L500.82536, L550.01321, L550.47235 #### [facility] [address] [place] [address] B12 Collected: 12/01/2017 Status: F Source: [facility] 7:55 AM [facility] REPOSITORY TYPE CODE TESTS RESULT OUT OF RANGE REFERENCE UNITS LAB L500.54961 193-986 PG/ML Normal B12 233.3 Performed By: #### L500.93935, L500.75600, L500.62165, L500.93293, L500.19423, L500.09238, L550.20071, L550.64115 #### [facility] [address] [place] [address] FOLIC ACID Collected: 12/01/2017 Status: F Source: [facility] 7:55 AM [facility] REPOSITORY TYPE CODE TESTS RESULT OUT OF RANGE REFERENCE UNITS LAB L500.27365 >3.0 NG/ML Normal FOLIC 23.4 ACID Performed By: #### L500.48535, L500.93761, L500.86330, L500.90092, L500.60081, L500.51025, L550.22779, L550.07032 #### [facility] [address] [place] [address] TSH Collected: 12/01/2017 Status: F Source: [facility] 7:55 AM [facility] REPOSITORY TYPE CODE TESTS RESULT OUT OF RANGE REFERENCE UNITS LAB L500.74315 0.358-3.740 UIU/ML Normal TSH 0.733 Result Comment: 3rd generation ultra sensitive TSH Performed By: #### L500.90477, L500.26924, L500.36815, L500.51580, L500.86166, L500.67689, L550.80751, L550.94581 #### [facility] [address] [place] [address] PROLACTIN Collected: 12/01/2017 Status: F Source: [facility] 7:55 AM [facility] REPOSITORY TYPE CODE TESTS RESULT OUT OF RANGE REFERENCE UNITS LAB L550.46382 2.1-17.7 NG/ML Normal PROLACTIN 5.1 Performed By: #### L500.42356, L500.54065, L500.89454, L500.66459, L500.13286, L500.83187, L550.08889, L550.79772 #### [facility] [address] [place] [address] [id number] Collected: 12/01/2017 Status: F Source: [facility] 7:55 AM [facility] REPOSITORY TYPE CODE TESTS RESULT OUT OF RANGE REFERENCE UNITS LAB L550.50032 30.0-100.0 NG/ML Low 15.0 [id number] Result Comment: Deficiency Less than 20 ng/mL Insufficiency 20 - Less than 30 ng/mL Sufficiency 30 - 100 ng/mL Performed By: #### L500.04707, L500.83595, L500.56821, L500.14595, L500.59149, L500.81237, L550.62353, L550.67555 #### [facility] [address] [place] [address] CBC Collected: 12/01/2017 Status: F Source: [facility] 7:55 AM [facility] REPOSITORY TYPE CODE TESTS RESULT OUT OF RANGE REFERENCE UNITS LAB L200.03065 4.5-11.0 K/CU MM Normal WBC 5.5 LAB L200.37421 4.50-6.00 M/CU MM Normal RBC 4.53 LAB L200.03095 13.5-17.5 GM/DL Normal HGB 14.3 LAB L200.20689 41.0-53.0 % Normal HCT 42.1 LAB L200.73448 80.0-99.0 fl Normal MCV 92.9 LAB L200.63348 32.0-36.0 GM/DL Normal MCHC 34.0 LAB L200.41856 11-14.5 Normal RDW 12.4 LAB L200.94142 9.4-12.4 Normal MPV 9.9 LAB L200.46916 150-450 K/CU MM Normal PLT 210 LAB L200.86360 Less than 1 % Normal NRBC 0.0 Performed By: #### L200.15038 #### [place] [address] PH# [phone] [facility] [address] [place] [address] #### L550.44886 #### [facility] [address] [place] [address] HGB A1C GLYCOHB Collected: 12/01/2017 Status: F Source: [facility] 7:55 AM [facility] REPOSITORY TYPE CODE TESTS RESULT OUT OF RANGE REFERENCE UNITS LAB L550.72958 4.3-6.0 % Normal HGB A1C 5.0 GLYCOHB Performed By: #### L200.72272 #### [address] [address] PH# [phone] [facility] [address] [place] [address] #### L550.28725 #### [facility] [address] [place], [place] [address] ALLERGIES ALLERGIES DATE TYPE / CODE NAME / CODE REACTION SEVERITY SOURCE 08/24/2018 Drug Penicillins/[id number] Rash Unknown [place] Allergy/416 476(RXNORM) Community 614639([facility] ED CT) Repository 08/24/2018 Drug Tetracyclines/F0010 Rash Unknown [place] Allergy/416 80461(RXNORM) Community 226795([facility] ED CT) Repository 08/24/2018 Drug ibuprofen/[id number] Swelling Unknown [place] Allergy/416 7(RXNORM) Community 011433([facility] ED CT) Repository 06/26/2018 DRUG IBUPROFEN [facility] INGREDI/419 Repository 317517(SNOM ED CT) 06/26/2018 Drug PENICILLINS [facility] Class/29429 Repository 1003(SNOMED CT) 06/26/2018 DRUG TETRACYCLINE [facility] INGREDI/419 Repository 233294(SNOM ED CT) 03/09/2018 DRUG IBUPROFEN GI UPSET [facility] INGREDI/419 [place] 515525(SNOM Repository ED CT) 02/11/2016 Drug PENICILLINS RASH [facility] Class/29141 [place] 1003(SNOMED Repository CT) 02/11/2016 DRUG TETRACYCLINE RASH [facility] INGREDI/419 [place] 118854(SNOM Repository ED CT) Drug PCN Moderate [place] Allergy/416 (penicillin)/569110 ([facility] 169032(SNOM 20(RXNORM) Modifier) Hospital ED CT) (Qualifier Repository Value) Drug TETRACYCLINE/412100 Moderate [place] Allergy/416 10(RXNORM) ([facility] 799330(SNOM Modifier) Hospital ED CT) (Qualifier Repository Value) Drug IBUPROFEN/86592692( Moderate [place] Allergy/416 RXNORM) ([facility] 219229(SNOM Modifier) Hospital ED CT) (Qualifier Repository Value) ENCOUNTERS ENCOUNTERS ADMIT/DISCHARGE ACCOUNT NUMBER ADMITTING ENCOUNTER LOCATION SOURCE CLASS 08/28/2018/08/28/19 [id number] Ambulatory [address] [place] Repository 08/28/2018/08/28/19 [id number] Ambulatory [address] [place] Repository 08/28/2018/08/29/19 [id number] Ambulatory [address] [place] Repository 08/24/2018/08/24/19 [id number] Emergency [place] [address] [place] [address] ding:ED Repository 08/22/2018/08/23/19 [id number] Ambulatory [address] [place] Repository 08/21/2018/08/21/19 [id number] Ambulatory [address] Repository 08/17/2018/08/18/19 [id number] Ambulatory [address] Repository 08/13/2018/08/13/19 [id number] Emergency Brandy Brandy [address] [place] [address] ding:ED Repository 08/11/2018/08/14/19 [id number] Ambulatory [address] Repository 08/07/2018/08/07/20 [id number] Ambulatory [address] Repository 08/07/2018/08/10/19 [id number] Ambulatory [address] Repository 07/19/2018/07/20/20 [id number] Ambulatory [address] Repository 06/26/2018/06/28/20 [id number] [facility] [place] [address] Room: Two 939Bed: B Repository 06/16/2018/06/19/20 [id number] Ambulatory [address] Repository 04/20/2018/04/20/20 [id number] [facility] [address] [place] [address] Room: ERBed: [facility] Repository 04/11/2018/04/11/20 [id number] Emergency [place] Brandy [address] [place] [address] ding:ED Repository 03/09/2018/03/09/20 [id number] Ambulatory [address] Repository 03/09/2018/03/10/20 [id number] Ambulatory [address] Repository 03/01/2018/03/03/20 [id number] Ambulatory [address] Repository 01/18/2018/01/20/20 [id number] Ambulatory [address] Repository 12/01/2017 [id number] Ambulatory [facility] Repository ng:JOSE PAYERS PAYERS ENCOUNTER GUARANTOR PAYER SUBSCRIBER SOURCE 08/24/2018 KEN Mercer Primary KEN Nava [id number] Insurance:PAMELAJANET CARLOSB: [id number]3WOOCritical access hospital [place]: [place] [id number]: 330 [id number] [phone] (HP) Date:5239-81-81UU [address] [place] [address]GA: 08/24/2018 Secondary NOT GIVENUNK [place] Insurance:SELF PAY [facility] Number: Effective Repository Date:2018-08-24 08/13/2018 KEN Mercer Primary KEN R Brandy [id number] Insurance:KAREN GONZALEZB: [id number] [id number] [facility] Number: [place]ository [place] [id number]: 330 [id number] [phone] (HP) Date:1539-14-87MS [address] [place] [address] 40542GB: 08/13/2018 Secondary NOT GIVENUNK [place] Insurance:SELF PAY [facility] Number: Effective Repository Date:2018-08-13 06/26/2018 KEN HAAS: Primary KEN [facility] Insurance:KAREN HAAS: Repository [facility] [id number], [place] Number: [id number] [place] [id number]: [phone] [id number] [place] [phone] (HP) Date:9345-45-38[place] [address] [address] [place] [id number]: 04/20/2018 KEN Mercer Primary KEN GONZALEZB: Insurance:KAREN GRIFFINB: [facility] [id number] REPLACED BY [facility] [id number] [facility] Repository [place], [place] Number: [place] [id number]: (224) [id number] [address] [phone] (HP) Date:Plan Name:X2 04/11/2018 KEN GRIFFIN431 Insurance:KAREN HAAS: Counts include 234 beds at the [facility] [id number]Policy Number: Repository [id number]: 330 [id number] [phone] (HP) Date:2277-73-50EC [address] [place], [place] [address]KE[place] [address]FE: 04/11/2018 Secondary NOT GIVENTIFFANI Nava Insurance:SELF PAY [facility] Number: Effective Repository Date:2018-04-11 12/01/2017 KEN Mercer Primary KNE [place] MARYANELLIS [place] Insurance:KAREN VERDIN [facility] PLANPolicy Repository [place] [address]Joy: (330) Number: [phone] [id number] Date:[address] [facility] HealthcareMichelleBURBANK HOSPITALKEITH WAYNE [address]CE:
== END 2018-08-24 23:25 | disposition home or self-care (01) ==
PROVIDERS: Emergency Provider Emergency Medicine; Family Provider Family Medicine; PCP Family Medicine
DX: S90.32XA Contusion of left foot, initial encounter (principal); S93.402A Sprain of unspecified ligament of left ankle, initial encounter; W01.0XXA Fall on same level from slipping, tripping and stumbling without subsequent striking against object, initial encounter; Y93.9 Activity, unspecified; Y92.000 Kitchen of unspecified non-institutional (private) residence as the place of occurrence of the external cause; Z72.0 Tobacco use
CPT/HCPCS: 73610; 73630; 99283

== ENCOUNTER 2021-02-16 11:19 | Emergency (ER) | payer MEDICAID, SELFPAY ==
[2021-02-16 11:20] VITALS: BP 129/85; PULSE 113; RESP 18; TEMP 35.9; O2SAT 98; BMI 26.1
--- NOTE | 2021-02-16 11:44 | EX.ED.DYSGE1 ---
HPI History of Present Illness Chief Complaint: Lower Extremity Injury Informant: patient Onset/Context/Timing Onset: Weeks Current Severity: Mild Maximum Severity: Mild Narrative Narrative: 45-year-old male who sees pain management. Has had a prior appendectomy and orbital fracture. Patient states for 2 weeks has had pain in his buttock none right lower leg. Worse with ambulation. Denies any prior surgery to his back hip or knee. No swelling. No history of DVT or PE. No recent travel no immobilization. No fall or trauma. Prior similar symptoms: No Recent Illness/Hospitalization: No PFSH PFSH Home Medications bupropion HCl 450 mg PO DAILY 04/11/18 [History Last Taken Unknown] quetiapine [Seroquel] 100 mg PO DAILY 04/11/18 [History Last Taken Unknown] meloxicam 15 mg PO DAILY 08/13/18 [History Last Taken Unknown] naproxen 500 mg PO BID #14 tab 08/24/18 [Rx Last Taken Unknown] naproxen 500 mg PO BID #14 tab 02/16/21 [Rx Last Taken Unknown] Allergy/AdvReac Type Severity Reaction Status Date / Time ibuprofen Allergy Swelling Verified 02/16/21 11:21 Penicillins [PCN] Allergy Rash Verified 02/16/21 11:21 Tetracyclines Allergy Rash Verified 02/16/21 11:21 Social History Smoking Status: Current every day smoker ROS ROS ED ROS Narrative Middle-age male complaining of right hip and buttock pain. No constitutional symptoms. Review of Systems ROS Unobtainable: Denies due to encephalopathy Constitutional Constitutional ED: Denies chills or fever(s) Eyes Eyes: Denies blurry vision or change in vision ENT ENT ED: Denies ear pain or sore throat Cardiovascular Cardiovascular: Denies chest pain Respiratory/Chest Respiratory/Chest: Denies cough or dyspnea Gastrointestinal Gastrointestinal: Denies abdominal pain, diarrhea, nausea or vomiting Genitourinary Genitourinary ED: Denies dysuria Musculoskeletal Musculoskeletal: Denies myalgias Integumentary Denies rash Neurologic Neurologic: Denies headache(s) Psychiatric Psychiatric: Denies depression Endocrine Endocrinology: Denies polyuria Allergic/Immunologic Allergic/Immunologic ED: Denies urticaria EXAM Physical Exam Narrative Exam Narrative: Middle-age male no acute distress. Vital signs stable afebrile. Lungs are clear. Heart regular rate and rhythm. Abdomen soft nontender. Back nontender. Mild tenderness to the right SI joint and positive straight leg raise on the right. Both lower extremities neurovascular intact with full range of motion of both hips, knees ankles and feet. Dorsi plantarflexion intact. There is no edema. No calf pain or swelling to either. Normal DP pulse. Normal touch sensation. Able to wiggle his toes. Positive straight leg raise on the right. Normal motor strength and sensation. Const Vital Signs: 02/16/21 11:20 Temperature 96.6 F L Temperature Source Temporal Pulse Rate 113 H Respiratory Rate 18 Blood Pressure 129/85 H Blood Pressure Mean 99 Pulse Ox 98 Oxygen Delivery Method Room Air Positive well nourished and well developed General Appearance ED: well developed HEENT Reports moist mucous membranes Negative for trauma or tenderness Eyes PERRL and EOMs intact bilaterally Neck supple and no JVD General: Negative for tenderness Chest Wall inspection of chest normal and palpation of chest normal Resp normal respiratory effort and clear to auscultation bilaterally Cardio regular rate, regular rhythm, S1 normal heart sound, S2 normal heart sound and no murmurs GI normal to inspection, nondistended, normoactive bowel sounds, non-tender and non-distended Palpation: soft Back/Spine no CVA tenderness Back/Spine Narrative: Right SI joint tenderness. Straight leg raise on the right. Extremity normal to inspection Extremity Narrative: Right leg is unremarkable exam other than positive straight leg raise. Normal range of motion of both the right hip, knee and ankle. Normal dorsi plantar flexion. Normal DP pulse. No calf tenderness or edema. No joint swelling. No signs of trauma. Neurovascular intact. General Extremety ED: Negative for edema or tenderness General Extremity: Negative for edema Neuro oriented x3, CN's II-XII intact bilaterally and no sensory deficits noted Sensorium / Orientation: alert Motor Exam: strength 5/5 throughout Psych mental status grossly normal Skin no rashes or lesions noted MDM MDM MDM Narrative Medical decision making narrative: Patient with acute sciatica. Needs no imaging or lab work. He will be started on Naprosyn. Follow-up with pain management doctor. Discharge Plan Triage Chief Complaint: Lower Extremity Injury ED Provider: Heri Bishop Dx/Rx/DC Orders Clinical Impression: Sciatica Instructions: ED Sciatica Prescriptions: New naproxen 500 mg tablet 500 mg PO BID Qty: 14 RF: 0 No Action quetiapine [Seroquel] 100 mg tablet 100 mg PO DAILY RF: 0 bupropion HCl 150 MG tablet extended release 24 hr 450 mg PO DAILY RF: 0 meloxicam 15 MG tablet 15 mg PO DAILY RF: 0 naproxen 500 MG tablet 500 mg PO BID Qty: 14 RF: 0 Primary Care Provider: Job Duff Referrals: Job Duff MD [Primary Care Provider] - 1 Week if not improving Activity Restrictions/Additional Instructions: Ice to right SI joint. Take medication as prescribed. Follow-up with your doctor or your pain management doctor if not improving. Disposition Disposition: Home, Self Care
== END 2021-02-16 12:16 | disposition home or self-care (01) ==
LOC: ED 12:11
PROVIDERS: Emergency Provider Emergency Medicine; PCP Family Medicine
DX: M54.30 Sciatica, unspecified side (principal); F17.200 Nicotine dependence, unspecified, uncomplicated
CPT/HCPCS: 99282

== ENCOUNTER 2021-04-24 16:44 | Emergency (ER) | payer MEDICAID, SELFPAY ==
[2021-04-24 16:46] VITALS: BP 117/70; PULSE 88; RESP 17; TEMP 36.7; O2SAT 98; BMI 25.0
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
--- NOTE | 2021-04-24 17:44 | ED.RN ---
pt was standing at his door window watching everyone walk by. ask pt to please have a seat to provide pt privacy to the others and they would be in to xray his hand shortly. SHORTLY AFTER THIS INTERACTION FOUND PT WALKING DOWN THE [employer]DENAS AND ASKED IF HE NEEDED ANYTHING. PT APPEARED ANXIOUS AND SAID HE NEEDED THE RESTROOM. DIRECTED THE PT TO THE RESTROOM WHICH WAS OCCUPIED. PT STATED HE WOULD WAIT. ASKED PT TO RETURN TO HIS ROOM SINCE HE WAS THE NEXT ONE TO BE XRAYED. PT DID. PT WAS THEN XRAYED AND TECH STATED HE NEEDED TO USE THE RESTROOM. TOLD PT HE COULD SINCE IT WAS EMPTY. PT PROCEEDED TO WALK PAST THE BATHROOM AND STATED HE WAS LEAVING BECAUSE HE DIDN'T LIKE THIS NURSES ATTITUDE. UNSURE OF ISSUE BUT PT QUICKLY AMBULATED FROM ER. PHYSICIAN AWARE.
== END 2021-04-24 18:10 | disposition left against medical advice (07) ==
PROVIDERS: Emergency Provider Emergency Medicine; PCP Family Medicine
DX: S60.221A Contusion of right hand, initial encounter (principal); W22.09XA Striking against other stationary object, initial encounter; Y93.89 Activity, other specified; Y92.9 Unspecified place or not applicable; Y99.8 Other external cause status; F17.210 Nicotine dependence, cigarettes, uncomplicated; Z53.29 Procedure and treatment not carried out because of patient's decision for other reasons
CPT/HCPCS: 73130; 99282

== ENCOUNTER 2021-06-05 19:54 | Emergency (ER) | payer MEDICAID, SELFPAY ==
[2021-06-05 19:55] VITALS: BP 116/94; PULSE 92; PULSE 94; RESP 16; RESP 18; TEMP 37; O2SAT 100; BMI 25.8
[2021-06-05 19:58] VITALS: BP 116/94; PULSE 91; RESP 18; TEMP 37; O2SAT 100
--- NOTE | 2021-06-05 20:46 | RAD_ITS ---
STUDY: X-RAY - LEFT ANKLE REASON FOR EXAM: Male, 46 years old. swelling TECHNIQUE: 3 view(s) of the ankle. COMPARISON: None. FINDINGS: Normal visualized distal tibia and fibula. Normal medial and lateral malleoli. Normal tibiotalar articulation and ankle mortise. Normal visualized talus and calcaneus. The visualized subtalar, talonavicular, calcaneocuboid and tarsal articulations are normal. Mild soft tissue swelling overlying the lateral malleolus.. RAD/Ankle min 3 Views IMPRESSION: Mild lateral malleolus sprain. No acute fracture or dislocation Electronically Signed: Isaiah Sorensen MD at 21:33 EDT , Service support ,
--- NOTE | 2021-06-05 20:46 | RAD_ITS ---
STUDY: X-RAY - LEFT FOOT CLINICAL: Male, 46 years old. swelling TECHNIQUE: 3 view(s) of the foot. COMPARISON: None. FINDINGS: Normal talus, calcaneus, and tarsal bones. Normal visualized subtalar, talonavicular, calcaneocuboid, tarsal and tarsometatarsal articulations. Normal metatarsi. Normal metatarsophalangeal joint of the great toe. Normal tibial and fibular sesamoid bones. Normal interphalangeal joint of the great toe. Normal phalanges of the great toe. Normal second through fifth metatarsophalangeal joints. Normal interphalangeal joints and phalanges of the lesser toes. The soft tissue structures are unremarkable. RAD/Foot min 3 Views IMPRESSION: Normal x-ray examination of the foot. Electronically Signed: Isaiah Sorensen MD at 21:32 EDT , Service support ,
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
--- NOTE | 2021-06-05 20:56 | US_ITS ---
STUDY: VENOUS DOPPLER ULTRASOUND - LEFT LOWER EXTREMITY REASON FOR EXAM: Male, 46 years old. LT LOWER LEG SWELLING AND LT POSTERIOR CALF REDDNESS TECHNIQUE: Ultrasound evaluation of the deep vein system to include trejo-scale imaging and compression was performed. Trejo-scale imaging and Doppler sonographic evaluation, including duplex spectral analysis and qualitative color flow sonography, was performed. COMPARISON: None. FINDINGS: Common Femoral Vein: Normal compression, spontaneity and augmentation. Normal color Doppler. Common Femoral Vein/Greater Saphenous Junction: Normal compression, spontaneity and augmentation. Normal color Doppler. Deep Femoral Vein: Normal compression, spontaneity and augmentation. Normal color Doppler. Femoral Proximal: Normal compression, spontaneity and augmentation. Normal color Doppler. Femoral Middle: Normal compression, spontaneity and augmentation. Normal color Doppler. Femoral Distal: Normal compression, spontaneity and augmentation. Normal color Doppler. Popliteal Vein: Normal compression, spontaneity and augmentation. Normal color Doppler. Posterior Tibial Vein: Normal compression, spontaneity and augmentation. Normal color Doppler. Peroneal Vein: Normal compression, spontaneity and augmentation. Normal color Doppler. Small hypoechoic area with internal hyperechoic change in the posterior left calf measuring 7 x 8 x 5 mm which has the appearance of a lymph node or possibly small hematoma. US/Venous Duplex Imag/Limited/Uni IMPRESSION: No evidence for deep venous thrombosis.. Question small hematoma or lymph node in the posterior aspect of the left calf Electronically Signed: Isaiah Sorensen MD at 21:36 EDT , Service support ,
[2021-06-05] MEDS: Smz/Tmp Ds Tablet 1 TABLET PO (21:46)
[2021-06-05] MEDS: Cephalexin 250 MG Capsule 500 MG PO (21:46)
== END 2021-06-05 21:58 | disposition home or self-care (01) ==
PROVIDERS: Emergency Provider Emergency Medicine; PCP Family Medicine
DX: L03.116 Cellulitis of left lower limb (principal); F17.210 Nicotine dependence, cigarettes, uncomplicated
CPT/HCPCS: 73610; 73630; 93971; 99283

== ENCOUNTER 2023-11-16 03:22 | Emergency (ER) | payer MEDICAID, SELFPAY ==
[2023-11-16 03:23] VITALS: BP 144/84; PULSE 104; RESP 16; TEMP 36.4; O2SAT 100; BMI 31.3
--- NOTE | 2023-11-16 03:39 | CT_ITS ---
EXAM: CT ABDOMEN AND PELVIS WITHOUT INTRAVENOUS CONTRAST CLINICAL INDICATION: kidney stone TECHNIQUE: Helically acquired images were obtained of the abdomen and pelvis without intravenous contrast. This CT exam was performed using one or more of the following dose reduction techniques: automated exposure control, adjustment of the mA and/or kV according to patient size, and/or use of iterative reconstruction technique. RADIATION DOSE: CTDIvol = 11.36 mGy, DLP = 672.91 mGy-cm COMPARISON: No relevant prior studies available. FINDINGS: LOWER THORAX: Unremarkable. Lung bases are clear. No cardiomegaly. No significant pericardial effusion. ABDOMEN: LIVER: There is diffuse low-attenuation of the liver. GALLBLADDER AND BILE DUCTS: Unremarkable. No calcified gallstones. No gallbladder distention or wall edema. No intra- or extrahepatic biliary ductal dilation. PANCREAS: Unremarkable. No focal cystic mass. SPLEEN: Unremarkable. Normal size without focal cystic or solid mass. ADRENALS: Unremarkable. No nodules. KIDNEYS AND URETERS: Tiny nonobstructing calculi bilateral kidneys. Normal renal size and position. STOMACH AND BOWEL: Unremarkable. No stomach or bowel distention. No focal inflammatory change. PELVIS: APPENDIX: Status post appendectomy. BLADDER: Unremarkable. REPRODUCTIVE: Unremarkable as visualized. No mass. ABDOMEN and PELVIS: INTRAPERITONEAL SPACE: Unremarkable. No ascites or other fluid collection. No free air. BONES/JOINTS: Unremarkable. No suspicious lytic or blastic abnormality. SOFT TISSUES: Small fat-containing paraumbilical hernia. VASCULATURE: Unremarkable. Abdominal aorta is non-dilated. LYMPH NODES: Unremarkable. No enlarged lymph nodes. CT/Abdomen/Pelvis without Cont IMPRESSION: 1. No acute abdominal pelvic abnormality. 2. Fatty liver. 3. Small fat-containing paraumbilical hernia. No bowel involvement. Electronically Signed: Tawanda Mao MD at 4:57 EDT ,
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
--- NOTE | 2023-11-16 03:44 | RAD_ITS ---
EXAM: XR CHEST, 1 VIEW CLINICAL INDICATION: rt rib pain TECHNIQUE: Frontal view of the chest. COMPARISON: No relevant prior studies available. FINDINGS: LUNGS AND PLEURAL SPACES: Low lung volumes limit the exam. No consolidations. No pneumothorax. No effusion. HEART: Unremarkable. Cardiac silhouette not enlarged. MEDIASTINUM: Central airways and mediastinal contour are unremarkable. BONES/JOINTS: Unremarkable. No acute fracture. SOFT TISSUES: Unremarkable. RAD/Chest 1 View (Portable) IMPRESSION: 1. No acute cardiopulmonary abnormality. 2. Low lung volumes limit the exam. No consolidations. Electronically Signed: Tawanda Mao MD at 4:32 EDT ,
[2023-11-16] MEDS: Ketorolac 30 MG/ML Syringe IV (04:00)
[2023-11-16 04:06] LABS: Absolute Lymphocyte Count 1.27 X10^3/uL (0.83-4.51); Absolute Neutrophil Count 7.2 X10^3/uL (2.0-7.7); Basophil# 0.05 X10^3/uL; Basophil% 0.6 % (0-1); Eosinophil# 0.07 X10^3/uL; Eosinophils% 0.8 % (0-5); Hematocrit 38.2 % (40-54); Hemoglobin 12.9 g/dL (13.0-16.5); Lymphocyte # 1.27 X10^3/ul (0.83-4.51); Mean Corp Hgb Conc 33.8 g/dL (32-36); Mean Corpuscular Hgb 30.6 pg (27.0-32.0); Mean Corpuscular Volume 90.5 fL (80-94); Mean Platelet Vol. 9.5 fl (6.2-12.0); Monocyte# 0.45 X10^3/uL; NRBC Flagged by Analyzer 0 % (0-5); Neutrophil % 79.3 % (47-70); Platelet Count 230 K/mm3 (150-450); RBC Distribution Width CV 13.1 % (11.6-14.6); RBC Distribution Width SD 42.6 fl (35.1-43.9); Red Blood Count 4.22 M/mm3 (4.6-6.2); White Blood Count 9.1 K/mm3 (4.4-11.0)
[2023-11-16 04:12] LABS: Bacteria 0 SEEN /hpf (None Seen); Mucous, Urine 0 SEEN /hpf (<or=2+); Squamous Epithelial Cells - UA 0 SEEN /hpf (0-5)
[2023-11-16 04:13] LABS: Color, Urine Yellow (Yellow); Glucose, Dipstick Normal (Normal); Ketone-Dipstick 50 mg/dl (Negative); Leukocyte Esterase-Dipstick 25 /ul (Negative); Nitrite-Dipstick Negative (Negative); Occult Blood-Urine 250 /ul (Negative); Protein-Dipstick 30 mg/dl (Negative); Specific Gravity, Urine 1.025 (1.002-1.030); Urine Bilirubin Dipstick Negative (Negative); Urine Clarity Clear (Clear); Urine Urobilinogen 1 mg/dl (Normal)
[2023-11-16 04:23] LABS: ALB/GLOB Ratio 0.9 RATIO (0.9-2.4); AST(SGOT) 35 U/L (15-37); Alanine Aminotransfer ALT/SGPT 70 U/L (16-61); Albumin, Serum 3.6 g/dL (3.2-5.0); Alkaline Phosphatase 42 U/L (45-117); Anion Gap 6 (5-15); BUN 20 mg/dL (7-18); BUN/Creat Ratio 19.2 RATIO (10-20); Chloride 105 mmol/L (98-107); Creatinine, Serum 1.04 mg/dL (0.70-1.30); EST Glomerular Filtration Rate 81 mL/min (>60); Est Glom Filt Rate - Afr Amer 98 mL/min (>60); Estimated Creatinine Clearance 102.52 ml/min; Globulin 3.9 g/dL (2.2-4.2); Glucose 109 mg/dL (74-106); Potassium 3.6 mmol/L (3.5-5.1); Protein, Total 7.5 g/dL (6.4-8.2); Sodium Level 139 mmol/L (136-145)
[2023-11-16 04:39] LABS: Red Blood Cells-Urine 10-25 SEEN /hpf (0-5); Transitional Epithelial - Ur 0-5 SEEN /hpf (0-5); White Blood Cells 0-5 SEEN /hpf (0-5)
[2023-11-16 04:40] LABS: Hyaline Cast 0-5 SEEN /lpf (0-5)
== END 2023-11-16 05:20 | disposition home or self-care (01) ==
PROVIDERS: Emergency Provider Emergency Medicine; PCP Family Medicine; Visit Provider Emergency Medicine
DX: N20.0 Calculus of kidney (principal); F17.210 Nicotine dependence, cigarettes, uncomplicated
CPT/HCPCS: 71045; 74176; 80053; 81001; 85025; 96374; 99283; A4216

== ENCOUNTER 2023-11-22 21:34 | Emergency (ER) | payer MEDICAID, SELFPAY ==
[2023-11-22 21:36] VITALS: BP 140/90; PULSE 122; RESP 20; TEMP 36.3; O2SAT 98
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
--- NOTE | 2023-11-22 22:32 | CT_ITS ---
INDICATION: Abdominal pain COMPARISON: 11/16/[address] A radiation dose optimization technique was used for this scan. RADIATION DOSAGE (If Supplied By Facility): CTDIvol/DLP = ( 12.32 ) / ( 732.94 ) mGy/mGycm FINDINGS: Noncontrast serial CT axial images through the abdomen and pelvis with coronal and sagittal reformatted series. PANCREAS: No peripancreatic fat stranding. BOWEL/MESENTERY: No dilated bowel loops. No significant free fluid. No free air. GALLBLADDER: No pericholecystic fat stranding. LIVER/STOMACH: Fatty liver. Hepatic dome is partially excluded. URINARY COLLECTING SYSTEM/ KIDNEYS: No obstructing ureteral calculus. No significant renal parenchymal abnormality. APPENDIX: Absent appendix with pericecal surgical clips. SPLEEN: Mild splenomegaly measuring up to 14 cm. ABDOMINAL WALL: Multiloculated narrowneck fat-containing umbilical hernia with some hazy fat stranding. LUNG BASES: Unremarkable. BONES: Lumbar dextroscoliosis with associated focal degenerative change. CT/Abdomen/Pelvis without Cont IMPRESSION: Multiloculated narrowneck fat-containing umbilical hernia with some hazy fat stranding, which may represent inflammatory change. Correlate with physical examination for point tenderness if concern for strangulated fat. No acute abdominal abnormality is otherwise identified. Mild splenomegaly. Fatty liver. Electronically Signed: Lucho Tripp MD at 23:56 EDT ,
[2023-11-22 23:04] LABS: Absolute Lymphocyte Count 2.42 X10^3/uL (0.83-4.51); Absolute Neutrophil Count 3.6 X10^3/uL (2.0-7.7); Basophil# 0.04 X10^3/uL; Basophil% 0.6 % (0-1); Eosinophil# 0.18 X10^3/uL; Eosinophils% 2.6 % (0-5); Hematocrit 38.5 % (40-54); Lymphocyte # 2.42 X10^3/ul (0.83-4.51); Lymphocyte % 35.5 % (19-41); Mean Corp Hgb Conc 33.8 g/dL (32-36); Mean Corpuscular Hgb 30.7 pg (27.0-32.0); Mean Platelet Vol. 9.7 fl (6.2-12.0); Monocyte# 0.53 X10^3/uL; Monocyte% 7.8 % (0-10); NRBC Flagged by Analyzer 0 % (0-5); Neutrophil # 3.63 X10^3/uL (2.7-7.7); Neutrophil % 53.2 % (47-70); Platelet Count 237 K/mm3 (150-450); RBC Distribution Width CV 13.3 % (11.6-14.6); RBC Distribution Width SD 43.6 fl (35.1-43.9); Red Blood Count 4.23 M/mm3 (4.6-6.2); White Blood Count 6.8 K/mm3 (4.4-11.0)
[2023-11-22] MEDS: 0.9% Normal Saline (1000mL) 1,000 ML 1000 ML IV (23:06)
[2023-11-22] MEDS: Ondansetron 4 MG/2 ML Vial IV (23:07)
[2023-11-22 23:13] LABS: Color, Urine Amber (Yellow); Glucose, Dipstick Normal (Normal); Leukocyte Esterase-Dipstick 100 /ul (Negative); Nitrite-Dipstick Positive (Negative); Occult Blood-Urine 10 /ul (Negative); Protein-Dipstick 30 mg/dl (Negative); Urine Clarity Sl. Cloudy (Clear); Urine Urobilinogen 4 mg/dl (Normal)
[2023-11-22 23:17] LABS: Urine Bilirubin Dipstick 3 mg/dL (Negative)
[2023-11-22 23:19] LABS: Bacteria 1+ /hpf (None Seen); Ketone-Dipstick 150 mg/dl (Negative); Mucous, Urine 4+ /hpf (<or=2+); Red Blood Cells-Urine 5-10 SEEN /hpf (0-5); Squamous Epithelial Cells - UA 5-10 SEEN /hpf (0-5); White Blood Cells 5-10 SEEN /hpf (0-5)
[2023-11-22 23:25] LABS: Alcohol, Blood (Medical)-Serum < 3.0 mg/dL
[2023-11-22 23:29] LABS: AST(SGOT) 40 U/L (15-37); Alanine Aminotransfer ALT/SGPT 72 U/L (16-61); Albumin, Serum 3.7 g/dL (3.2-5.0); Alkaline Phosphatase 39 U/L (45-117); Anion Gap 6 (5-15); BUN 20 mg/dL (7-18); BUN/Creat Ratio 21.3 RATIO (10-20); Calcium,Total 9.1 mg/dL (8.5-10.1); Chloride 108 mmol/L (98-107); Creatinine, Serum 0.94 mg/dL (0.70-1.30); EST Glomerular Filtration Rate 91 mL/min (>60); Est Glom Filt Rate - Afr Amer 110 mL/min (>60); Estimated Creatinine Clearance 111.18 ml/min; Globulin 3.8 g/dL (2.2-4.2); Glucose 107 mg/dL (74-106); Lipase 27 U/L (13-75); Potassium 3.2 mmol/L (3.5-5.1); Protein, Total 7.5 g/dL (6.4-8.2); Sodium Level 141 mmol/L (136-145)
[2023-11-22 23:43] LABS: Amphetamine Urine VISTA POSITIVE (<1000 ng/mL); Barbiturate Urine VISTA NEGATIVE (< 200 ng/mL); Benzodiazepine Urine VISTA NEGATIVE (< 200 ng/mL); Cocaine Urine VISTA NEGATIVE (< 300 ng/mL); Ecstacy Urine VISTA POSITIVE (< 500 ng/mL); Methadone Urine VISTA NEGATIVE (< 300 ng/mL); PCP Urine VISTA NEGATIVE (< 25 ng/mL); THC Urine VISTA NEGATIVE (< 50 ng/mL); Vista UDS pH Range 6
[2023-11-23] MEDS: Smz/Tmp Ds Tablet 1 TABLET PO (00:40)
[2023-11-23] MEDS: Potassium Chloride Oral Tablet 20 MEQ 40 MEQ PO (00:40)
[2023-11-23 00:43] VITALS: BP 117/72; PULSE 71; RESP 15; TEMP 36.2; O2SAT 92
[2023-11-23 00:51] VITALS: BP 117/72; PULSE 71; RESP 15; TEMP 36.2; O2SAT 92
== END 2023-11-23 00:53 | disposition home or self-care (01) ==
PROVIDERS: Emergency Provider Emergency Medicine; PCP Family Medicine; Visit Provider Emergency Medicine
DX: N39.0 Urinary tract infection, site not specified (principal); E86.0 Dehydration; F17.210 Nicotine dependence, cigarettes, uncomplicated
CPT/HCPCS: 74176; 80053; 80307; 80320; 81001; 83690; 85025; 87086; 87088; 96361; 96374; 99284; J7030; G0480; J2405

== ENCOUNTER 2024-01-03 08:17 | Emergency (ER) | payer MEDICAID, SELFPAY ==
[2024-01-03 08:17] VITALS: BP 129/94; PULSE 110; RESP 16; TEMP 36.6; O2SAT 99; BMI 28.3
[2024-01-03 08:42] LABS: Mucous, Urine 0 SEEN /hpf (<or=2+); White Blood Cells 0 SEEN /hpf (0-5)
[2024-01-03 08:43] LABS: Absolute Lymphocyte Count 1.76 X10^3/uL (0.83-4.51); Absolute Neutrophil Count 4.2 X10^3/uL (2.0-7.7); Basophil# 0.03 X10^3/uL; Basophil% 0.4 % (0-1); Eosinophil# 0.24 X10^3/uL; Eosinophils% 3.6 % (0-5); Hematocrit 43.5 % (40-54); Hemoglobin 14.4 g/dL (13.0-16.5); Lymphocyte # 1.76 X10^3/ul (0.83-4.51); Lymphocyte % 26.2 % (19-41); Mean Corp Hgb Conc 33.1 g/dL (32-36); Mean Corpuscular Volume 93.5 fL (80-94); Mean Platelet Vol. 9.7 fl (6.2-12.0); Monocyte# 0.43 X10^3/uL; Monocyte% 6.4 % (0-10); NRBC Flagged by Analyzer 0 % (0-5); Neutrophil # 4.24 X10^3/uL (2.7-7.7); Neutrophil % 63.1 % (47-70); Platelet Count 271 K/mm3 (150-450); RBC Distribution Width CV 13.3 % (11.6-14.6); RBC Distribution Width SD 45.2 fl (35.1-43.9); Red Blood Count 4.65 M/mm3 (4.6-6.2); White Blood Count 6.7 K/mm3 (4.4-11.0)
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
[2024-01-03] MEDS: Ketorolac 30 MG/ML Syringe IV (08:48)
[2024-01-03] MEDS: Ondansetron 4 MG/2 ML Vial IV (08:48)
[2024-01-03] MEDS: 0.9% Normal Saline (1000mL) 1,000 ML 999 ML IV (08:48)
[2024-01-03 09:07] LABS: Color, Urine Yellow (Yellow); Glucose, Dipstick Normal (Normal); Ketone-Dipstick 5 mg/dl (Negative); Leukocyte Esterase-Dipstick Negative /ul (Negative); Nitrite-Dipstick Negative (Negative); Occult Blood-Urine 10 /ul (Negative); Protein-Dipstick 30 mg/dl (Negative); Specific Gravity, Urine 1.025 (1.002-1.030); Urine Bilirubin Dipstick Negative (Negative); Urine Clarity Clear (Clear); Urine Urobilinogen Normal (Normal)
[2024-01-03 09:12] LABS: Anion Gap 5 (5-15); BUN 17 mg/dL (7-18); BUN/Creat Ratio 16.8 RATIO (10-20); Calcium,Total 9.4 mg/dL (8.5-10.1); Chloride 111 mmol/L (98-107); Creatinine, Serum 1.01 mg/dL (0.70-1.30); EST Glomerular Filtration Rate 84 mL/min (>60); Est Glom Filt Rate - Afr Amer 101 mL/min (>60); Estimated Creatinine Clearance 100.65 ml/min; Glucose 144 mg/dL (74-106); Potassium 3.6 mmol/L (3.5-5.1); Sodium Level 139 mmol/L (136-145)
[2024-01-03 09:17] LABS: Bacteria 1+ /hpf (None Seen); Red Blood Cells-Urine 0-5 SEEN /hpf (0-5); Squamous Epithelial Cells - UA 0-5 SEEN /hpf (0-5)
[2024-01-03 09:39] LABS: AST(SGOT) 23 U/L (15-37); Alanine Aminotransfer ALT/SGPT 34 U/L (16-61); Albumin, Serum 3.4 g/dL (3.2-5.0); Alkaline Phosphatase 44 U/L (45-117); Bilirubin, Direct 0.15 mg/dL (0.00-0.30); Globulin 4.4 g/dL (2.2-4.2); Lipase 25 U/L (13-75); Protein, Total 7.8 g/dL (6.4-8.2)
[2024-01-03 10:21] VITALS: BP 127/89; PULSE 62; RESP 15; TEMP 36.4; O2SAT 96
== END 2024-01-03 10:23 | disposition home or self-care (01) ==
PROVIDERS: Emergency Provider Emergency Medicine; Visit Provider Emergency Medicine
DX: R42 Dizziness and giddiness (principal); R11.2 Nausea with vomiting, unspecified; F17.210 Nicotine dependence, cigarettes, uncomplicated
CPT/HCPCS: 80048; 80076; 81001; 83690; 85025; 96361; 96374; 96375; 99283; J7030; A4216; J2405

== ENCOUNTER 2024-03-04 01:25 | Emergency (ER) | payer MEDICAID, SELFPAY ==
[2024-03-04 01:26] VITALS: BP 109/85; PULSE 99; RESP 18; TEMP 36.6; O2SAT 98; BMI 27.5
[2024-03-04] MEDS: Lidocaine 2% /Epi 1:100 (20ml) 20 ML VIAL INFILT (01:55)
[2024-03-04] MEDS: Diphth,Pertuss(Acell),Tet Vac 0.5 ML Vial IM (01:55)
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
--- NOTE | 2024-03-04 03:02 | NURSING ---
Pt had 9 sutures placed, Bacitraycin applied, covered. Pt tollerated well.
== END 2024-03-04 03:08 | disposition home or self-care (01) ==
PROVIDERS: Emergency Provider Emergency Medicine; Visit Provider Emergency Medicine
DX: S61.411A Laceration without foreign body of right hand, initial encounter (principal); W26.0XXA Contact with knife, initial encounter; Y93.89 Activity, other specified; F17.210 Nicotine dependence, cigarettes, uncomplicated; Z23 Encounter for immunization
CPT/HCPCS: 12002; 90715; 99282

== ENCOUNTER 2024-03-08 07:20 | Emergency (ER) | payer MEDICAID, SELFPAY ==
[2024-03-08 07:21] VITALS: BP 136/99; PULSE 124; RESP 18; TEMP 37.3; O2SAT 99; BMI 27.5
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
[2024-03-08] MEDS: Fluorescein 1 MG STRIP 1 STRIP LEFT EYE (07:46)
[2024-03-08] MEDS: Tetracaine 0.5% Ophthalmic Bottle 1 DRP LEFT EYE (07:46)
[2024-03-08 08:22] VITALS: BP 131/72; PULSE 69; RESP 15; TEMP 36.2; O2SAT 99
== END 2024-03-08 08:23 | disposition home or self-care (01) ==
PROVIDERS: Emergency Provider Emergency Medicine; Visit Provider Emergency Medicine
DX: H10.9 Unspecified conjunctivitis (principal); F17.210 Nicotine dependence, cigarettes, uncomplicated
CPT/HCPCS: 99282

== ENCOUNTER 2024-08-06 13:25 | Emergency (ER) | payer MEDICAID, SELFPAY ==
[2024-08-06 13:27] VITALS: BP 147/107; PULSE 86; RESP 18; TEMP 36.3; O2SAT 100; BMI 30.9
== END 2024-08-06 14:23 | disposition left against medical advice (07) ==
LOC: ED 14:34
DX: Z53.21 Procedure and treatment not carried out due to patient leaving prior to being seen by health care provider (principal)

== ENCOUNTER 2024-09-16 22:51 | Emergency (ER) | payer MEDICAID, SELFPAY ==
[2024-09-16 22:51] VITALS: BP 139/95; PULSE 103; RESP 17; TEMP 37.1; O2SAT 98; BMI 29.5
--- NOTE | 2024-09-16 22:58 | EX.ED.DYSGE1 ---
HPI History of Present Illness Chief Complaint: Rash Narrative Narrative: Chief complaint and HPI: Bilateral thigh rash. 49-year-old male with past medical history of depression presents for evaluation of bilateral thigh rash. Patient states on Tuesday he developed redness of the inner bilateral thighs. He states that this has not improved which is why he presents. Patient states that he has been working out more. Taking daily showers. Denies rash elsewhere. Denies any fever, chills, nausea, vomiting Review of systems: See HPI Medications: As listed on the chart Allergies: As listed on the chart PFSH: Per chart Vital signs: As listed on the chart. Reviewed. Physical exam: Gen: A&O x3, NAD Head: Normocephalic, atraumatic Eyes: No sclera icterus, conjunctiva clear ENT: Moist mucous membranes CV: RRR, no murmurs, no peripheral edema Resp: Lungs CTA BL, no w/r/c GI: Abd soft, non-distended, non-tender, no r/r/g Musc: Full ROM, no deformity Skin: Warm, patient has very dry skin to the bilateral inner thighs with mild erythema consistent with dry skin that is chafing from the bilateral thighs rubbing together. No cellulitis. No warmth. No ulcerations. There is no rash in the groin. No vesicles, petechiae/purpura, no skin sloughing or mucosal involvement, no crepitus. No weeping or drainage. Neuro: Alert, oriented, grossly intact, sensation intact Psych: Cooperative, appropriate mood and affect [facility] Medical History Facial trauma Sciatica Home Medications ?Medication ?Instructions ?Recorded ?Last Taken ?Type bupropion HCl 300 mg 24 hr tablet, 300 mg PO DAILY 11/16/23 Unknown History extended release (Wellbutrin XL) Allergy/AdvReac Type Severity Reaction Status Date / Time Penicillins (PCN) Allergy Rash Verified 09/16/24 22:51 Tetracyclines Allergy Rash Verified 09/16/24 22:51 Surgical History Hx of appendectomy S/P ORIF (open reduction internal fixation) fracture Social History Smoking Status: Current every day smoker tobacco type: cigarettes substance use type: does not use EXAM Physical Exam Const Vital Signs: 09/16/24 22:51 Temperature 98.8 F Temperature Source Oral Pulse Rate 103 H Respiratory Rate 17 Blood Pressure 139/95 H Blood Pressure Mean 109 Pulse Ox 98 Oxygen Delivery Method Room Air MDM MDM MDM Narrative Medical decision making narrative: 49-year-old male with past medical history of depression presents for evaluation of bilateral thigh rash. See physical exam findings. Physical exam findings are consistent with dry skin that is chafing from his inner thighs rubbing together or rubbing on clothes. This would be consistent with the patient working out a lot. He states he has not been using any lotions. He has not changed any soaps or body products therefore I do not think this is allergic dermatitis. Not cellulitis patient was educated to get [id number] lotion and apply twice a day especially when out of the shower. Follow-up with primary care physician. He confirmed understanding of the plan. Impression: 1. Dry skin of the bilateral thighs Discharge Plan Triage Chief Complaint: Rash ED Provider: Nico Sahni Dx/Rx/DC Orders Prescriptions: No Action bupropion HCl [Wellbutrin XL] 300 mg tablet extended release 24 hr 300 mg PO DAILY Primary Care Provider: Care Physician,Jennifer Primary Referrals: Care Physician,No Primary [Primary Care Provider] - Print Language: Austrian
== END 2024-09-16 23:09 | disposition home or self-care (01) ==
PROVIDERS: Emergency Provider Surgery; Visit Provider Surgery
DX: R21 Rash and other nonspecific skin eruption (principal); F17.210 Nicotine dependence, cigarettes, uncomplicated
CPT/HCPCS: 99282

== ENCOUNTER 2024-09-29 01:17 | Emergency (ER) | payer MEDICAID, SELFPAY ==
[2024-09-29 01:19] VITALS: BP 113/8; PULSE 95; RESP 16; TEMP 36.6; O2SAT 97; BMI 30.4
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
[2024-09-29] MEDS: Triamcinolone 0.1% Ointment 15 gm tube 1 APPLIC TOPICAL (03:04)
== END 2024-09-29 03:08 | disposition home or self-care (01) ==
PROVIDERS: Emergency Provider Emergency Medicine; Visit Provider Emergency Medicine
DX: L30.9 Dermatitis, unspecified (principal); F17.210 Nicotine dependence, cigarettes, uncomplicated
CPT/HCPCS: 99283